=== PATIENT | male | born 1935 | race Caucasian/White ===

== ENCOUNTER → 2016-04-01 | Outpatient (REF) | payer OTHER ==
[~2016-04-01] MED LIST: AMLO10TA2 PO; ELIQ5TAB PO; K-TA1TAB PO; METO25TAB PO; PRAV40TA2 PO; PROA1AER INH; QUIN40TA5 PO; VITA200038 PO
[2016-04-01 14:44] LABS: PHOSPHORUS LEVEL 3.3 MG/DL (2.5-4.9)
== END ==
LOC: M LAB REF 13:24
DX: E21.3 Hyperparathyroidism, unspecified (principal)

== ENCOUNTER 2016-05-14 08:04 | Emergency (ER) | payer OTHER ==
[2016-05-14] MEDS ORDERED: OXYMETAZOLINE NASAL SPRAY (AFRIN) As Ordered ONE (08:31)
[2016-05-14 08:49] LABS: BASO # 0.1 K/mm3 (0.0-0.2); BASO % 0.5 % (0.0-1.0); EOS # 0.4 K/mm3 (0.0-0.50); EOS % 3.2 % (0.0-3.0); LARGE UNSTAINED CELL # 0.3 K/mm3 (0.0-0.4); LARGE UNSTAINED CELL % 2.7 % (0.0-4.0); LYMPH # 1.7 K/mm3 (1.5-4.5); LYMPH % 14.4 % (24.0-44.0); MEAN CORPUSCULAR HEMOGLOBIN 30.4 pg (27.0-33.0); MEAN CORPUSCULAR HGB CONC 33.3 g/dl (32.0-36.5); MEAN CORPUSCULAR VOLUME 91.2 fl (80.0-96.0); MONO # 0.6 K/mm3 (0.0-0.8); MONO % 4.8 % (0.0-5.0); NEUTROPHILS # 8.6 K/mm3 (1.8-7.7); NEUTROPHILS % 74.3 % (36.0-66.0); PLATELET COUNT, AUTOMATED 317 k/mm3 (150-450); WHITE BLOOD COUNT 11.5 K/mm3 (4.0-10.0)
[2016-05-14 08:55] LABS: INR 1.34
[2016-05-14 09:16] LABS: CALCIUM LEVEL 9.8 MG/DL (8.8-10.2); CREATININE FOR GFR 1.64 MG/DL (0.70-1.30); GLOMERULAR FILTRATION RATE 43.2 (>35); POTASSIUM SERUM 3.5 MEQ/L (3.5-5.1)
--- NOTE | 2016-05-14 11:18 | EDDOCDS ---
Physician Documentation [facility] Name: Callum Muse Age: 80 yrs Sex: Male : 1935 Arrival Date: 05/14/2016 Time: 08:04 Bed 9 Private MD: Donal Disposition: 05/14/16 11:07 Discharged to Home/Self Care. Impression: Epistaxis. - Condition is Stable. - Discharge Instructions: Nosebleed. - Medication Reconciliation, Local Pharmacy Hours form. - Follow up: Aniket Mansfield MD; When: 2 - 3 days; Reason: Recheck today's complaints. Follow up: Your own Physician; When: 2 - 3 days; Reason: Recheck today's complaints. Follow up: Larisa Acevedo; When: 2 - 3 days; Reason: Recheck today's complaints. - Problem is new. - Symptoms are resolved. - Notes: You were seen in the ED for nosebleed which resolved with pressure, cotton packing, and Afrin. We have discussed the case with your ENT physician Dr. Hooker who has recommended you may return home to follow up in the office - please call to arrange your appointment. You may hold today's Eliquis dose as this places you at risk for bleeding. Call your dough scaler and mixer Dr. Acevedo today to discuss the Eliquis and when you may resume it due to your nosebleeds. Bloodwork showed no acute findings but did show a slight decrease in kidney function. Please call your primary doctor to disuss this and arrange to be seen in the office for recheck. No nose blowing. Put nothing in the nose. Return to the ED for any return of bleeding down the back of the throat, bleeding that does not resolved with pressure, or any other concerns. Historical: - Allergies: Steroids; - Home Meds: 1. Eliquis oral Unknown oral 2 times per day - PMHx: Hypertension; Atrial Fib; Sleep Apnea w/ BiPap; CHF; - PSHx: TURP; - Social history: Smoking status: Patient states former smoker of tobacco. No barriers to communication noted, The patient speaks fluent Algerian, Speaks appropriately for age. - Family history: Not pertinent. - : The pt / caregiver states he / she is on anticoagulants: Eliquis Home medication list is obtained from family members. - Exposure Risk Screening:: None identified. Vital Signs: 05/14 08:14 BP 159 / 101; Pulse 106; Resp 16; Temp 97.0(TE); Pulse Ox 98% on R/A; Weight 92.53 kg / mlb1 203.99 lbs (R); Height 5 ft. 10 in. (177.80 cm) (R); Pain 0/10; 08:46 BP 164 / 99 (auto/); js13 08:46 Pulse 102 MON; Resp 16; Pulse Ox 98% ; js13 08:48 BP 151 / 82 (auto/); js13 08:48 Pulse 96 MON; Resp 16; Pulse Ox 93% on R/A; js13 09:01 BP 173 / 80 (auto/); js13 09:01 Pulse 92 MON; Resp 16; Pulse Ox 94% on R/A; js13 09:16 BP 171 / 78 (auto/); js13 09:16 Pulse 86 MON; Resp 16; Pulse Ox 96% on R/A; js13 09:31 BP 175 / 76 (auto/); js13 09:31 Pulse 108 MON; Resp 16; Pulse Ox 94% on R/A; js13 09:46 BP 159 / 74 (auto/); js13 09:46 Pulse 90 MON; Resp 14; Pulse Ox 95% on R/A; js13 10:01 BP 156 / 69 (auto/); js13 10:01 Pulse 88 MON; Resp 14; Pulse Ox 95% on R/A; js13 10:16 BP 171 / 81 (auto/); js13 10:16 Pulse 86 MON; Resp 16; Pulse Ox 96% on R/A; js13 10:31 BP 184 / 89 (auto/); js13 10:31 Pulse 90 MON; Resp 16; Pulse Ox 97% on R/A; js13 10:46 BP 157 / 66 (auto/); jo3 10:46 Pulse 88 MON; Resp 16; Pulse Ox 96% on R/A; jo3 11:01 BP 146 / 79 (auto/); jo3 11:01 Pulse 88 MON; Resp 16; Temp 97.1(O); Pulse Ox 96% on R/A; js13 08:14 Body Mass Index 29.27 (92.53 kg, 177.80 cm) mlb1 MDM: 08:35 IV Saline Lock ordered. br1 08:35 Pharmaceutical Sales/Pulse Ox/q 30 min VS ordered. br1 08:35 Recheck B/P ordered. br1 08:36 CBC with Diff Ordered. EDMS 08:36 BMP Ordered. EDMS 08:36 PT/INR Ordered. EDMS 08:36 PTT Ordered. EDMS 08:52 Financial registration complete. lg 09:21 CBC with Diff Reviewed. br1 09:21 PT/INR Reviewed. br1 09:21 PTT Reviewed. br1 09:43 [place] [place] was scanned into DocDep and attached to record. lg 10:41 BMP Reviewed. br1 Signatures: Dispatcher MedHost EDMS Dustin Rosario, Justin Reg lg Dmitri Saldana RN RN mlb1 Nain Avila MD MD br1 Charlee Paulino RN RN js13 The chart was reviewed and I authenticate all verbal orders and agree with the evaluation and treatment provided.Attachments: 09:43 [facility] [place] Agreement lg MTDD
--- NOTE | 2016-05-14 11:18 | EDDOCDS ---
Nurse's Notes [facility] Name: Callum Muse Age: 80 yrs Sex: Male : 1935 Arrival Date: 05/14/2016 Time: 08:04 Bed 9 Private MD: Donal Diagnosis: Epistaxis Presentation: 05/14 08:10 Presenting complaint: Patient states: Nose bleed right nares since 0530 this am. Adult mlb1 Sepsis Screening: The patient does not have new or worsening altered mentation. Patient's respiratory rate is less than 22. Systolic blood pressure is greater than 100. Patient has a qSOFA score of 0- Negative Sepsis Screen. Suicide/Homicide risk assessment- the patient denies having any suicidal and/or homicidal ideations and does not present with any other emotional, behavioral or mental health complaints. Status: Patient is not a radiology equipment servicer or dependent. Transition of care: patient was not received from another setting of care. 08:10 Acuity: TYRON Level 3 mlb1 08:10 Method Of Arrival: Walkin/Carried/Asstd mlb1 Triage Assessment: 08:15 General: Appears in no apparent distress, Behavior is anxious, cooperative. Pain: mlb1 Denies pain. EENT: Nares with bleeding noted on right. Historical: - Allergies: Steroids; - Home Meds: 1. Eliquis oral Unknown oral 2 times per day - PMHx: Hypertension; Atrial Fib; Sleep Apnea w/ BiPap; CHF; - PSHx: TURP; - Social history: Smoking status: Patient states former smoker of tobacco. No barriers to communication noted, The patient speaks fluent Irish, Speaks appropriately for age. - Family history: Not pertinent. - : The pt / caregiver states he / she is on anticoagulants: Eliquis Home medication list is obtained from family members. - Exposure Risk Screening:: None identified. Screenin:37 Screening information is obtained from the patient. Fall risk: At risk due to age. js13 Assistance ADL's: requires no assistance with activities of daily living. Abuse/DV Screen: The patient / caregiver reports he/she is: not in a situation that causes fear, pain or injury. Nutritional screening: No deficits noted. Advance Directives: There is no active DNR order. home support is adequate. Assessment: 09:35 General: Appears in no apparent distress, Behavior is appropriate for age, cooperative. js13 Pain: Denies pain. Neurological: Level of Consciousness is awake, alert. EENT: Nares with bleeding noted on right bleeding controlled and Afrin nasal spray applied to cotton balls and packed into right nare. . Cardiovascular: Chest pain is denied. Respiratory: Airway is patent Respiratory effort is even, unlabored, Respiratory pattern is regular, symmetrical, Breath sounds are clear Reports shortness of breath since past month. Derm: Skin is pink, warm & dry. 10:40 General: Appears in no apparent distress, comfortable, Behavior is appropriate for age, js13 cooperative. Pain: Denies pain. Neurological: Level of Consciousness is awake, alert. EENT: Nares BLEEDING HAS STOPPED. Respiratory: Airway is patent Respiratory effort is even, unlabored, Respiratory pattern is regular. Derm: Skin is pink, warm & dry. 11:04 Adult Sepsis Screening: The patient does not have new or worsening altered mentation. jo3 Patient's respiratory rate is less than 22. Systolic blood pressure is greater than 100. Patient has a qSOFA score of 0- Negative Sepsis Screen. General: Appears in no apparent distress, comfortable, Behavior is appropriate for age, cooperative. Pain: Denies pain. Neurological: Level of Consciousness is awake, alert. EENT: Nares on right Bleeding stopped. Respiratory: Airway is patent Respiratory effort is even, unlabored, Respiratory pattern is regular, symmetrical. Derm: Skin is pink, warm & dry. Vital Signs: 08:14 BP 159 / 101; Pulse 106; Resp 16; Temp 97.0(TE); Pulse Ox 98% on R/A; Weight 92.53 kg mlb1 (R); Height 5 ft. 10 in. (177.80 cm) (R); Pain 0/10; 08:46 BP 164 / 99 (auto/); js13 08:46 Pulse 102 MON; Resp 16; Pulse Ox 98% ; 13 08:48 BP 151 / 82 (auto/); 13 08:48 Pulse 96 MON; Resp 16; Pulse Ox 93% on R/A; 13 09:01 BP 173 / 80 (auto/); 13 09:01 Pulse 92 MON; Resp 16; Pulse Ox 94% on R/A; 09:16 BP 171 / 78 (auto/); 13 09:16 Pulse 86 MON; Resp 16; Pulse Ox 96% on R/A; js13 09:31 BP 175 / 76 (auto/); js13 09:31 Pulse 108 MON; Resp 16; Pulse Ox 94% on R/A; js13 09:46 BP 159 / 74 (auto/); js13 09:46 Pulse 90 MON; Resp 14; Pulse Ox 95% on R/A; js13 10:01 BP 156 / 69 (auto/); js13 10:01 Pulse 88 MON; Resp 14; Pulse Ox 95% on R/A; js13 10:16 BP 171 / 81 (auto/); js13 10:16 Pulse 86 MON; Resp 16; Pulse Ox 96% on R/A; js13 10:31 BP 184 / 89 (auto/); js13 10:31 Pulse 90 MON; Resp 16; Pulse Ox 97% on R/A; js13 10:46 BP 157 / 66 (auto/); jo3 10:46 Pulse 88 MON; Resp 16; Pulse Ox 96% on R/A; jo3 11:01 BP 146 / 79 (auto/); jo3 11:01 Pulse 88 MON; Resp 16; Temp 97.1(O); Pulse Ox 96% on R/A; js13 08:14 Body Mass Index 29.27 (92.53 kg, 177.80 cm) mlb1 Vitals: 08:14 Log In Time: May 14, 2016 at 08:03. mlb1 ED Course: 08:05 Patient visited by Navin Casey. mm15 08:05 Patient moved to Waiting mm15 08:06 [place] is Private Physician. mm15 08:10 Patient visited by Dmitri Saldana, CRESCENCIO. mlb1 08:10 Triage Initiated mlb1 08:15 Patient visited by Dmitri Saldana, CRESCENCIO. mlb1 08:16 Charlee Paulino,RN is Primary Nurse. mlb1 08:16 Patient moved to 9 mlb1 08:18 Nain Avila MD is Attending Physician. br1 08:34 Patient visited by Nain Avila MD. br1 09:37 Patient visited by Charlee Paulino,RN. js13 09:37 The patient / caregiver is instructed regarding the plan of care and ED course. js13 09:37 Inserted saline lock: 18 gauge in left antecubital area and blood collected. The js13 patient tolerated the procedure well. No procedures done that require assistance. Labs drawn. (by ED staff). Sent per order to lab. 09:39 Patient visited by Nain Avila MD. br1 09:43 [facility] Payment Agreement was scanned into NICO and attached to record. lg 10:42 Patient visited by Charlee Paulino,CRESCENCIO. js13 11:01 Patient visited by Nain Avila MD. br1 11:06 Patient visited by Charlee Soto RN. jo3 11:07 Aniket Mansfield MD is Referral Physician. br1 11:07 Your own Physician is Referral Physician. br1 11:07 Larisa Acevedo is Referral Physician. br1 11:08 Discontinued IV lock intact, bleeding controlled, pressure dressing applied, No jo3 redness/swelling at site. Order Results: Lab Order: CBC with Diff; SPEC'M 05/14/16 08:40 Test: WHITE BLOOD COUNT; Value: 11.5; Range: 4.0-10.0; Abnormal: Above high normal; Units: K/mm3; Status: F Test: RED BLOOD COUNT; Value: 4.22; Range: 4.30-6.10; Abnormal: Below low normal; Units: M/mm3; Status: F Test: HEMOGLOBIN; Value: 12.8; Range: 14.0-18.0; Abnormal: Below low normal; Units: g/dl; Status: F Test: HEMATOCRIT; Value: 38.5; Range: 42.0-52.0; Abnormal: Below low normal; Units: %; Status: F Test: MEAN CORPUSCULAR VOLUME; Value: 91.2; Range: 80.0-96.0; Units: fl; Status: F Test: MEAN CORPUSCULAR HEMOGLOBIN; Value: 30.4; Range: 27.0-33.0; Units: pg; Status: F Test: MEAN CORPUSCULAR HGB CONC; Value: 33.3; Range: 32.0-36.5; Units: g/dl; Status: F Test: RED CELL DISTRIBUTION WIDTH; Value: 14.0; Range: 11.5-14.5; Units: %; Status: F Test: PLATELET COUNT, AUTOMATED; Value: 317; Range: 150-450; Units: k/mm3; Status: F Test: NEUTROPHILS %; Value: 74.3; Range: 36.0-66.0; Abnormal: Above high normal; Units: %; Status: F Test: LYMPH %; Value: 14.4; Range: 24.0-44.0; Abnormal: Below low normal; Units: %; Status: F Test: MONO %; Value: 4.8; Range: 0.0-5.0; Units: %; Status: F Test: EOS %; Value: 3.2; Range: 0.0-3.0; Abnormal: Above high normal; Units: %; Status: F Test: BASO %; Value: 0.5; Range: 0.0-1.0; Units: %; Status: F Test: LARGE UNSTAINED CELL %; Value: 2.7; Range: 0.0-4.0; Units: %; Status: F Test: NEUTROPHILS #; Value: 8.6; Range: 1.8-7.7; Abnormal: Above high normal; Units: K/mm3; Status: F Test: LYMPH #; Value: 1.7; Range: 1.5-4.5; Units: K/mm3; Status: F Test: MONO #; Value: 0.6; Range: 0.0-0.8; Units: K/mm3; Status: F Test: EOS #; Value: 0.4; Range: 0.0-0.50; Units: K/mm3; Status: F Test: BASO #; Value: 0.1; Range: 0.0-0.2; Units: K/mm3; Status: F Test: LARGE UNSTAINED CELL #; Value: 0.3; Range: 0.0-0.4; Units: K/mm3; Status: F Lab Order: [facility]; SPEC'M 05/14/16 08:40 Test: GLUCOSE, FASTING; Value: 115; Range: 83-110; Abnormal: Above high normal; Units: MG/DL; Status: F Test: BLOOD UREA NITROGEN; Value: 37; Range: 7-18; Abnormal: Above high normal; Units: MG/DL; Status: F Test: CREATININE FOR GFR; Value: 1.64; Range: 0.70-1.30; Abnormal: Above high normal; Units: MG/DL; Status: F Test: GLOMERULAR FILTRATION RATE; Value: 43.2; Range: >35; Status: F Test: SODIUM LEVEL; Value: 144; Range: 136-145; Units: MEQ/L; Status: F Test: POTASSIUM SERUM; Value: 3.5; Range: 3.5-5.1; Units: MEQ/L; Status: F Test: CHLORIDE LEVEL; Value: 105; Range: 98-107; Units: MEQ/L; Status: F Test: CARBON DIOXIDE LEVEL; Value: 32; Range: 21-32; Units: MEQ/L; Status: F Test: ANION GAP; Value: 7; Range: 8-16; Abnormal: Below low normal; Units: MEQ/L; Status: F Test: CALCIUM LEVEL; Value: 9.8; Range: 8.8-10.2; Units: MG/DL; Status: F Test Note: ; Units are mL/min/1.73 m2 Chronic Kidney Disease Staging per NKF: Stage I & II GFR >=60 Normal to Mildly Decreased Stage III GFR 30-59 Moderately Decreased Stage IV GFR 15-29 Severely Decreased Stage V GFR <15 Very Little GFR Left ESRD GFR <15 on MACHINE BOBBIN WINDER Lab Order: PT/INR; SPEC'M 05/14/16 08:40 Test: PROTHROMBIN TIME; Value: 16.7; Range: 12.3-14.5; Abnormal: Above high normal; Units: SECONDS; Status: F Test: INR; Value: 1.34; Status: F Test Note: ; THERAPUTIC HUMAN INR VALUES INDICATIONS NORMAL RANGES PROPHYLAXIS/TREATMENT OF: VENOUS THROMBOSIS 2.0-3.0 PULMONARY EMBOLISM 2.0-3.0 PREVENTION OF SYSTEMIC EMBOLISM FROM: TISSUE HEART VALVES 2.0-3.0 ACUTE MYOCARDIAL INFARCTION 2.0-3.0 VALVULAR HEART DISEASE 2.0-3.0 ATRIAL FIBRILLATION 2.0-3.0 MECHANICAL VALVES(HIGH RISK) 2.5-3.5 RECURRENT MYOCARDIAL INFARCTION 2.5-3.5 Lab Order: PTT; SPEC'M 05/14/16 08:40 Test: PARTIAL THROMBOPLASTIN TIME; Value: 34.6; Range: 26.6-37.1; Units: SECONDS; Status: F Outcome: 11:07 Discharge ordered by Provider. br1 11:16 Discharge Assessment: Patient awake, alert and oriented x 3. No cognitive and/or js13 functional deficits noted. Patient verbalized understanding of disposition instructions. patient administered narcotics - no. The following High Risk Discharge criteria are identified: None. Discharged to home ambulatory, with family. Condition: stable. Discharge instructions given to patient, Instructed on discharge instructions, follow up and referral plans. medication usage, Demonstrated understanding of instructions, medications, Pt was receptive of discharge instructions/ teaching. No special radiology studies were completed. Property :Personal belongings accompany Pt. 11:17 Patient left the ED. js13 Signatures: Dustin Rosario, Reg Reg lg Dmitri Saldana RN RN mlb1 Charlee Soto,RN RN jo3 Nain Avila MD MD br1 Charlee Paulino,RN RN js13 Navin Casey mm15 Corrections: (The following items were deleted from the chart) 11:17 11:01 Pulse 88bpm; MonitorResp 16bpm; Pulse Ox 96% RA; joRivka js13 MTDD
--- NOTE | 2016-05-16 12:18 | EDDOCDS ---
Physician Documentation [facility] Name: Callum Muse Age: 80 yrs Sex: Male : 1935 Arrival Date: 05/14/2016 Time: 08:04 Bed 9 Private MD: Donal Disposition: 05/14/16 11:07 Discharged to Home/Self Care. Impression: Epistaxis. - Condition is Stable. - Discharge Instructions: Nosebleed. - Medication Reconciliation, Local Pharmacy Hours form. - Follow up: Aniket Mansfield MD; When: 2 - 3 days; Reason: Recheck today's complaints. Follow up: Your own Physician; When: 2 - 3 days; Reason: Recheck today's complaints. Follow up: Larisa Acevedo; When: 2 - 3 days; Reason: Recheck today's complaints. - Problem is new. - Symptoms are resolved. - Notes: You were seen in the ED for nosebleed which resolved with pressure, cotton packing, and Afrin. We have discussed the case with your ENT physician Dr. Hooker who has recommended you may return home to follow up in the office - please call to arrange your appointment. You may hold today's Eliquis dose as this places you at risk for bleeding. Call your mental health social worker Dr. Acevedo today to discuss the Eliquis and when you may resume it due to your nosebleeds. Bloodwork showed no acute findings but did show a slight decrease in kidney function. Please call your primary doctor to disuss this and arrange to be seen in the office for recheck. No nose blowing. Put nothing in the nose. Return to the ED for any return of bleeding down the back of the throat, bleeding that does not resolved with pressure, or any other concerns. Historical: - Allergies: Steroids; - Home Meds: 1. Eliquis oral Unknown oral 2 times per day - PMHx: Hypertension; Atrial Fib; Sleep Apnea w/ BiPap; CHF; - PSHx: TURP; - Social history: Smoking status: Patient states former smoker of tobacco. No barriers to communication noted, The patient speaks fluent Bermudian, Speaks appropriately for age. - Family history: Not pertinent. - : The pt / caregiver states he / she is on anticoagulants: Eliquis Home medication list is obtained from family members. - Exposure Risk Screening:: None identified. Vital Signs: 05/14 08:14 BP 159 / 101; Pulse 106; Resp 16; Temp 97.0(TE); Pulse Ox 98% on R/A; Weight 92.53 kg / mlb1 203.99 lbs (R); Height 5 ft. 10 in. (177.80 cm) (R); Pain 0/10; 08:46 BP 164 / 99 (auto/); js13 08:46 Pulse 102 MON; Resp 16; Pulse Ox 98% ; js13 08:48 BP 151 / 82 (auto/); js13 08:48 Pulse 96 MON; Resp 16; Pulse Ox 93% on R/A; js13 09:01 BP 173 / 80 (auto/); js13 09:01 Pulse 92 MON; Resp 16; Pulse Ox 94% on R/A; js13 09:16 BP 171 / 78 (auto/); js13 09:16 Pulse 86 MON; Resp 16; Pulse Ox 96% on R/A; js13 09:31 BP 175 / 76 (auto/); js13 09:31 Pulse 108 MON; Resp 16; Pulse Ox 94% on R/A; js13 09:46 BP 159 / 74 (auto/); js13 09:46 Pulse 90 MON; Resp 14; Pulse Ox 95% on R/A; js13 10:01 BP 156 / 69 (auto/); js13 10:01 Pulse 88 MON; Resp 14; Pulse Ox 95% on R/A; js13 10:16 BP 171 / 81 (auto/); js13 10:16 Pulse 86 MON; Resp 16; Pulse Ox 96% on R/A; js13 10:31 BP 184 / 89 (auto/); js13 10:31 Pulse 90 MON; Resp 16; Pulse Ox 97% on R/A; js13 10:46 BP 157 / 66 (auto/); jo3 10:46 Pulse 88 MON; Resp 16; Pulse Ox 96% on R/A; jo3 11:01 BP 146 / 79 (auto/); jo3 11:01 Pulse 88 MON; Resp 16; Temp 97.1(O); Pulse Ox 96% on R/A; js13 08:14 Body Mass Index 29.27 (92.53 kg, 177.80 cm) mlb1 MDM: 08:35 IV Saline Lock ordered. br1 08:35 Cocoa Bean Roaster Helper/Pulse Ox/q 30 min VS ordered. br1 08:35 Recheck B/P ordered. br1 08:36 CBC with Diff Ordered. EDMS 08:36 BMP Ordered. EDMS 08:36 PT/INR Ordered. EDMS 08:36 PTT Ordered. EDMS 08:52 Financial registration complete. lg 09:21 CBC with Diff Reviewed. br1 09:21 PT/INR Reviewed. br1 09:21 PTT Reviewed. br1 09:43 [facility] [place] was scanned into [employer] and attached to record. lg 10:41 BMP Reviewed. br1 12:40 T-Sheet-- Draft Copy was scanned into [employer] and attached to record. klr Signatures: Dispatcher [employer]Host EDDustin Elmore, Reg Reg lg Dmitri Saldana RN RN mlb1 Nain Avila MD MD br1 Charlee Paulino RN RN js13 Treasure Fabian klr The chart was reviewed and I authenticate all verbal orders and agree with the evaluation and treatment provided.Attachments: 09:43 [facility] [place] Agreement lg 12:40 T-Sheet-- Draft Copy klr Chart Complete MTDD
--- NOTE | 2016-05-16 12:18 | EDDOCDS ---
Nurse's Notes [facility] Name: Callum Muse Age: 80 yrs Sex: Male : 1935 Arrival Date: 05/14/2016 Time: 08:04 Bed 9 Private MD: Donal Diagnosis: Epistaxis Presentation: 05/14 08:10 Presenting complaint: Patient states: Nose bleed right nares since 0530 this am. Adult mlb1 Sepsis Screening: The patient does not have new or worsening altered mentation. Patient's respiratory rate is less than 22. Systolic blood pressure is greater than 100. Patient has a qSOFA score of 0- Negative Sepsis Screen. Suicide/Homicide risk assessment- the patient denies having any suicidal and/or homicidal ideations and does not present with any other emotional, behavioral or mental health complaints. 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 Transition of care: patient was not received from another setting of care. 08:10 Acuity: TYRON Level 3 mlb1 08:10 Method Of Arrival: Walkin/Carried/Asstd mlb1 Triage Assessment: 08:15 General: Appears in no apparent distress, Behavior is anxious, cooperative. Pain: mlb1 Denies pain. EENT: Nares with bleeding noted on right. Historical: - Allergies: Steroids; - Home Meds: 1. Eliquis oral Unknown oral 2 times per day - PMHx: Hypertension; Atrial Fib; Sleep Apnea w/ BiPap; CHF; - PSHx: TURP; - Social history: Smoking status: Patient states former smoker of tobacco. No barriers to communication noted, The patient speaks fluent Tajik, Speaks appropriately for age. - Family history: Not pertinent. - : The pt / caregiver states he / she is on anticoagulants: Eliquis Home medication list is obtained from family members. - Exposure Risk Screening:: None identified. Screenin:37 Screening information is obtained from the patient. Fall risk: At risk due to age. js13 Assistance ADL's: requires no assistance with activities of daily living. Abuse/DV Screen: The patient / caregiver reports he/she is: not in a situation that causes fear, pain or injury. Nutritional screening: No deficits noted. Advance Directives: There is no active DNR order. home support is adequate. Assessment: 09:35 General: Appears in no apparent distress, Behavior is appropriate for age, cooperative. js13 Pain: Denies pain. Neurological: Level of Consciousness is awake, alert. EENT: Nares with bleeding noted on right bleeding controlled and Afrin nasal spray applied to cotton balls and packed into right nare. . Cardiovascular: Chest pain is denied. Respiratory: Airway is patent Respiratory effort is even, unlabored, Respiratory pattern is regular, symmetrical, Breath sounds are clear Reports shortness of breath since past month. Derm: Skin is pink, warm & dry. 10:40 General: Appears in no apparent distress, comfortable, Behavior is appropriate for age, js13 cooperative. Pain: Denies pain. Neurological: Level of Consciousness is awake, alert. EENT: Nares BLEEDING HAS STOPPED. Respiratory: Airway is patent Respiratory effort is even, unlabored, Respiratory pattern is regular. Derm: Skin is pink, warm & dry. 11:04 Adult Sepsis Screening: The patient does not have new or worsening altered mentation. jo3 Patient's respiratory rate is less than 22. Systolic blood pressure is greater than 100. Patient has a qSOFA score of 0- Negative Sepsis Screen. General: Appears in no apparent distress, comfortable, Behavior is appropriate for age, cooperative. Pain: Denies pain. Neurological: Level of Consciousness is awake, alert. EENT: Nares on right Bleeding stopped. Respiratory: Airway is patent Respiratory effort is even, unlabored, Respiratory pattern is regular, symmetrical. Derm: Skin is pink, warm & dry. Vital Signs: 08:14 BP 159 / 101; Pulse 106; Resp 16; Temp 97.0(TE); Pulse Ox 98% on R/A; Weight 92.53 kg mlb1 (R); Height 5 ft. 10 in. (177.80 cm) (R); Pain 0/10; 08:46 BP 164 / 99 (auto/); js13 08:46 Pulse 102 MON; Resp 16; Pulse Ox 98% ; 13 08:48 BP 151 / 82 (auto/); 13 08:48 Pulse 96 MON; Resp 16; Pulse Ox 93% on R/A; 13 09:01 BP 173 / 80 (auto/); 13 09:01 Pulse 92 MON; Resp 16; Pulse Ox 94% on R/A; 09:16 BP 171 / 78 (auto/); 13 09:16 Pulse 86 MON; Resp 16; Pulse Ox 96% on R/A; js13 09:31 BP 175 / 76 (auto/); js13 09:31 Pulse 108 MON; Resp 16; Pulse Ox 94% on R/A; js13 09:46 BP 159 / 74 (auto/); js13 09:46 Pulse 90 MON; Resp 14; Pulse Ox 95% on R/A; js13 10:01 BP 156 / 69 (auto/); js13 10:01 Pulse 88 MON; Resp 14; Pulse Ox 95% on R/A; js13 10:16 BP 171 / 81 (auto/); js13 10:16 Pulse 86 MON; Resp 16; Pulse Ox 96% on R/A; js13 10:31 BP 184 / 89 (auto/); js13 10:31 Pulse 90 MON; Resp 16; Pulse Ox 97% on R/A; js13 10:46 BP 157 / 66 (auto/); jo3 10:46 Pulse 88 MON; Resp 16; Pulse Ox 96% on R/A; jo3 11:01 BP 146 / 79 (auto/); jo3 11:01 Pulse 88 MON; Resp 16; Temp 97.1(O); Pulse Ox 96% on R/A; js13 08:14 Body Mass Index 29.27 (92.53 kg, 177.80 cm) mlb1 Vitals: 08:14 Log In Time: May 14, 2016 at 08:03. mlb1 ED Course: 08:05 Patient visited by Navin Casey. mm15 08:05 Patient moved to Waiting mm15 08:06 [place] is Private Physician. mm15 08:10 Patient visited by Dmitri Saldana, CRESCENCIO. mlb1 08:10 Triage Initiated mlb1 08:15 Patient visited by Dmitri Saldana, CRESCENCIO. mlb1 08:16 Charlee Paulino,RN is Primary Nurse. mlb1 08:16 Patient moved to 9 mlb1 08:18 Nain Avila MD is Attending Physician. br1 08:34 Patient visited by Nain Avila MD. br1 09:37 Patient visited by Charlee Paulino,RN. js13 09:37 The patient / caregiver is instructed regarding the plan of care and ED course. js13 09:37 Inserted saline lock: 18 gauge in left antecubital area and blood collected. The js13 patient tolerated the procedure well. No procedures done that require assistance. Labs drawn. (by ED staff). Sent per order to lab. 09:39 Patient visited by Nain Avila MD. br1 09:43 [facility] Payment Agreement was scanned into MixRank and attached to record. lg 10:42 Patient visited by Charlee Paulino,CRESCENCIO. js13 11:01 Patient visited by Nain Avila MD. br1 11:06 Patient visited by Charlee Soto RN. jo3 11:07 Aniket Mansfield MD is Referral Physician. br1 11:07 Your own Physician is Referral Physician. br1 11:07 Larisa Acevedo is Referral Physician. br1 11:08 Discontinued IV lock intact, bleeding controlled, pressure dressing applied, No jo3 redness/swelling at site. 12:40 T-Sheet-- Draft Copy was scanned into Mix[employer] and attached to record. klr Order Results: Lab Order: CBC with Diff; SPEC'M 05/14/16 08:40 Test: WHITE BLOOD COUNT; Value: 11.5; Range: 4.0-10.0; Abnormal: Above high normal; Units: K/mm3; Status: F Test: RED BLOOD COUNT; Value: 4.22; Range: 4.30-6.10; Abnormal: Below low normal; Units: M/mm3; Status: F Test: HEMOGLOBIN; Value: 12.8; Range: 14.0-18.0; Abnormal: Below low normal; Units: g/dl; Status: F Test: HEMATOCRIT; Value: 38.5; Range: 42.0-52.0; Abnormal: Below low normal; Units: %; Status: F Test: MEAN CORPUSCULAR VOLUME; Value: 91.2; Range: 80.0-96.0; Units: fl; Status: F Test: MEAN CORPUSCULAR HEMOGLOBIN; Value: 30.4; Range: 27.0-33.0; Units: pg; Status: F Test: MEAN CORPUSCULAR HGB CONC; Value: 33.3; Range: 32.0-36.5; Units: g/dl; Status: F Test: RED CELL DISTRIBUTION WIDTH; Value: 14.0; Range: 11.5-14.5; Units: %; Status: F Test: PLATELET COUNT, AUTOMATED; Value: 317; Range: 150-450; Units: k/mm3; Status: F Test: NEUTROPHILS %; Value: 74.3; Range: 36.0-66.0; Abnormal: Above high normal; Units: %; Status: F Test: LYMPH %; Value: 14.4; Range: 24.0-44.0; Abnormal: Below low normal; Units: %; Status: F Test: MONO %; Value: 4.8; Range: 0.0-5.0; Units: %; Status: F Test: EOS %; Value: 3.2; Range: 0.0-3.0; Abnormal: Above high normal; Units: %; Status: F Test: BASO %; Value: 0.5; Range: 0.0-1.0; Units: %; Status: F Test: LARGE UNSTAINED CELL %; Value: 2.7; Range: 0.0-4.0; Units: %; Status: F Test: NEUTROPHILS #; Value: 8.6; Range: 1.8-7.7; Abnormal: Above high normal; Units: K/mm3; Status: F Test: LYMPH #; Value: 1.7; Range: 1.5-4.5; Units: K/mm3; Status: F Test: MONO #; Value: 0.6; Range: 0.0-0.8; Units: K/mm3; Status: F Test: EOS #; Value: 0.4; Range: 0.0-0.50; Units: K/mm3; Status: F Test: BASO #; Value: 0.1; Range: 0.0-0.2; Units: K/mm3; Status: F Test: LARGE UNSTAINED CELL #; Value: 0.3; Range: 0.0-0.4; Units: K/mm3; Status: F Lab Order: [facility]; SPEC'M 05/14/16 08:40 Test: GLUCOSE, FASTING; Value: 115; Range: 83-110; Abnormal: Above high normal; Units: MG/DL; Status: F Test: BLOOD UREA NITROGEN; Value: 37; Range: 7-18; Abnormal: Above high normal; Units: MG/DL; Status: F Test: CREATININE FOR GFR; Value: 1.64; Range: 0.70-1.30; Abnormal: Above high normal; Units: MG/DL; Status: F Test: GLOMERULAR FILTRATION RATE; Value: 43.2; Range: >35; Status: F Test: SODIUM LEVEL; Value: 144; Range: 136-145; Units: MEQ/L; Status: F Test: POTASSIUM SERUM; Value: 3.5; Range: 3.5-5.1; Units: MEQ/L; Status: F Test: CHLORIDE LEVEL; Value: 105; Range: 98-107; Units: MEQ/L; Status: F Test: CARBON DIOXIDE LEVEL; Value: 32; Range: 21-32; Units: MEQ/L; Status: F Test: ANION GAP; Value: 7; Range: 8-16; Abnormal: Below low normal; Units: MEQ/L; Status: F Test: CALCIUM LEVEL; Value: 9.8; Range: 8.8-10.2; Units: MG/DL; Status: F Test Note: ; Units are mL/min/1.73 m2 Chronic Kidney Disease Staging per NKF: Stage I & II GFR >=60 Normal to Mildly Decreased Stage III GFR 30-59 Moderately Decreased Stage IV GFR 15-29 Severely Decreased Stage V GFR <15 Very Little GFR Left ESRD GFR <15 on DITCH DIGGER Lab Order: PT/INR; SPEC'05/14/16 08:40 Test: PROTHROMBIN TIME; Value: 16.7; Range: 12.3-14.5; Abnormal: Above high normal; Units: SECONDS; Status: F Test: INR; Value: 1.34; Status: F Test Note: ; THERAPUTIC HUMAN INR VALUES INDICATIONS NORMAL RANGES PROPHYLAXIS/TREATMENT OF: VENOUS THROMBOSIS 2.0-3.0 PULMONARY EMBOLISM 2.0-3.0 PREVENTION OF SYSTEMIC EMBOLISM FROM: TISSUE HEART VALVES 2.0-3.0 ACUTE MYOCARDIAL INFARCTION 2.0-3.0 VALVULAR HEART DISEASE 2.0-3.0 ATRIAL FIBRILLATION 2.0-3.0 MECHANICAL VALVES(HIGH RISK) 2.5-3.5 RECURRENT MYOCARDIAL INFARCTION 2.5-3.5 Lab Order: PTT; SPEC'05/14/16 08:40 Test: PARTIAL THROMBOPLASTIN TIME; Value: 34.6; Range: 26.6-37.1; Units: SECONDS; Status: F Outcome: 11:07 Discharge ordered by Provider. br1 11:16 Discharge Assessment: Patient awake, alert and oriented x 3. No cognitive and/or js13 functional deficits noted. Patient verbalized understanding of disposition instructions. patient administered narcotics - no. The following High Risk Discharge criteria are identified: None. Discharged to home ambulatory, with family. Condition: stable. Discharge instructions given to patient, Instructed on discharge instructions, follow up and referral plans. medication usage, Demonstrated understanding of instructions, medications, Pt was receptive of discharge instructions/ teaching. No special radiology studies were completed. Property :Personal belongings accompany Pt. 11:17 Patient left the ED. js13 Signatures: Dustin Rosario, Justin Reg lg Dmitri Saldana RN RN mlb1 Charlee Soto,RN RN jo3 Nain Avila MD MD br1 Charlee Paulino,RN RN js13 Navin Casey mm15 Treasure Fabian Corrections: (The following items were deleted from the chart) 11:17 11:01 Pulse 88bpm; MonitorResp 16bpm; Pulse Ox 96% RA; jo3 js13 Chart Complete MTDD
--- NOTE | 2016-05-16 12:18 | EDDOCDS ---
Physician Documentation [facility] Name: Callum Muse Age: 80 yrs Sex: Male : 1935 Arrival Date: 05/14/2016 Time: 08:04 Bed 9 Private MD: Donal Disposition: 05/14/16 11:07 Discharged to Home/Self Care. Impression: Epistaxis. - Condition is Stable. - Discharge Instructions: Nosebleed. - Medication Reconciliation, Local Pharmacy Hours form. - Follow up: Aniket Mansfield MD; When: 2 - 3 days; Reason: Recheck today's complaints. Follow up: Your own Physician; When: 2 - 3 days; Reason: Recheck today's complaints. Follow up: Larisa Acevedo; When: 2 - 3 days; Reason: Recheck today's complaints. - Problem is new. - Symptoms are resolved. - Notes: You were seen in the ED for nosebleed which resolved with pressure, cotton packing, and Afrin. We have discussed the case with your ENT physician Dr. Hooker who has recommended you may return home to follow up in the office - please call to arrange your appointment. You may hold today's Eliquis dose as this places you at risk for bleeding. Call your traveling sales representative Dr. Acevedo today to discuss the Eliquis and when you may resume it due to your nosebleeds. Bloodwork showed no acute findings but did show a slight decrease in kidney function. Please call your primary doctor to disuss this and arrange to be seen in the office for recheck. No nose blowing. Put nothing in the nose. Return to the ED for any return of bleeding down the back of the throat, bleeding that does not resolved with pressure, or any other concerns. Historical: - Allergies: Steroids; - Home Meds: 1. Eliquis oral Unknown oral 2 times per day - PMHx: Hypertension; Atrial Fib; Sleep Apnea w/ BiPap; CHF; - PSHx: TURP; - Social history: Smoking status: Patient states former smoker of tobacco. No barriers to communication noted, The patient speaks fluent Solomon Islander, Speaks appropriately for age. - Family history: Not pertinent. - : The pt / caregiver states he / she is on anticoagulants: Eliquis Home medication list is obtained from family members. - Exposure Risk Screening:: None identified. Vital Signs: 05/14 08:14 BP 159 / 101; Pulse 106; Resp 16; Temp 97.0(TE); Pulse Ox 98% on R/A; Weight 92.53 kg / mlb1 203.99 lbs (R); Height 5 ft. 10 in. (177.80 cm) (R); Pain 0/10; 08:46 BP 164 / 99 (auto/); js13 08:46 Pulse 102 MON; Resp 16; Pulse Ox 98% ; js13 08:48 BP 151 / 82 (auto/); js13 08:48 Pulse 96 MON; Resp 16; Pulse Ox 93% on R/A; js13 09:01 BP 173 / 80 (auto/); js13 09:01 Pulse 92 MON; Resp 16; Pulse Ox 94% on R/A; js13 09:16 BP 171 / 78 (auto/); js13 09:16 Pulse 86 MON; Resp 16; Pulse Ox 96% on R/A; js13 09:31 BP 175 / 76 (auto/); js13 09:31 Pulse 108 MON; Resp 16; Pulse Ox 94% on R/A; js13 09:46 BP 159 / 74 (auto/); js13 09:46 Pulse 90 MON; Resp 14; Pulse Ox 95% on R/A; js13 10:01 BP 156 / 69 (auto/); js13 10:01 Pulse 88 MON; Resp 14; Pulse Ox 95% on R/A; js13 10:16 BP 171 / 81 (auto/); js13 10:16 Pulse 86 MON; Resp 16; Pulse Ox 96% on R/A; js13 10:31 BP 184 / 89 (auto/); js13 10:31 Pulse 90 MON; Resp 16; Pulse Ox 97% on R/A; js13 10:46 BP 157 / 66 (auto/); jo3 10:46 Pulse 88 MON; Resp 16; Pulse Ox 96% on R/A; jo3 11:01 BP 146 / 79 (auto/); jo3 11:01 Pulse 88 MON; Resp 16; Temp 97.1(O); Pulse Ox 96% on R/A; js13 08:14 Body Mass Index 29.27 (92.53 kg, 177.80 cm) mlb1 MDM: 08:35 IV Saline Lock ordered. br1 08:35 Data Center Operator/Pulse Ox/q 30 min VS ordered. br1 08:35 Recheck B/P ordered. br1 08:36 CBC with Diff Ordered. EDMS 08:36 BMP Ordered. EDMS 08:36 PT/INR Ordered. EDMS 08:36 PTT Ordered. EDMS 08:52 Financial registration complete. lg 09:21 CBC with Diff Reviewed. br1 09:21 PT/INR Reviewed. br1 09:21 PTT Reviewed. br1 09:43 [facility] Payment Agreement was scanned into Joos[employer] and attached to record. lg 10:41 BMP Reviewed. br1 12:40 T-Sheet-- Draft Copy was scanned into [employer]os[employer] and attached to record. klr Signatures: Dispatcher [employer] EDDustin Elmore, Reg Reg lg Dmitri Saldana RN RN mlb1 Nain Avila MD MD br1 Charlee Paulino RN RN js13 Treasure Fabian klr The chart was reviewed and I authenticate all verbal orders and agree with the evaluation and treatment provided.Attachments: 09:43 [facility] Payment Agreement lg 12:40 T-Sheet-- Draft Copy klr Chart Complete MTDD
== END 2016-05-14 11:17 | disposition home or self-care (01) ==
LOC: M ED 08:04
DX: R04.0 Epistaxis (principal); I10 Essential (primary) hypertension; I48.91 Unspecified atrial fibrillation; G47.30 Sleep apnea, unspecified; I50.9 Heart failure, unspecified; Z87.891 Personal history of nicotine dependence; Z79.01 Long term (current) use of anticoagulants; Z88.8 Allergy status to other drugs, medicaments and biological substances

== ENCOUNTER → 2016-05-28 | Outpatient (REF) | payer OTHER ==
[~2016-05-28] MED LIST changes: +ALBU83IN INH; +ASPI81TA85 PO; +ELIQ2.5T PO; +IPRA2IN INH; +MULT1TAB18 PO; +Metoprolol PO; +TORS100T PO; +TRAZ50TA4 PO
== END ==
LOC: M LAB REF 10:26
PROVIDERS: ATTEND Nurse Practitioner Adult Health
DX: I50.33 Acute on chronic diastolic (congestive) heart failure (principal); R06.02 Shortness of breath; R07.89 Other chest pain

== ENCOUNTER 2016-05-29 15:13 | Emergency (ER) | payer OTHER ==
[~2016-05-29] VITALS: Ht 177.8 cm; Wt 94.3 kg
[~2016-05-29 15:13] MED LIST changes: -ALBU83IN INH; -ASPI81TA85 PO; -ELIQ2.5T PO; -IPRA2IN INH; -MULT1TAB18 PO; -Metoprolol PO; -TORS100T PO; -TRAZ50TA4 PO
[2016-05-29] MEDS ORDERED: ALBU83IN INH (15:45)
[2016-05-29] MEDS ORDERED: IPRA2IN INH (15:55)
[2016-05-29] MEDS ORDERED: ASPI81TA85 PO (15:55)
[2016-05-29] MEDS ORDERED: Metoprolol PO (15:55)
[2016-05-29] MEDS ORDERED: TRAZ50TA4 PO (15:55)
[2016-05-29] MEDS ORDERED: ELIQ2.5T PO (15:55)
[2016-05-29] MEDS ORDERED: MULT1TAB18 PO (15:55)
[2016-05-29] MEDS ORDERED: TORS100T PO (15:55)
[2016-05-29 17:06] LABS: BASO # 0.1 K/mm3 (0.0-0.2); BASO % 0.7 % (0.0-1.0); EOS # 0.4 K/mm3 (0.0-0.50); LARGE UNSTAINED CELL # 0.3 K/mm3 (0.0-0.4); LARGE UNSTAINED CELL % 2.9 % (0.0-4.0); LYMPH # 1.7 K/mm3 (1.5-4.5); LYMPH % 18.8 % (24.0-44.0); MEAN CORPUSCULAR HEMOGLOBIN 29.1 pg (27.0-33.0); MEAN CORPUSCULAR HGB CONC 31.7 g/dl (32.0-36.5); MEAN CORPUSCULAR VOLUME 91.7 fl (80.0-96.0); MONO # 0.4 K/mm3 (0.0-0.8); MONO % 4.9 % (0.0-5.0); NEUTROPHILS # 6.2 K/mm3 (1.8-7.7); NEUTROPHILS % 68.7 % (36.0-66.0); PLATELET COUNT, AUTOMATED 293 k/mm3 (150-450); RED CELL DISTRIBUTION WIDTH 15.1 % (11.5-14.5)
[2016-05-29 17:19] LABS: CALCIUM LEVEL 9.3 MG/DL (8.8-10.2); CREATININE FOR GFR 1.38 MG/DL (0.70-1.30); GLOMERULAR FILTRATION RATE 52.8 (>35)
[2016-05-29 17:21] LABS: POTASSIUM SERUM 4.2 MEQ/L (3.5-5.1)
--- NOTE | 2016-05-29 17:25 | REP ---
CHEST, TWO VIEWS: Two views of the chest are performed and compared to prior studies, the most recent of which is 05/28/2016. There is mild cardiomegaly. There is no acute infiltrate. There is mild elevation of the right hemidiaphragm. There is some tortuosity of the thoracic aorta. The mediastinal silhouette is unchanged. There are mild degenerative changes of the spine. IMPRESSION: Mild cardiomegaly. No acute pulmonary disease. Signed by Chris Juarez MD 05/30/2016 08:30 P
[2016-05-29 17:51] LABS: INR 1.22
[2016-05-29] MEDS ORDERED: METOPROLOL SUCC (TopROL XL) 100MG *XL* TAB PO ONE (20:15)
[2016-05-29] MEDS ORDERED: TORSEMIDE 100 MG TAB PO ONE (20:30)
[2016-05-29 20:45] VITALS: BP 219/126
[2016-05-29 21:41] VITALS: BP 183/86
--- NOTE | 2016-05-29 21:57 | ECGEPIP ---
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
[2016-05-30] MEDS ORDERED: TORSEMIDE 100 MG TAB PO SCH (09:00)
== END 2016-05-29 21:47 | disposition short-term general hospital (02) ==
LOC: M ED 16:33
DX: I21.4 Non-ST elevation (NSTEMI) myocardial infarction (principal); I48.91 Unspecified atrial fibrillation; I50.9 Heart failure, unspecified; I10 Essential (primary) hypertension; N40.0 Benign prostatic hyperplasia without lower urinary tract symptoms; Z82.49 Family history of ischemic heart disease and other diseases of the circulatory system; Z79.01 Long term (current) use of anticoagulants; Z87.891 Personal history of nicotine dependence

== ENCOUNTER → 2016-11-26 | Outpatient (REF) | payer OTHER ==
[~2016-11-26] MED LIST changes: +ALBU83IN INH; +ASPI81TA85 PO; +ELIQ2.5T PO; +IPRA2IN INH; +MULT1TAB18 PO; +Metoprolol PO; -PROA1AER INH; +PROAAER10 INH; +QUIN1TAB15 PO; -QUIN40TA5 PO; +TORS100T PO; +TRAZ50TA11 PO
[2016-11-27 13:28] LABS: PHOSPHORUS LEVEL 3.6 MG/DL (2.5-4.9)
== END ==
LOC: M LAB REF 17:15
PROVIDERS: ATTEND Nurse Practitioner Adult Health
DX: I48.2 Chronic atrial fibrillation (principal)

== ENCOUNTER → 2017-03-13 | Outpatient (REF) | payer OTHER | LOC: M LAB REF 12:46 | PROVIDERS: ATTEND Internal Medicine | DX: R56.9 Unspecified convulsions (principal) ==

== ENCOUNTER → 2017-05-07 | Outpatient (REF) | payer OTHER ==
[2017-05-07 14:34] LABS: DIGOXIN LEVEL 1.5 NG/ML (0.5-2.0)
== END ==
LOC: M LAB REF 13:42
DX: I48.2 Chronic atrial fibrillation (principal)
CPT/HCPCS: 80162

== ENCOUNTER 2017-07-16 10:07 | Emergency (ER) | payer OTHER ==
[2017-07-16] MEDS ORDERED: SILVER NITRATE APPLICATOR As Ordered ×2 (11:31→11:32)
== END 2017-07-16 13:58 | disposition home or self-care (01) ==
LOC: M ED 10:07
DX: R04.0 Epistaxis (principal); I48.91 Unspecified atrial fibrillation; I50.9 Heart failure, unspecified; I11.0 Hypertensive heart disease with heart failure; Z79.01 Long term (current) use of anticoagulants; Z86.61 Personal history of infections of the central nervous system; Z87.891 Personal history of nicotine dependence; Z90.79 Acquired absence of other genital organ(s)
CPT/HCPCS: 99283

== ENCOUNTER → 2017-09-15 | Outpatient (REF) | payer OTHER | LOC: M LAB REF 13:42 | DX: C44.319 Basal cell carcinoma of skin of other parts of face (principal) | CPT/HCPCS: 88305 ==

== ENCOUNTER 2017-10-23 20:02 | Emergency (ER) | payer OTHER ==
[2017-10-23] MEDS: DILUENT IV (21:15)
[2017-10-23] MEDS: PROTHROMBIN COMPLEX CONCEN IV (21:15)
[2017-10-23 21:38] LABS: BASO # 0.1 10^3/uL (0.0-0.2); BASO % 0.4 % (0.0-1.0); EOS # 0.4 10^3/uL (0.0-0.50); HEMATOCRIT 41.4 % (42.0-52.0); HEMOGLOBIN 13.5 g/dl (13.5-17.5); IMMATURE GRANULOCYTE % 0.3 % (0-3.0); LYMPH # 1.6 10^3/uL (1.5-4.5); LYMPH % 13.1 % (24.0-44.0); MEAN CORPUSCULAR HEMOGLOBIN 29.7 pg (27.0-33.0); MEAN CORPUSCULAR HGB CONC 32.6 g/dl (32.0-36.5); MEAN CORPUSCULAR VOLUME 91.2 fl (80.0-96.0); MONO % 8.5 % (0.0-5.0); NEUTROPHILS # 8.9 10^3/uL (1.8-7.7); NEUTROPHILS % 74.7 % (36.0-66.0); PLATELET COUNT, AUTOMATED 278 10^3/uL (150-450); RED BLOOD COUNT 4.54 10^6/uL (4.30-6.10); RED CELL DISTRIBUTION WIDTH 14.2 % (11.5-14.5)
[2017-10-23 21:47] LABS: ANION GAP 6 MEQ/L (8-16); BLOOD UREA NITROGEN 34 MG/DL (7-18); CALCIUM LEVEL 9.7 MG/DL (8.8-10.2); CARBON DIOXIDE LEVEL 31 MEQ/L (21-32); CHLORIDE LEVEL 106 MEQ/L (98-107); CREATININE FOR GFR 1.99 MG/DL (0.70-1.30); GLOMERULAR FILTRATION RATE 34.4 (>35); GLUCOSE, FASTING 96 MG/DL (70-100); POTASSIUM SERUM 3.9 MEQ/L (3.5-5.1); SODIUM LEVEL 143 MEQ/L (136-145)
[2017-10-23 21:48] LABS: INR 1.19; PROTHROMBIN TIME 15.3 SECONDS (12.1-14.4)
[2017-10-23 21:49] LABS: PARTIAL THROMBOPLASTIN TIME 33.7 SECONDS (25.4-37.6)
[2017-10-23] MEDS: niCARdipine IV 40 MG in APPROPRIATE DILUENT 1 EA IV ×2 (22:15→23:29)
== END 2017-10-23 23:38 | disposition short-term general hospital (02) ==
LOC: M ED 20:02
DX: I62.01 Nontraumatic acute subdural hemorrhage (principal); M99.06 Segmental and somatic dysfunction of lower extremity; M99.07 Segmental and somatic dysfunction of upper extremity; I48.91 Unspecified atrial fibrillation; I10 Essential (primary) hypertension; K21.9 Gastro-esophageal reflux disease without esophagitis; Z86.73 Personal history of transient ischemic attack (TIA), and cerebral infarction without residual deficits; Z88.8 Allergy status to other drugs, medicaments and biological substances; Z79.899 Other long term (current) drug therapy; Z79.01 Long term (current) use of anticoagulants
CPT/HCPCS: C9132

== ENCOUNTER → 2017-12-22 | Outpatient (REF) | payer OTHER ==
[2017-12-22 19:39] LABS: FOLATE 18.7 NG/ML
== END ==
LOC: M LAB REF 17:58
DX: G60.9 Hereditary and idiopathic neuropathy, unspecified (principal)
CPT/HCPCS: 82746

== ENCOUNTER 2020-06-19 14:51 | Inpatient (IN) | payer MEDICARE, OTHER ==
[~2020-06-19] VITALS: Ht 177.8 cm; Wt 93.8 kg
[~2020-06-19 14:51] MED LIST changes: -AMLO10TA2 PO; +AMLO1TAB25 PO; -ASPI81TA85 PO; +ASPI81TA86 PO; +EPLE25TA; +LEVO1SOL6; +LEVO50TA5; +METO1TAB63 PO; -METO25TAB PO; +METO50TA7; +OXCA150T21 PO; -QUIN1TAB15 PO; +QUIN1TAB4 PO; +TRAZ-252 PO; -TRAZ50TA11 PO; +ZANT150T40
[2020-06-19] MEDS ORDERED: AZIT-12 PO (15:30)
[2020-06-19 15:32] LABS: BASO # 0.1 10^3/uL (0.0-0.2); BASO % 0.5 % (0.0-1.0); EOS % 0.1 % (0.0-3.0); HEMATOCRIT 44.2 % (42.0-52.0); HEMOGLOBIN 13.9 g/dl (13.5-17.5); LYMPH # 1.2 10^3/uL (1.5-5.0); LYMPH % 8.8 % (24.0-44.0); MEAN CORPUSCULAR HEMOGLOBIN 31.1 pg (27.0-33.0); MEAN CORPUSCULAR HGB CONC 31.4 g/dl (32.0-36.5); MEAN CORPUSCULAR VOLUME 98.9 fl (80.0-96.0); MONO # 1.1 10^3/uL (0.0-0.8); MONO % 8.1 % (2.0-8.0); NEUTROPHILS # 11.3 10^3/uL (1.5-8.5); NEUTROPHILS % 81.9 % (36.0-66.0); PLATELET COUNT, AUTOMATED 283 10^3/uL (150-450); RED BLOOD COUNT 4.47 10^6/uL (4.30-6.10); WHITE BLOOD COUNT 13.9 10^3/uL (4.0-10.0)
[2020-06-19 16:07] LABS: ALBUMIN 3.9 GM/DL (3.2-5.2); BILIRUBIN,DIRECT 0.4 MG/DL (0.0-0.2); BILIRUBIN,TOTAL 0.9 MG/DL (0.2-1.0); CK-MB VALUE MASS 4.6 NG/ML (<3.6); CREATININE FOR GFR 2.66 MG/DL (0.70-1.30); GLOMERULAR FILTRATION RATE 24.5 (>35); MB/CK RELATIVE INDEX 5.54 (< OR =4); POTASSIUM SERUM 5.3 MEQ/L (3.5-5.1); THYROID STIMULATING HORMONE 3.92 uIU/ML (0.358-3.740); TOTAL PROTEIN 7.3 GM/DL (6.4-8.2); TROPONIN I 0.06 NG/ML (< 0.10)
--- NOTE | 2020-06-19 16:27 | REP ---
INDICATION: shortness of breath/hypoxia. COMPARISON: 09/10/2017. TECHNIQUE: SINGLE PORTABLE AP VIEW OF THE CHEST WAS PERFORMED. FINDINGS: There is aiyn-[id number]-vyqtqlid cardiomegaly. There is calcification and tortuosity of the thoracic aorta. The mediastinal silhouette is otherwise unremarkable. There is mild elevation of the right hemidiaphragm which is chronic in nature. No acute infiltrate is seen. IMPRESSION: NO ACUTE PULMONARY DISEASE.[id number] cardiomegaly. <Electronically signed by Chris Juarez > 06/19/20 [id number]
[2020-06-19 17:23] LABS: RSV AMPLIFICATION NEGATIVE (NEGATIVE)
[2020-06-19] MEDS ORDERED: FUROSEMIDE 100MG/10ML VIAL (J1940) IV ONE (18:35)
--- NOTE | 2020-06-19 19:14 | REPVR ---
PROCEDURE INFORMATION: Exam: CT Chest Without Contrast; Diagnostic Exam date and time: 06/19/2020 6:10 PM Age: 84 years old Clinical indication: Shortness of breath; Additional info: Sob/hypoxia TECHNIQUE: Imaging protocol: Diagnostic computed tomography of the chest without contrast. 3D rendering (Not supervised by radiologist): MIP and/or 3D reconstructed images were created by the technologist. Radiation optimization: All CT scans at this facility use at least one of these dose optimization techniques: automated exposure control; mA and/or kV adjustment per patient size (includes targeted exams where dose is matched to clinical indication); or iterative reconstruction. COMPARISON: [place] PORTABLE CHEST X-RAY 06/19/2020 4:16 PM FINDINGS: Lungs: Patchy areas of dependent interstitial pulmonary edema is seen in both lung bases with a tiny right pleural effusion present. A small pulmonary bulla is seen in the posterior lingular lobe. Heart: The heart size is borderline enlarged. Normal pulmonary vasculature. Moderate coronary artery calcification is present. Aorta: No CT evidence of thoracic aortic aneurysm or acute intramural thoracic aortic hematoma. Lymph nodes: Unremarkable. No enlarged lymph nodes. Liver: A small 1.6 cm diameter hypodense mass is present in the left lobe of the liver on image 91 of series 202. This finding has sharp margins and homogeneous low internal attenuation of 7 Hounsfield units. A short segment of large bowel is interposed between the anterior right lobe of the liver and the anterior right hemidiaphragm. 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 Bones/joints: Mild chronic degenerative anterior vertebral body endplate osteophytic disease is seen in the mid to lower thoracic spine. Soft tissues: Unremarkable. IMPRESSION: 1. The heart size is borderline enlarged. Normal pulmonary vasculature. Moderate coronary artery calcification is present. 2. No CT evidence of thoracic aortic aneurysm or acute intramural thoracic aortic hematoma. 3. Patchy areas of dependent interstitial pulmonary edema is seen in both lung bases with a tiny right pleural effusion present. A small pulmonary bulla is seen in the posterior lingular lobe. 4. Mild chronic degenerative anterior vertebral body endplate osteophytic disease is seen in the mid to lower thoracic spine. 5. A small 1.6 cm diameter hypodense mass is present in the left lobe of the liver on image 91 of series 202. This finding has sharp margins and homogeneous low internal attenuation of 7 Hounsfield units. These are benign features and no further follow-up is recommended. Reference: Management of Incidental Liver Lesions on CT: A White Paper of the ACR Incidental Findings Committee. Ebenezer Lamb MD, et al. Journal of the [place] [employer], Jan 2017, Volume 14, Issue 11, 2479-5435. 6. A short segment of large bowel is interposed between the anterior right lobe of the liver and the anterior right hemidiaphragm. 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 Electronically signed by: Jeffery Nagel On 06/19/2020 19:14:25 PM
[2020-06-19] MEDS ORDERED: LEVO75TA4 PO (19:21)
[2020-06-19] MEDS ORDERED: EPLE50TA PO (19:21)
[2020-06-19] MEDS ORDERED: METO1TAB87 PO (19:21)
[2020-06-19] MEDS ORDERED: TORS20TA2 PO (19:21)
[2020-06-19] MEDS ORDERED: PRAV20TA2 PO (19:21)
--- NOTE | 2020-06-19 19:31 | REPVR ---
PROCEDURE INFORMATION: Exam: CT Head Without Contrast Exam date and time: 06/19/2020 6:48 PM Age: 84 years old Clinical indication: Altered mental status/memory loss; Additional info: Altered mental, history of subdural TECHNIQUE: Imaging protocol: Computed tomography of the head without contrast. Radiation optimization: All CT scans at this facility use at least one of these dose optimization techniques: automated exposure control; mA and/or kV adjustment per patient size (includes targeted exams where dose is matched to clinical indication); or iterative reconstruction. COMPARISON: CT Head without contrast 10/23/2017 8:23 PM FINDINGS: Brain: The brain demonstrates diffuse volume loss. There is marked white matter hypodensity most consistent with chronic small vessel ischemic change. No visible evolving territorial infarct. No hemorrhage. 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 Interval evacuation of a previously demonstrated large isodense right subdural hematoma. At this time, no extra-axial fluid collections. Cerebral ventricles: The ventricles are enlarged in keeping with volume loss. Bones/joints: No acute calvarial fracture seen. There is an old right parietal calvarial ruben hole. Paranasal sinuses: Visualized sinuses are unremarkable. No fluid levels. Mastoid air cells: Visualized mastoid air cells are well aerated. Soft tissues: Right postauricular skin dk. IMPRESSION: 1. No acute intracranial abnormality seen. 2. Prominent degree of cerebral volume loss and deep white matter gliosis. Electronically signed by: Samara Wagoner On 06/19/2020 19:31:07 PM
[2020-06-19] MEDS ORDERED: METOPROLOL 5 MG/5 ML VIAL IV STA (19:33)
[2020-06-19] MEDS ORDERED: MOM 30ML SUSPENSION UDC PO PRN (19:35)
[2020-06-19] MEDS ORDERED: ACETAMINOPHEN TAB 650MG DOSE (2X325MG) PO PRN (19:35)
[2020-06-19] MEDS ORDERED: MAALOX 30 ML SUSP *UDC PO PRN (19:35)
--- NOTE | 2020-06-19 19:40 | HPEPDOC ---
[facility] Medical History & Physical Date of Admission Jun 19, 2020 Date of Service: Jun 19, 2020 Primary Care Physician: Jr Mansfield Collins Attending Physician: AUDREY DELEON MD History and Physical TIME OF SERVICE: 850PM CHIEF COMPLAINT: sent by PCP HISTORY OF PRESENT ILLNESS: The history was obtained primarily from the patients ; the patient was a bit confused about the sequence of events that led him to come to the hospital and admitted to feeling confused. This 53 yr old M was sent to the ER by his PCP for evaluation of weakness and confusion. He has also been feeling short of breath, his chronic cough is worse, and he has BLE edema. He occasionally has a feeling of fullness in his chest which was not present at the time of my exam and according to his was also wheezing today. Based on his c/o, imaging findings and blood work he was given Lasix for possible acute CHF. 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 HOME MEDICATIONS: Please see below. PHYSICAL EXAMINATION: Vital Signs Date Time Temp Pulse Resp B/P (MAP) Pulse Ox O2 Delivery O2 Flow Rate FiO2 06/19/20 14:51 97.4 51 18 99 Room Air 06/19/20 15:30 2.0 GENERAL APPEARANCE: well nourished & developed / NAD HEENT: EOMI / NC in place CARDIOVASCULAR: bradycardic / NMRG / + BLE edema LUNGS: not using accessory muscles/ coughing occasionally / wheezing ABDOMEN: obese/ soft & NT w palpation MUSCULOSKELETAL: LE x 4 extremities INTEGUMENT: not cyanotic / not flushed NEUROLOGICAL: speech not dysarthric PSYCHIATRIC: alert / able to answer simple questions but provides a lot of tangential answers LABORATORY DATA: 06/19/20 15:09 Immature Granulocyte % (Auto) 0.6, Neutrophils (%) (Auto) 81.9H, Lymphocytes (%) (Auto) 8.8L, Monocytes (%) (Auto) 8.1H, Eosinophils (%) (Auto) 0.1, Basophils (%) (Auto) 0.5, Neutrophils # (Auto) 11.3H, Lymphocytes # (Auto) 1.2L, Monocytes # (Auto) 1.1H, Eosinophils # (Auto) 0.0, Basophils # (Auto) 0.1, Nucleated Red Blood Cells % (auto) 0.4H, Anion Gap 9, Glomerular Filtration Rate 24.5L, Calcium Level 10.0, Total Bilirubin 0.9, Direct Bilirubin 0.4H, Aspartate Amino Transf (AST/SGOT) 32, Alanine Aminotransferase (ALT/SGPT) 29, Alkaline Phosphatase 107, Total Creatine Kinase 83, Creatine Kinase MB 4.6H, Creatine Kinase MB Relative Index 5.54H, Troponin I 0.06, EA-Ewu-Q-Type Natriuretic Peptide 21647M, Total Protein 7.3, Albumin 3.9, Albumin/Globulin Ratio 1.1, Thyroid Stimulating Hormone (TSH) 3.920H 06/19/20 15:27: POC Glucose (Misc Panel) 109H, POC Sodium (Misc Panel) 139, POC Potassium (Misc Panel) 5.4H, POC Chloride (Misc Panel) 105, POC Total CO2 (Misc Panel) 25.0, POC Blood Urea Nitrogen (Misc Panel 62H, POC Ionized Calcium (Misc Panel) 5.0, POC Creatinine (Misc Panel) 2.6H, POC Hematocrit (Misc Panel) 45.0 06/19/20 16:30: Urine Color YELLOW, Urine Appearance CLEAR, Urine pH 5.0, Urine Specific [place] 1.009, Urine Protein NEGATIVE, Urine Glucose (UA) NEGATIVE, Urine Ketones NEGATIVE, Urine Blood 1+H, Urine Nitrite NEGATIVE, Urine Bilirubin NEGATIVE, Urine Urobilinogen 0.2, Urine Leukocyte Esterase NEGATIVE, Urine WBC (Auto) 0, Urine RBC (Auto) 1, Urine Hyaline Casts (Auto) 0, Urine Bacteria (Auto) NEGATIVE, Urine Squamous Epithelial Cells 0, Urine Mucus (Auto) SMALL, Urine Sperm (Auto) , IMAGING: Chest xray IMPRESSION: NO ACUTE PULMONARY DISEASE.[id number] cardiomegaly. CT chest IMPRESSION: 1. The heart size is borderline enlarged. Normal pulmonary vasculature. Moderate coronary artery calcification is present. 2. No CT evidence of thoracic aortic aneurysm or acute intramural thoracic aortic hematoma. 3. Patchy areas of dependent interstitial pulmonary edema is seen in both lung bases with a tiny right pleural effusion present. A small pulmonary bulla is seen in the posterior lingular lobe. 4. Mild chronic degenerative anterior vertebral body endplate osteophytic disease is seen in the mid to lower thoracic spine. 5. A small 1.6 cm diameter hypodense mass is present in the left lobe of the liver on image 91 of series 202. This finding has sharp margins and homogeneous low internal attenuation of 7 Hounsfield units. These are benign features and no further follow-up is recommended. Reference: Management of Incidental Liver Lesions on CT: A White Paper of the ACR Incidental Findings Committee. Ebenezer Lamb MD, et al. Journal of the [employer] [employer], Jan 2017, Volume 14, Issue 11, 9980-1967. 6. A short segment of large bowel is interposed between the anterior right lobe of the liver and the anterior right hemidiaphragm. 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 CT head IMPRESSION: 1. No acute intracranial abnormality seen. 2. Prominent degree of cerebral volume loss and deep white matter gliosis. MICROBIOLOGY: Coronavirus (COVID-19)(PCR) NEGATIVE, Influenza Type A (RT-PCR) NEGATIVE, Influenza Type B (RT-PCR) NEGATIVE, Respiratory Syncytial Virus (PCR) NEGATIVE ASSESSMENT: is an 84 yr old w a hx of HTN, A fib, BPH, encephalitis, BCC, SCC, chronic right insular and temporal lobe CVAs, hx of subdural hematoma, obesity and TY who was sent for evaluation of confusion and weakness and also c/o dyspnea, edema, cough and wheezing; he will be admitted for evaluation of encephalopathy, HTN urgency, possible acute unspecified type of CHF & TRISTA. PLAN: 1. Encephalopathy Cause TBD Differential includes post-ictal state in setting of previous CVAs, hyperammonemia, hypertensive encephalopathy, and or new subacute CVA, Plan: admit to PCU / frequent neurochecks / f/u ammonia & prolactin / day time team may consider MRI/MRA of the brain in the morning if the work-up is neg and his confusion has not resolved and or LP to r/o encephalitis if initial work up is unrevealing 2 HTN urgency Plan: telemetry / IV metoprolol / c/w metoprolol tartrate, K sparing diuretic, IV Lasix in place of torsemide and add amlodipine 2.5mg daily 3. Fluid overload 2/2 unspecified CHF vs flash pulmonary edema in the setting of HTN urgency Plan: f/u Is and Os, daily weights, restrict salt to 2g/ c/w Lasix / f/u Echo/ trend troponins 4. TRISTA Possibly 2/2 congestion / fluid overload vs or due to hypertensive emergency Plan: f/u U[place]tes for FEUrea, renal US & BMP 5. Hyperkalemia Likely due to TRISTA No peaked T waves on EKG Plan: calcium gluconate & repeat BMP tonight 6. Leuckocytosis Cause TBD Plan: f/u blood cx / day time team to consider LP if he develops SIRS and encephalitis appears to be a possible cause 7. Chest fullness CT showed large bowel is interposed between the anterior right lobe of the liver and the anterior right hemidiaphragm. 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 in the right MCA territory Plan: requested records from [facility] / c/w statin 9. Longstanding persistent A fib EKG showed afib w a mai of 58 Plan: c/w metoprolol tartrate & Eliquis / requested records from [facility] 10. Class 1 obesity Complicates care Plan: f/u A1C DVT px w SCDs Dispo: home after at least 2 midnights stay Daughter Purvi Muse [phone] is the person to contact. LATE ENTRY #Non-cirrhotic hyperammonemia Likely 2/2 oxcarbezepine use Suspect he is on this for a seizure disorder possibly after the subdural hematoma Plan: start lactulose / f/u records from [facility] Home Medications Scheduled Apixaban (Eliquis) 2.5 Mg Tab, 2.5 MG PO BID Azithromycin (Azithromycin) 250 Mg Tablet, 250 MG PO DAILY HAS 1 DAY LEFT OF 4 DAY COURSE Eplerenone (Eplerenone) 50 Mg Tablet, 50 MG PO DAILY Levothyroxine Sodium (Levothyroxine Sodium) 75 Mcg Tablet, 75 MCG PO DAILY Metoprolol Tartrate (Metoprolol Tartrate) 25 Mg Tablet, 25 MG PO TID Oxcarbazepine (Oxcarbazepine) 150 Mg Tab, 300 MG PO BID Potassium Chloride (K-Tab ER) 20 Meq Tab, 20 MEQ PO BID Pravastatin Sodium (Pravastatin Sodium) 20 Mg Tablet, 20 MG PO DAILY Torsemide (Torsemide) 20 Mg Tablet, 20 MG PO BID Trazodone HCl (Trazodone HCl) 50 Mg Tab, 25 MG PO QHS Allergies Coded Allergies: spironolactone (Unverified Allergy, Unknown, 06/19/20) A-FIB/CHADSVASC A-FIB History Current/History of A-Fib/PAF?: No Current PO Anticoag Therapy: No AUDREY DELEON MD Jun 19, 2020 19:40
[2020-06-19] MEDS ORDERED: CALCIUM GLUCONATE 1,000 MG in D5W MINI-BAG PLUS 100 ML IV ONE (19:45)
[2020-06-19 20:05] LABS: PROLACTIN 17.9 NG/ML (2.1-17.7)
--- NOTE | 2020-06-19 20:25 | ECGEPIP ---
[facility] - ED Test Date: 2020-06-19 Pat Name: KRISTY SANCHEZ Department: Room: - Gender: Male [employer]: PAIGE : 1935 Requested By: SHELLEY Pete Order Number: [id number] Reading MD: Rigoberto Lane Measurements Intervals [place] Rate: 58 P: RI: QRS: -30 QRSD: 130 T: -25 QT: 468 QTc: 459 Interpretive Statements Atrial fibrillation with slow ventricular response Left axis deviation Right bundle branch block, new compared to 05/29/16 Minimal voltage criteria for LVH, may be normal variant ( R in aVL ) Electronically Signed on 06-19-2020 20:25:[address]
[2020-06-19 21:30] VITALS: BP 207/86
[2020-06-19 21:50] LABS: CALCIUM LEVEL 9.3 MG/DL (8.8-10.2); CREATININE FOR GFR 2.79 MG/DL (0.70-1.30); GLOMERULAR FILTRATION RATE 23.2 (>35); POTASSIUM SERUM 4.8 MEQ/L (3.5-5.1); TROPONIN I 0.05 NG/ML (< 0.10)
[2020-06-19] MEDS: POTASSIUM CHLORIDE 10 MEQ SR TABLET PO SCH (23:04)
[2020-06-19] MEDS: APIXABAN 2.5 MG TAB (ELIQUIS) PO SCH (23:05)
[2020-06-19] MEDS: METOPROLOL TART 25 MG TABLET PO SCH (23:05)
[2020-06-19 23:30] VITALS: O2SAT 93
[2020-06-19] MEDS: OXcarbazepine 150 MG TAB PO SCH (23:38)
[2020-06-19] MEDS: traZODone 25MG PER 1/2 TABLET PO SCH (23:38)
[2020-06-19] MEDS: LACTULOSE 20 GM/30 ML SYRUP UD PO SCH (23:38)
[2020-06-20] VITALS (11 sets, daily range): BP systolic 136–192; BP diastolic 70–100; O2SAT 91–98
[2020-06-20] MEDS: FUROSEMIDE 40MG/4ML VIAL (J1940) IV SCH ×5 (00:27→20:59)
[2020-06-20 03:18] LABS: MEAN CORPUSCULAR HEMOGLOBIN 31.3 pg (27.0-33.0); MEAN CORPUSCULAR HGB CONC 31.7 g/dl (32.0-36.5); MEAN CORPUSCULAR VOLUME 98.6 fl (80.0-96.0); PLATELET COUNT, AUTOMATED 267 10^3/uL (150-450); RED BLOOD COUNT 4.16 10^6/uL (4.30-6.10); WHITE BLOOD COUNT 14.9 10^3/uL (4.0-10.0)
[2020-06-20 03:34] LABS: CALCIUM LEVEL 9.8 MG/DL (8.8-10.2); CREATININE FOR GFR 2.7 MG/DL (0.70-1.30); GLOMERULAR FILTRATION RATE 24.1 (>35); POTASSIUM SERUM 4.6 MEQ/L (3.5-5.1)
[2020-06-20] MEDS ORDERED: LORazepam 2 MG/ML VIAL IV PRN (04:00)
[2020-06-20 04:04] LABS: HEMOGLOBIN A1c 5.6 %
[2020-06-20] MEDS: LEVOTHYROXINE 75MCG TABLET (0.075MG) PO SCH (05:31)
--- NOTE | 2020-06-20 10:18 | REP ---
INDICATION: Hypertension. R/O Renal Artery Stenosis / john. COMPARISON: None. TECHNIQUE: Urinary tract sonography with renal artery Doppler assessment. FINDINGS: Scanning of the level of the urinary bladder demonstrates enlargement of the prostate, 5.6 x 4.8 x 5.0 cm, 70 mL volume. Emptying ureteral jets are observed bilaterally in the urinary bladder.. Renal cortical echogenicity pattern is normal bilaterally and contours are smooth. There are bilateral renal cortical cysts. There are 2 cysts in the upper pole the right kidney measuring 2.2 and 0.9 cm in greatest diameter. There is a 2.7 cm cyst in the lower pole the right kidney. The left kidney contains a 3.2 cm cyst in its upper pole and a 0.6 cm cyst in its lower pole. No mass or hydronephrosis is seen on either side.. The right kidney measures 10.5 x 4.4 x 4.7 cm. Left renal dimensions are 11.1 x 5.7 x 4.7 cm. Renal Doppler ultrasound: Exam quality is inhibited by patient body habitus and bowel gas as well as respiratory motion. Neither proximal most renal artery could be visualized. Peak systolic flow velocity in the abdominal aorta at the level of the main renal arteries is 103 centimeters/second. Peak systolic flow velocity in the right mid renal artery is 69 centimeters/second and that in the left renal artery is 95 centimeters/second. These values are normal. Renal to aortic flow velocity ratios are therefore normal less than 1 bilaterally. Resistive indices and acceleration times are measured in the intralobar arteries of the upper, mid, and lower pole of each kidney. These values are normal bilaterally. IMPRESSION: Bilateral renal cortical cysts. Prominent prostate gland. No Doppler evidence to suggest renal artery stenosis.. <Electronically signed by Jass Joseph > 06/20/20 [id number]
[2020-06-20] MEDS: SPIRONOLACTONE 50 MG TAB PO SCH (10:25)
[2020-06-20] MEDS: APIXABAN 2.5 MG TAB (ELIQUIS) PO SCH ×2 (10:25→21:03)
[2020-06-20] MEDS: PRAVASTATIN 20 MG TAB PO SCH (10:25)
[2020-06-20] MEDS: LACTULOSE 20 GM/30 ML SYRUP UD PO SCH ×2 (10:25→20:59)
[2020-06-20] MEDS: METOPROLOL TART 25 MG TABLET PO SCH ×3 (10:26→21:01)
[2020-06-20] MEDS: AZITHROMYCIN 250MG TABLET PO SCH (10:26)
[2020-06-20] MEDS: OXcarbazepine 150 MG TAB PO SCH ×2 (10:27→21:04)
[2020-06-20] MEDS: POTASSIUM CHLORIDE 10 MEQ SR TABLET PO SCH ×2 (10:27→21:01)
[2020-06-20 10:47] LABS: TROPONIN I 0.05 NG/ML (< 0.10)
--- NOTE | 2020-06-20 11:41 | IPNPDOC ---
Text Note Date of Service The patient was seen on 06/20/20. NOTE Subjective: Patient is an 84 year old male with a PMHx of A. 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 Patient is reported that he's been feeling short of breath with a chronic cough and lower extremity swelling for a while. Patient was admitted to the hospitalist service for further evaluation and treatment. Patient was seen and examined at the bedside. Currently patient is fully or iented to person / place / time. Denies any CP or palpitations. Reports shortness of breath, worse with exertion. Denies any N/V, abdominal pain, C/D or urinary discomfort. Objective: Vitals (See below) General: Sitting up at the edge of the bed, eating breakfast, appears comfortable, AAOx3 HEENT: NC, AT CVS: +S1S2 Lungs: Fair air entry b/l, no appreciable wheezing / rhonchi, faint crackles Abdomen: Soft, non-distended, non-tender Extremities: 1+ pitting edema bilaterally, - Calf tenderness Imaging: Chest xray 06/19: NO ACUTE PULMONARY DISEASE Sxqg-no-xmftskyo cardiomegaly. CT chest 06/19: 1. The heart size is borderline enlarged. Normal pulmonary vasculature. Moderate coronary artery calcification is present. 2. No CT evidence of thoracic aortic aneurysm or acute intramural thoracic aortic hematoma. 3. Patchy areas of dependent interstitial pulmonary edema is seen in both lung bases with a tiny right pleural effusion present. A small pulmonary bulla is seen in the posterior lingular lobe. 4. Mild chronic degenerative anterior vertebral body endplate osteophytic disease is seen in the mid to lower thoracic spine. 5. A small 1.6 cm diameter hypodense mass is present in the left lobe of the liver on image 91 of series 202. This finding has sharp margins and homogeneous low internal attenuation of 7 Hounsfield units. These are benign features and no further follow-up is recommended. 6. A short segment of large bowel is interposed between the anterior right lobe of the liver and the anterior right hemidiaphragm. 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 CT head 06/19: 1. No acute intracranial abnormality seen. 2. Prominent degree of cerebral volume loss and deep white matter gliosis. Renal US 06/20: Bilateral renal cortical cysts. Prominent prostate gland. No Doppler evidence to suggest renal artery stenosis. 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) - No focal neurologic deficits noted - Patient unable to get MRI given his dk on his ear - Will repeat CT within 24 hours - Will continue to monitor HTN urgency - BP better controlled now - c/w Furosemide / Spironolactone / Metoprolol - Will increase dose of Amlodipine Shortness of breath - possibly 2/2 Decompensated Diastolic CHF - Physical with faint crackles / LE edema - BNP elevated - Imaging consistent with fluid overload - ECHO pending (with bubble study) - Strict ins/outs, Daily weights; will add fluid restrictions - c/w Furosemide / Spironolactone Hx of NSTEMI - Catheterization 05/2016 showing insignificant coronary artery disease - Catheterization 02/06/2020 showing insignificant coronary artery disease - NM Myocardial perfusion SPECT study: There is a small fixed defect in the lateral wall, which may represent prior infarct, with a small area of adjacent reversibility in the mid lateral wall which may represent associated brandyn- infarct ischemia - Patient has been advised by Cardiology, Dr. Magana to have a bubble study completed - ECHO completed today; will add bubble study - As per Cardiology, Dr. Magana had mentioned that patient may ultimately require a right heart catheterization TRISTA on CKD3 - possibly 2/2 cardiorenal syndrome - BUN / Cr baseline of 24-38 / 1.6-2.0 - from [facility] on 03/2020 - Renal US noted above - Will avoid nephrotoxic medications - c/w Diuresis s/p Hyperkalemia Leucocytosis - Patient remains afebrile - UA negative - COVID19 PCR negative; will check full respiratory panel - Will check blood cultures / Procalcitonin - Will continue to monitor - Will discuss with ID given his prior history of herpes encephalitis - Was recently started on Azithromycin (Will complete 5 day course today) 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 in the right MCA territory - c/w Pravastatin Chronic Atrial fibrillation - Rate remains controlled - c/w rate control with metoprolol tartrate; will reduce dose - c/w full anticoagulation with Eliquis Hx of Seizures (01/2017) - Patient has not had any recent seizures based on his and his 's accord - Most recent seizure was >1 year ago - Questionable significance of slightly elevated prolactin level - EEG completed today - c/w Oxcarbazepine Hypothyroidism - c/w Levothyroxine Class 1 obesity - Complicating medical care DVT prophylaxis - c/w full anticoagulation with Eliquis Disposition: - Awaiting clinical improvement VS,Marilyn I+O VS, Marilyn I+O Laboratory Tests 06/19/20 15:09 06/19/20 21:05 06/20/20 03:00 Vital Signs Date Time Temp Pulse Resp B/P (MAP) Pulse Ox O2 Delivery O2 Flow Rate FiO2 06/20/20 10:26 80 180/80 06/20/20 08:00 97.1 20 95 Room Air 06/19/20 20:58 2.0 I&O- Last 24 Hours up to 6 AM 06/20/20 06:00 Intake Total 750 ml Output Total 1050 ml Balance -300 ml JERROD KLEIN MD Jun 20, 2020 11:41
[2020-06-20] MEDS: amLODIPine 5 MG TAB PO SCH ×2 (13:38→21:02)
[2020-06-20 18:19] LABS: C REACTIVE PROTEIN QUANTITATIV 2.24 MG/DL (0.00-0.30); CALCIUM LEVEL 9.7 MG/DL (8.8-10.2); CREATININE FOR GFR 2.66 MG/DL (0.70-1.30); GLOMERULAR FILTRATION RATE 24.5 (>35); MAGNESIUM LEVEL 2.5 MG/DL (1.8-2.4); POTASSIUM SERUM 3.9 MEQ/L (3.5-5.1)
[2020-06-20] MEDS: traZODone 25MG PER 1/2 TABLET PO SCH (21:03)
[2020-06-21 00:05] VITALS: BP 174/80
[2020-06-21] MEDS: FUROSEMIDE 40MG/4ML VIAL (J1940) IV SCH ×6 (01:04→20:21)
[2020-06-21 04:00] VITALS: BP 146/72
[2020-06-21] MEDS: LEVOTHYROXINE 75MCG TABLET (0.075MG) PO SCH (05:17)
[2020-06-21 06:16] LABS: C REACTIVE PROTEIN QUANTITATIV 2.23 MG/DL (0.00-0.30)
[2020-06-21 07:18] LABS: BASO # 0.1 10^3/uL (0.0-0.2); BASO % 0.6 % (0.0-1.0); EOS # 0.3 10^3/uL (0.0-0.5); EOS % 2.3 % (0.0-3.0); HEMATOCRIT 42.7 % (42.0-52.0); HEMOGLOBIN 13.4 g/dl (13.5-17.5); LYMPH # 1.4 10^3/uL (1.5-5.0); LYMPH % 11.2 % (24.0-44.0); MEAN CORPUSCULAR HEMOGLOBIN 30.8 pg (27.0-33.0); MEAN CORPUSCULAR HGB CONC 31.4 g/dl (32.0-36.5); MEAN CORPUSCULAR VOLUME 98.2 fl (80.0-96.0); NEUTROPHILS # 9.6 10^3/uL (1.5-8.5); NEUTROPHILS % 76.9 % (36.0-66.0); PLATELET COUNT, AUTOMATED 253 10^3/uL (150-450); RED BLOOD COUNT 4.35 10^6/uL (4.30-6.10); WHITE BLOOD COUNT 12.5 10^3/uL (4.0-10.0)
[2020-06-21 07:54] LABS: ALBUMIN 3.7 GM/DL (3.2-5.2); BILIRUBIN,TOTAL 0.7 MG/DL (0.2-1.0); CALCIUM LEVEL 9.7 MG/DL (8.8-10.2); CREATININE FOR GFR 2.19 MG/DL (0.70-1.30); GLOMERULAR FILTRATION RATE 30.7 (>35); MAGNESIUM LEVEL 2.5 MG/DL (1.8-2.4); POTASSIUM SERUM 3.3 MEQ/L (3.5-5.1); TOTAL PROTEIN 6.8 GM/DL (6.4-8.2)
[2020-06-21 08:00] VITALS: BP 138/83
[2020-06-21] MEDS ORDERED: POTASSIUM CHLORIDE 10 MEQ SR TABLET PO ONE (08:15)
[2020-06-21] MEDS: LACTULOSE 20 GM/30 ML SYRUP UD PO SCH (09:00)
--- NOTE | 2020-06-21 09:58 | REPVR ---
PROCEDURE INFORMATION: Exam: MR Head Without Contrast Exam date and time: 06/21/2020 9:31 AM Age: 84 years old Clinical indication: Altered mental status/memory loss; Confusion or disorientation TECHNIQUE: Imaging protocol: MR of the head without contrast. COMPARISON: CT Head without contrast 06/19/2020 6:48 PM FINDINGS: Image quality is degraded by motion. Brain: There is no extra-axial collection or intra-axial mass. Moderate diffuse volume loss is within the range of normal for patient age. There is T2/FLAIR hyperintensity within the periventricular and subcortical white matter and substance of the justino, nonspecific but typically small-vessel ischemia in this age group. There is right temporal encephalomalacia. There is no diffusion restriction. Cerebral ventricles: Prominence of the ventricular system is commensurate with volume loss. Vasculature: There is a 12 x 9 mm lobulated hypointensity along the right parasellar region, potentially aneurysm. Bones/joints: Unremarkable. Paranasal sinuses: There is mild left maxillary sinus mucosal thickening. Mastoid air cells: Normal as visualized. No mastoid effusion. Orbital cavity: Unremarkable. Soft tissues: Unremarkable. IMPRESSION: No acute intracranial abnormality. Chronic changes. 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 CTA may be of benefit as indicated. Electronically signed by: Angy Nelson On 06/21/2020 09:58:35 AM
[2020-06-21] MEDS: POTASSIUM CHLORIDE 10 MEQ SR TABLET PO SCH ×2 (10:21→20:23)
[2020-06-21] MEDS: APIXABAN 2.5 MG TAB (ELIQUIS) PO SCH ×2 (10:21→20:22)
[2020-06-21] MEDS: PRAVASTATIN 20 MG TAB PO SCH (10:22)
[2020-06-21] MEDS: SPIRONOLACTONE 50 MG TAB PO SCH (10:22)
[2020-06-21] MEDS: METOPROLOL TART 25 MG TABLET PO SCH ×2 (10:22→20:20)
[2020-06-21] MEDS: AZITHROMYCIN 250MG TABLET PO SCH (10:23)
[2020-06-21] MEDS: OXcarbazepine 150 MG TAB PO SCH ×2 (10:23→20:23)
[2020-06-21] MEDS: amLODIPine 5 MG TAB PO SCH ×2 (10:23→20:22)
--- NOTE | 2020-06-21 10:25 | IPNPDOC ---
Text Note Date of Service The patient was seen on 06/21/20. NOTE Subjective: Patient is an 84 year old male with a PMHx of A. 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 Patient is reported that he's been feeling short of breath with a chronic cough and lower extremity swelling for a while. Patient was admitted to the hospitalist service for further evaluation and treatment. Patient was seen and examined at the bedside. Patient was seen sitting up in chair, appears to be comfortable, oriented to person, place, time and president. Reports his breathing is doing better. Denies any nausea, vomiting, chest pain, palpitations. Denies any abdominal pain, diarrhea, or discomfort with urination. Objective: Vitals (See below) General: Patient is sitting up in chair eating breakfast, appears to be comfortable without any acute distress, is oriented to person, place and time HEENT: Bilateral ears with scabs noted; dk posterior to right ear were removed this morning CVS: +S1S2 Lungs: Faint crackles are appreciated at bases. Air entry is fair bilaterally Abdomen: Abdomen remains soft without any appreciated distention or tenderness Extremities: Lower extremities still reveal 1+ pitting edema Imaging: Chest xray 06/19: NO ACUTE PULMONARY DISEASE Lcqd-uq-mahwnvlb cardiomegaly. CT chest 06/19: 1. The heart size is borderline enlarged. Normal pulmonary vasculature. Moderate coronary artery calcification is present. 2. No CT evidence of thoracic aortic aneurysm or acute intramural thoracic aortic hematoma. 3. Patchy areas of dependent interstitial pulmonary edema is seen in both lung bases with a tiny right pleural effusion present. A small pulmonary bulla is seen in the posterior lingular lobe. 4. Mild chronic degenerative anterior vertebral body endplate osteophytic disease is seen in the mid to lower thoracic spine. 5. A small 1.6 cm diameter hypodense mass is present in the left lobe of the liver on image 91 of series 202. This finding has sharp margins and homogeneous low internal attenuation of 7 Hounsfield units. These are benign features and no further follow-up is recommended. 6. A short segment of large bowel is interposed between the anterior right lobe of the liver and the anterior right hemidiaphragm. 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 CT head 06/19: 1. No acute intracranial abnormality seen. 2. Prominent degree of cerebral volume loss and deep white matter gliosis. Renal US 06/20: Bilateral renal cortical cysts. Prominent prostate gland. No Doppler evidence to suggest renal artery stenosis. MRI Brain 06/21: No acute intracranial abnormality. Chronic changes. 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 CTA may be of benefit as indicated. 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) - Physical does not reveal any focal neurologic deficits - Imaging noted above including MRI findings HTN urgency - BP better controlled now - c/w Furosemide / Spironolactone / Metoprolol / Amlodipine Shortness of breath - likely 2/2 Decompensated Diastolic CHF - Physical still reveals evidence of fluid overload - BNP elevated - Imaging consistent with fluid overload - ECHO with bubble study complete; report pending - Strict ins/outs, Daily weights; c/w fluid restrictions - c/w Furosemide / Spironolactone 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 - Discussed findings with patient and daughter - Advised that given the size patient would benefit from correction - I will contact PCP to help establish neurosurgery consultation as an outpatient Hx of NSTEMI - Catheterization 05/2016 showing insignificant coronary artery disease - Catheterization 02/06/2020 showing insignificant coronary artery disease - NM Myocardial perfusion SPECT study: There is a small fixed defect in the lateral wall, which may represent prior infarct, with a small area of adjacent reversibility in the mid lateral wall which may represent associated brandyn- infarct ischemia - Patient has been advised by Cardiology, Dr. Magana to have a bubble study completed - ECHO with bubble study complete; report pending - As per Cardiology; Dr. Magana had mentioned that patient may ultimately require a right heart catheterization TRISTA on CKD3 - possibly 2/2 cardiorenal syndrome - Creatinine is improving with diuresis - BUN / Cr baseline of 24-38 / 1.6-2.0 - from [facility] on 03/2020 - Renal US noted above - Will avoid nephrotoxic medications - c/w Diuresis Hypernatremia - Will monitor on hold diuresis within 24 hours if required Hypokalemia - Will supplement Leucocytosis - Improving - Patient remains afebrile - UA negative - COVID19 PCR negative; Respiratory panel pending - Blood cultures 06/19: No growth at 24 hours - Procalcitonin negative - s/p Azithromycin (5 day course - for reported URTI) 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 in the right MCA territory - c/w Pravastatin Chronic Atrial fibrillation - Rate remains controlled - c/w rate control with metoprolol tartrate; will reduce dose - c/w full anticoagulation with Eliquis Hx of Seizures (01/2017) - Patient has not had any recent seizures based on his and his 's accord - Most recent seizure was >1 year ago - Questionable significance of slightly elevated prolactin level - Oxcarbazepine levels pending - EEG completed today; report pending - c/w Oxcarbazepine Hypothyroidism - c/w Levothyroxine Class 1 obesity - Complicating medical care DVT prophylaxis - c/w full anticoagulation with Eliquis Disposition: - Awaiting clinical improvement - Will order PT - Called and discussed case with the daughter; Purvi Muse [phone] VS,Marilyn, I+O VSMarilyn, I+O Laboratory Tests 06/21/20 05:35 06/21/20 05:40 Vital Signs Date Time Temp Pulse Resp B/P (MAP) Pulse Ox O2 Delivery O2 Flow Rate FiO2 06/21/20 08:00 96.5 98 19 138/83 (101) 95 Room Air 06/20/20 08:00 0.0 I&O- Last 24 Hours up to 6 AM 06/21/20 06:00 Intake Total 2690 ml Output Total 4140 ml Balance -1450 ml JERROD KLEIN MD Jun 21, 2020 10:25
[2020-06-21 16:00] VITALS: BP 143/70
[2020-06-21 20:00] VITALS: BP 185/73
[2020-06-21 20:20] VITALS: BP 137/63
[2020-06-21] MEDS: traZODone 25MG PER 1/2 TABLET PO SCH (20:21)
[2020-06-22] VITALS: BP 176/81
[2020-06-22] MEDS: FUROSEMIDE 40MG/4ML VIAL (J1940) IV SCH ×2 (00:38→04:57)
[2020-06-22 04:00] VITALS: BP 142/76
[2020-06-22] MEDS: LEVOTHYROXINE 75MCG TABLET (0.075MG) PO SCH (06:04)
[2020-06-22 06:20] LABS: BASO # 0.1 10^3/uL (0.0-0.2); BASO % 0.6 % (0.0-1.0); EOS # 0.4 10^3/uL (0.0-0.5); EOS % 3.2 % (0.0-3.0); HEMATOCRIT 43.5 % (42.0-52.0); HEMOGLOBIN 13.9 g/dl (13.5-17.5); LYMPH # 1.1 10^3/uL (1.5-5.0); LYMPH % 8.4 % (24.0-44.0); MEAN CORPUSCULAR HEMOGLOBIN 31.2 pg (27.0-33.0); MEAN CORPUSCULAR VOLUME 97.5 fl (80.0-96.0); MONO % 8.1 % (2.0-8.0); NEUTROPHILS % 79.1 % (36.0-66.0); PLATELET COUNT, AUTOMATED 260 10^3/uL (150-450); RED BLOOD COUNT 4.46 10^6/uL (4.30-6.10); WHITE BLOOD COUNT 12.7 10^3/uL (4.0-10.0)
[2020-06-22 07:01] LABS: ALBUMIN 3.6 GM/DL (3.2-5.2); BILIRUBIN,TOTAL 0.7 MG/DL (0.2-1.0); C REACTIVE PROTEIN QUANTITATIV 2.64 MG/DL (0.00-0.30); CALCIUM LEVEL 9.8 MG/DL (8.8-10.2); CREATININE FOR GFR 2.07 MG/DL (0.70-1.30); GLOMERULAR FILTRATION RATE 32.7 (>35); MAGNESIUM LEVEL 2.4 MG/DL (1.8-2.4); POTASSIUM SERUM 3.5 MEQ/L (3.5-5.1); TOTAL PROTEIN 6.7 GM/DL (6.4-8.2)
[2020-06-22 08:00] VITALS: BP 167/82
--- NOTE | 2020-06-22 09:14 | EEG ---
ELECTROENCEPHALOGRAM DATE: 06/21/2020 DIAGNOSIS: Altered mental status. EEG# [id number]. REFERRING PHYSICIAN: Verona Boo MD. HISTORY: Patient is an 84-year-old man who was admitted at [facility] due to altered mental status, history of stroke in the past, subdural hematoma in the past, confusion, and weakness. COMMENTS: He is currently taking Eliquis, levothyroxine, metoprolol, Trileptal, trazodone, Spironolactone, etc. TECHNICAL DESCRIPTION: This digital EEG was recorded by 21-scalp, ear, and two EKG electrodes and was reviewed in bipolar and referential montages following reformatting in 10-20 international electrode placement system. INTERPRETATION: Patient was noted to be in awake and drowsy states during this EEG. Resting and awake background rhythm consisted of 6-7 Hz theta activity measuring 15-40 microvolts in amplitude, which was symmetric and reactive to eye opening. No sleep was achieved. Hyperventilation could not be performed. Photic stimulation remained unremarkable. EKG revealed normal sinus rhythm. No focal, lateralizing, or epileptiform abnormalities were seen. No relevant clinical activity was noted. CONCLUSION: This EEG in awake and drowsy states is abnormal due to presence of mild generalized slowing and disorganization of background consistent with nonspecific diffuse cerebellar dysfunction suggesting an encephalopathy. No clear epileptiform abnormalities were seen. Clinical correlation is recommended.
[2020-06-22] MEDS: PRAVASTATIN 20 MG TAB PO SCH (09:26)
[2020-06-22] MEDS: OXcarbazepine 150 MG TAB PO SCH (09:26)
[2020-06-22] MEDS: amLODIPine 5 MG TAB PO SCH (09:26)
[2020-06-22] MEDS: SPIRONOLACTONE 50 MG TAB PO SCH (09:26)
[2020-06-22] MEDS: AZITHROMYCIN 250MG TABLET PO SCH (09:26)
[2020-06-22] MEDS: POTASSIUM CHLORIDE 10 MEQ SR TABLET PO SCH (09:26)
[2020-06-22] MEDS: METOPROLOL TART 25 MG TABLET PO SCH (09:27)
[2020-06-22] MEDS: APIXABAN 2.5 MG TAB (ELIQUIS) PO SCH (09:27)
[2020-06-22] MEDS ORDERED: METO1TAB87 PO (09:43)
[2020-06-22] MEDS ORDERED: AMLO1TAB24 PO (09:43)
[2020-06-22] MEDS ORDERED: TORS100T PO (09:43)
[2020-06-22] MEDS ORDERED: POTASSIUM CHLORIDE 10 MEQ SR TABLET PO ONE (10:50)
--- NOTE | 2020-06-22 11:15 | ECHO ---
DATE OF PROCEDURE: 06/20/2020 Age: 84 Gender: Male REFERRING PHYSICIAN: Loreto Snyder M.D. PATIENT LOCATION: Room 3328. REASON FOR STUDY: Edema. 2D MEASUREMENTS: IVS 1.8 cm LV 4.8 cm LVPW 1.8 cm LA 5.0 cm Aorta 3.4 cm IVC 2.3 cm DOPPLER MEASUREMENT Peak velocity across the aortic valve 1.8 m/s Peak velocity across the LVOT 0.9 m/s Mitral E 1.1 Maximum tricuspid valve velocity 3.9 m/s 2D COMMENTS: 1. Moderately increased left ventricular wall thickness with normal left ventricular size, but a mildly depressed global left ventricular systolic function. There was mild global hypokinesis. The estimated left ventricular systolic ejection fraction is 45% to 50%. 2. Amasyr-qs-gipwiloitt enlarged left atrium. The right atrium appeared to be mildly enlarged. Normal right ventricle. 3. The atrial septum appeared to be normal without evidence of defect or shunt. 4. Normal aortic root. 5. No pericardial effusion seen. 6. Mildly calcified aortic valve with minimally restricted leaflet motion. Moderately calcified mitral annulus with normal anterior mitral valve leaflet motion. Normal tricuspid valve and pulmonic valve. The proximal pulmonary artery branches were not well visualized. 7. The inferior vena cava is dilated, central venous pressure is most likely normal. 8. Doppler detects moderate aortic regurgitation, mild mitral regurgitation, moderate tricuspid regurgitation, and trace pulmonic regurgitation. The calculated pulmonary artery systolic pressure varies between 60 to 70 mmHg. Assessment of the left ventricular diastolic function was limited. IMPRESSION: 1. Mildly depressed global left ventricular systolic function with preserved left ventricular wall thickness. Assessment of the left ventricular diastolic function was limited. 2. Aortic valve sclerosis with trivial aortic stenosis and moderate aortic regurgitation. 3. Moderately calcified mitral annulus with mild mitral regurgitation and nhovrw-lm-jveqiinjhm enlarged left atrium. 4. Dilated right atrium with moderate tricuspid regurgitation and severe pulmonary hypertension. 5. Trace pericardial effusion. 6. Not mentioned above, bubble study with agitated normal saline was done and there was no passage of bubble from the right heart chambers to the left heart chambers. MTDD
[2020-06-22 12:00] VITALS: BP 158/77
--- NOTE | 2020-06-22 15:46 | REPVR ---
PROCEDURE INFORMATION: Exam: MR Angiogram Head Without Contrast, Arteries Exam date and time: 06/22/2020 3:12 PM Age: 84 years old Clinical indication: Condition or disease; Aneurysm, cerebral; Additional info: R paraseller aneurysm TECHNIQUE: Imaging protocol: MR angiogram head without contrast. Exam focused on the arteries. COMPARISON: 1. MRI-Brain without Contrast 06/21/2020 8:[address] Head without contrast 06/19/2020 6:48:[address] Head without contrast 10/23/2017 8:23:39 PM FINDINGS: ANTERIOR CIRCULATION: Right internal carotid artery: Intracranial segment is patent with no significant stenosis. No aneurysm. Right middle cerebral artery: No occlusion or significant stenosis. No aneurysm. Right anterior cerebral artery: No occlusion or significant stenosis. No aneurysm. Left internal carotid artery: Intracranial segment is patent with no significant stenosis. No aneurysm. Left middle cerebral artery: No occlusion or significant stenosis. No aneurysm. Left anterior cerebral artery: No occlusion or significant stenosis. No aneurysm. POSTERIOR CIRCULATION: Right vertebral artery: The right vertebral artery is dominant. Patent. No aneurysm. Left vertebral artery: The left vertebral artery is developmentally hypoplastic. The left vertebral artery is poorly evaluated in the proximal cisternal segment due to motion artifact. Distal V4 segment appears patent. No visible aneurysm. Basilar artery: No occlusion or significant stenosis. No aneurysm. Right posterior cerebral artery: No occlusion or significant stenosis. No aneurysm. Left posterior cerebral artery: No occlusion or significant stenosis. No aneurysm. Brain: Soft tissue signal intensity in the right parasellar region measuring approximately 1.0 x 0.8 cm, image 102 of series 201, likely a meningioma. IMPRESSION: 1. Images are motion degraded. This does in particular limited evaluation of the proximal intracranial left vertebral artery. 2. No evidence of right parasellar ICA aneurysm. 3. The right parasellar lesion probably represents a partially calcified meningioma. Electronically signed by: Samara Wagoner On 06/22/2020 15:46:57 PM
[2020-06-22 16:00] VITALS: BP 128/69
[2020-06-22] MEDS ORDERED: TORSEMIDE 100 MG TAB PO SCH (17:00)
--- NOTE | 2020-06-22 17:15 | DS.PDOC ---
Discharge Summary General Date of Admission Jun 19, 2020 at 19:43 Date of Discharge 06/22/2020 Discharge Summary PROCEDURES PERFORMED DURING STAY: [None]. 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 Patient is reported that he's been feeling short of breath with a chronic cough and lower extremity swelling for a while. Patient was admitted to the hospitalist service for further evaluation and treatment. Patient was seen and examined at the bedside with sitting up in chair, appears to be comfortable, denies any chest pain, shortness of breath, palpitations. Has not experience any abdominal discomfort or diarrhea. Patient has been progressing with physical therapy and has been urinating appropriately. 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) - Physical does not reveal any focal neurologic deficits - Imaging noted below; MRI / MRA findings HTN urgency - BP better controlled now - c/w Furosemide / Spironolactone / Metoprolol / Amlodipine Shortness of breath - likely 2/2 Decompensated Diastolic CHF - Physical with improvement noted - BNP elevated - Imaging consistent with fluid overload - ECHO with reduced EF at 45%; negative bubble study - Strict ins/outs, Daily weights; c/w fluid restrictions - c/w Spironolactone; adjusted to Torsemide at higher dose - will have outpatient follow up with PCP / Nephrology / Cardiology within 7 days Meningioma; not aneurysm - Discussed findings with patient and daughter and updated them about new MRA findings - Updated PCP about new findings - Will defer neurosurgical consultation at this time Hx of NSTEMI - Catheterization 05/2016 showing insignificant coronary artery disease - Catheterization 02/06/2020 showing insignificant coronary artery disease - NM Myocardial perfusion SPECT study: There is a small fixed defect in the lateral wall, which may represent prior infarct, with a small area of adjacent reversibility in the mid lateral wall which may represent associated brandyn- infarct ischemia - Patient has been advised by Cardiology, Dr. Magana to have a bubble study completed - ECHO with reduced EF at 45%; negative bubble study - As per Cardiology; Dr. Magana had mentioned that patient may ultimately require a right heart catheterization TRISTA on CKD3 - possibly 2/2 cardiorenal syndrome - Creatinine has returned to baseline - BUN / Cr baseline of 24-38 / 1.6-2.0 - from [facility] on 03/2020 - Renal US noted above - Will avoid nephrotoxic medications - c/w Diuresis Hypernatremia (mild) s/p Hypokalemia - c/w supplementation Leucocytosis - Stable - Remains hemodynamically stable and afebrile - UA negative - COVID19 PCR negative; Respiratory panel negative - Blood cultures 06/19: No growth at 48 hours - Procalcitonin negative - s/p Azithromycin (5 day course - for reported URTI) 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 in the right MCA territory - c/w Pravastatin Chronic Atrial fibrillation - Rate remains controlled - c/w rate control with metoprolol tartrate - will continue with reduced dose - c/w full anticoagulation with Eliquis Hx of Seizures (Dx: 01/2017) - Patient has not had any recent seizures based on his and his 's accord - Most recent seizure was >1 year ago - Questionable significance of slightly elevated prolactin level - Oxcarbazepine levels pending - EEG 06/21: This EEG in awake and drowsy states is abnormal due to presence of mild generalized slowing and disorganization of background consistent with nonspecific diffuse cerebellar dysfunction suggesting an encephalopathy. No clear epileptiform abnormalities were seen. Clinical correlation is recommended. - c/w Oxcarbazepine Hypothyroidism - c/w Levothyroxine Class 1 obesity - Complicating medical care DVT prophylaxis - c/w full anticoagulation with Eliquis DISCHARGE MEDICATIONS: Please see below. ALLERGIES: Please see below. PHYSICAL EXAMINATION ON DISCHARGE: Vitals (See below) General: Sitting up in chair, appears to be comfortable, awake, alert, oriented 3 HEENT: Bilateral ears with scabs noted; s/p staple removal of R posterior ear CVS: +S1S2 Lungs: Auscultation this morning does not reveal any crackles, wheezing or rhonchi Abdomen: No distention or tenderness Extremities: There is still trace to 1+ pitting edema bilaterally LABORATORY DATA: Please see below. IMAGING: Chest xray 06/19: NO ACUTE PULMONARY DISEASE Igyo-lj-jphdyegi cardiomegaly. CT chest 06/19: 1. The heart size is borderline enlarged. Normal pulmonary vasculature. Moderate coronary artery calcification is present. 2. No CT evidence of thoracic aortic aneurysm or acute intramural thoracic aortic hematoma. 3. Patchy areas of dependent interstitial pulmonary edema is seen in both lung bases with a tiny right pleural effusion present. A small pulmonary bulla is seen in the posterior lingular lobe. 4. Mild chronic degenerative anterior vertebral body endplate osteophytic di sease is seen in the mid to lower thoracic spine. 5. A small 1.6 cm diameter hypodense mass is present in the left lobe of the liver on image 91 of series 202. This finding has sharp margins and homogeneous low internal attenuation of 7 Hounsfield units. These are benign features and no further follow-up is recommended. 6. A short segment of large bowel is interposed between the anterior right lobe of the liver and the anterior right hemidiaphragm. 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 CT head 06/19: 1. No acute intracranial abnormality seen. 2. Prominent degree of cerebral volume loss and deep white matter gliosis. Renal US 06/20: Bilateral renal cortical cysts. Prominent prostate gland. No Doppler evidence to suggest renal artery stenosis. MRI Brain 06/21: No acute intracranial abnormality. Chronic changes. 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 CTA may be of benefit as indicated. MRA Brain 06/22: 1. Images are motion degraded. This does in particular limited evaluation of the proximal intracranial left vertebral artery. 2. No evidence of right parasellar ICA aneurysm. 3. The right parasellar lesion probably represents a partially calcified meningioma. ECHO 06/22: 1. Mildly depressed global left ventricular systolic function with preserved left ventricular wall thickness. Assessment of the left ventricular diastolic function was limited. 2. Aortic valve sclerosis with trivial aortic stenosis and moderate aortic regurgitation. 3. Moderately calcified mitral annulus with mild mitral regurgitation and gscepf-jf-ovawidtltm enlarged left atrium. 4. Dilated right atrium with moderate tricuspid regurgitation and severe pulmonary hypertension. 5. Trace pericardial effusion. 6. Not mentioned above, bubble study with agitated normal saline was done and there was no passage of bubble from the right heart chambers to the left heart chambers. ACTIVITY: [As tolerated]. DISCHARGE PLAN: Follow up with PCP, Cardiology and Nephrology within 7 days. Remain complaint with treatment plan and medications Return to the ER if you experience any problems DISPOSITION: Home with services DISCHARGE CONDITION: [Stable]. TIME SPENT ON DISCHARGE: 35 minutes Vital Signs/I&Os Vital Signs Date Time Temp Pulse Resp B/P (MAP) Pulse Ox O2 Delivery O2 Flow Rate FiO2 06/22/20 08:00 97.4 109 19 167/82 (110) 98 Room Air 06/20/20 08:00 0.0 I&O- Last 24 Hours up to 6 AM 06/22/20 06:00 Intake Total 2070 ml Output Total 3195 ml Balance -1125 ml Laboratory Data Labs 24H Laboratory Tests 2 06/22/20 06:04: Immature Granulocyte % (Auto) 0.6, Neutrophils (%) (Auto) 79.1H, Lymphocytes (%) (Auto) 8.4L, Monocytes (%) (Auto) 8.1H, Eosinophils (%) (Auto) 3.2H, Basophils (%) (Auto) 0.6, Neutrophils # (Auto) 10.0H, Lymphocytes # (Auto) 1.1L, Monocytes # (Auto) 1.0H, Eosinophils # (Auto) 0.4, Basophils # (Auto) 0.1, Nucleated Red Blood Cells % (auto) 0.2H, Anion Gap 5L, Glomerular Filtration Rate 32.7L, Calcium Level 9.8, Magnesium Level 2.4, Total Bilirubin 0.7, Aspartate Amino Transf (AST/SGOT) 32, Alanine Aminotransferase (ALT/SGPT) 39, Alkaline Phosphatase 100, C-Reactive Protein, Quantitative 2.64H, Total Protein 6.7, Albumin 3.6, Albumin/Globulin Ratio 1.2 CBC/BMP Laboratory Tests 06/22/20 06:04 Microbiology Microbiology 06/21/20 Respiratory Virus Panel (PCR) (ADRY) - Final, Complete 06/19/20 Blood Culture - Preliminary, Resulted No Growth after 48 hours. All Specime... 06/19/20 Blood Culture - Preliminary, Resulted No Growth after 48 hours. All Specime... Discharge Medications Scheduled Amlodipine Besylate (Amlodipine Besylate) 5 Mg Tablet, 5 MG PO BID Apixaban (Eliquis) 2.5 Mg Tab, 2.5 MG PO BID, (Reported) Eplerenone (Eplerenone) 50 Mg Tablet, 50 MG PO DAILY, (Reported) Levothyroxine Sodium (Levothyroxine Sodium) 75 Mcg Tablet, 75 MCG PO DAILY, (Reported) Metoprolol Tartrate (Metoprolol Tartrate) 25 Mg Tablet, 25 MG PO BID Oxcarbazepine (Oxcarbazepine) 150 Mg Tab, 300 MG PO BID, (Reported) Potassium Chloride (K-Tab ER) 20 Meq Tab, 20 MEQ PO BID, (Reported) Pravastatin Sodium (Pravastatin Sodium) 20 Mg Tablet, 20 MG PO DAILY, (Reported) Torsemide (Torsemide) 100 Mg Tablet, 100 MG PO BID@09,17 Trazodone HCl (Trazodone HCl) 50 Mg Tab, 25 MG PO QHS, (Reported) Allergies Coded Allergies: spironolactone (Unverified Allergy, Unknown, 06/19/20) JERROD KLEIN MD Jun 22, 2020 11:01
== END 2020-06-22 18:00 | disposition home health service (06) | DRG 291 ==
LOC: M ED 14:51 → M ED INP 19:43 → ENRESERV 19:57 → M PCU 21:15
PROVIDERS: ADMIT Internal Medicine; ATTEND Internal Medicine
DX: I13.0 Hypertensive heart and chronic kidney disease with heart failure and stage 1 through stage 4 chronic kidney disease, or unspecified chronic kidney disease (principal); I50.33 Acute on chronic diastolic (congestive) heart failure; E72.20 Disorder of urea cycle metabolism, unspecified; N17.9 Acute kidney failure, unspecified; I48.11 Longstanding persistent atrial fibrillation; I67.4 Hypertensive encephalopathy; E87.0 Hyperosmolality and hypernatremia; I25.110 Atherosclerotic heart disease of native coronary artery with unstable angina pectoris; G47.33 Obstructive sleep apnea (adult) (pediatric); E66.9 Obesity, unspecified; I25.2 Old myocardial infarction; N18.30 Chronic kidney disease, stage 3 unspecified; I16.0 Hypertensive urgency; D32.0 Benign neoplasm of cerebral meninges; D72.829 Elevated white blood cell count, unspecified; Z86.73 Personal history of transient ischemic attack (TIA), and cerebral infarction without residual deficits; Z79.01 Long term (current) use of anticoagulants; Z79.899 Other long term (current) drug therapy; Z88.8 Allergy status to other drugs, medicaments and biological substances; Z87.891 Personal history of nicotine dependence; E87.6 Hypokalemia; Z85.828 Personal history of other malignant neoplasm of skin; Z68.30 Body mass index [BMI] 30.0-30.9, adult

== ENCOUNTER → 2020-07-17 | Outpatient (REF) | payer MEDICARE ==
[~2020-07-17] MED LIST changes: +AMLO1TAB24 PO; +AZIT-12 PO; +EPLE50TA PO; +LEVO75TA4 PO; +METO1TAB87 PO; +PRAV20TA2 PO; +TORS20TA2 PO
== END ==
LOC: M LAB REF 13:56
PROVIDERS: ATTEND Dermatology
DX: T14.90XD Injury, unspecified, subsequent encounter (principal)

== ENCOUNTER → 2020-09-20 | Outpatient (REF) | payer MEDICARE | LOC: M LAB REF 12:26 | PROVIDERS: ATTEND Internal Medicine | DX: E83.52 Hypercalcemia (principal) ==

== ENCOUNTER 2020-10-26 23:44 | Emergency (ER) | payer MEDICARE ==
[~2020-10-26] VITALS: Ht 177.8 cm; Wt 90.9 kg
[2020-10-27 00:41] LABS: BASO % 0.3 % (0.0-1.0); EOS % 0.2 % (0.0-3.0); HEMATOCRIT 41.3 % (42.0-52.0); HEMOGLOBIN 13.1 g/dl (13.5-17.5); LYMPH # 0.7 10^3/uL (1.5-5.0); LYMPH % 5.3 % (24.0-44.0); MEAN CORPUSCULAR HEMOGLOBIN 31.8 pg (27.0-33.0); MEAN CORPUSCULAR HGB CONC 31.7 g/dl (32.0-36.5); MEAN CORPUSCULAR VOLUME 100.2 fl (80.0-96.0); MONO # 0.7 10^3/uL (0.0-0.8); MONO % 5.8 % (2.0-8.0); NEUTROPHILS % 87.3 % (36.0-66.0); PLATELET COUNT, AUTOMATED 254 10^3/uL (150-450); RED BLOOD COUNT 4.12 10^6/uL (4.30-6.10); WHITE BLOOD COUNT 12.6 10^3/uL (4.0-10.0)
[2020-10-27 00:51] LABS: INR 1.32; PROTHROMBIN TIME 16.8 SECONDS (12.7-14.5)
[2020-10-27 00:52] LABS: PARTIAL THROMBOPLASTIN TIME 35.5 SECONDS (25.9-37.0)
[2020-10-27 01:04] LABS: CALCIUM LEVEL 9.4 MG/DL (8.8-10.2); CREATININE FOR GFR 2.62 MG/DL (0.70-1.30); GLOMERULAR FILTRATION RATE 24.9 (>35); POTASSIUM SERUM 4.5 MEQ/L (3.5-5.1)
--- NOTE | 2020-10-27 02:36 | REPVR ---
PROCEDURE INFORMATION: Exam: XR Chest Exam date and time: 10/27/20 (12:51am) Age: 85 years old Clinical indication: Chest pain TECHNIQUE: Imaging protocol: Portable CXR Views: 1 view COMPARISON: CT CHEST of 06/19/20 Portable CXR of 06/19/20 FINDINGS: Comparison is made with chest studies done on 06/19/20. Stable cardiomegaly. Left ventricular prominence. No significant vascular congestion. Mildly prominent lower lobe markings. No focal infiltrates. No pleural effusions. No pneumothorax. IMPRESSION: No acute findings. No significant interval change compared to portable CXR done on 06/19/20. Electronically signed by: Maia Lujan On 10/27/2020 02:35:49 AM
[2020-10-27 05:50] VITALS: BP 150/85
--- NOTE | 2020-10-27 09:35 | ECGEPIP ---
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
== END 2020-10-27 06:15 | disposition home or self-care (01) ==
LOC: M ED 23:44
DX: R07.89 Other chest pain (principal); I45.10 Unspecified right bundle-branch block; I48.91 Unspecified atrial fibrillation; I25.10 Atherosclerotic heart disease of native coronary artery without angina pectoris; I50.9 Heart failure, unspecified; I51.7 Cardiomegaly; N18.9 Chronic kidney disease, unspecified; Z79.01 Long term (current) use of anticoagulants; Z79.899 Other long term (current) drug therapy; Z88.8 Allergy status to other drugs, medicaments and biological substances

== ENCOUNTER 2020-11-09 22:49 | Inpatient (IN) | payer MEDICARE ==
[~2020-11-09] VITALS: Ht 177.8 cm; Wt 90.2 kg
[2020-11-10 00:27] LABS: INR 1.23; PROTHROMBIN TIME 15.9 SECONDS (12.7-14.5)
[2020-11-10 00:28] LABS: BASO # 0.1 10^3/uL (0.0-0.2); BASO % 0.5 % (0.0-1.0); EOS # 0.1 10^3/uL (0.0-0.5); EOS % 0.7 % (0.0-3.0); HEMATOCRIT 42.3 % (42.0-52.0); HEMOGLOBIN 13.7 g/dl (13.5-17.5); LYMPH # 0.9 10^3/uL (1.5-5.0); LYMPH % 6.4 % (24.0-44.0); MEAN CORPUSCULAR HEMOGLOBIN 32.2 pg (27.0-33.0); MEAN CORPUSCULAR HGB CONC 32.4 g/dl (32.0-36.5); MEAN CORPUSCULAR VOLUME 99.3 fl (80.0-96.0); MONO # 1.2 10^3/uL (0.0-0.8); MONO % 8.7 % (2.0-8.0); NEUTROPHILS # 11.3 10^3/uL (1.5-8.5); NEUTROPHILS % 82.9 % (36.0-66.0); PLATELET COUNT, AUTOMATED 283 10^3/uL (150-450); RED BLOOD COUNT 4.26 10^6/uL (4.30-6.10); WHITE BLOOD COUNT 13.6 10^3/uL (4.0-10.0)
[2020-11-10] MEDS ORDERED: NITROGLYCERIN 0.4 MG SUBL TABLET SL PRN (00:45)
[2020-11-10] MEDS ORDERED: ASPIRIN 81 MG CHEW TABLET PO ONE (00:45)
[2020-11-10 00:53] LABS: RSV AMPLIFICATION NEGATIVE (NEGATIVE)
[2020-11-10 01:23] LABS: ALBUMIN 3.4 GM/DL (3.2-5.2); ALT/SGPT 24 U/L (12-78); BILIRUBIN,DIRECT < 0.1 MG/DL (0.0-0.2); BILIRUBIN,TOTAL 0.4 MG/DL (0.2-1.0); BLOOD UREA NITROGEN 40 MG/DL (7-18); CALCIUM LEVEL 8.9 MG/DL (8.8-10.2); CARBON DIOXIDE LEVEL 27 MEQ/L (21-32); CHLORIDE LEVEL 109 MEQ/L (98-107); CK-MB VALUE MASS 1.9 NG/ML (<3.6); CPK CREATINE PHOSPHOKINASE 76 U/L (39-308); CREATININE FOR GFR 2.36 MG/DL (0.70-1.30); GLOMERULAR FILTRATION RATE 28.1 (>35); GLUCOSE, FASTING 100 MG/DL (70-100); NT-PRO BNP 9695 PG/ML (<450); POTASSIUM SERUM 5.5 MEQ/L (3.5-5.1); SODIUM LEVEL 140 MEQ/L (136-145); TOTAL PROTEIN 6.9 GM/DL (6.4-8.2); TROPONIN I 0.05 NG/ML (< 0.10)
--- NOTE | 2020-11-10 01:38 | REPVR ---
PROCEDURE INFORMATION: Exam: XR Chest Exam date and time: 11/09/2020 12:11 AM Age: 85 years old Clinical indication: Cough and dyspnea TECHNIQUE: Imaging protocol: XR of the chest. Views: 1 view. COMPARISON: 1. CR PORTABLE CHEST X-RAY 10/27/2020 12:[address] Chest without contrast 06/19/2020 6:00:03 PM FINDINGS: Lungs: There is a left basilar airspace opacity, which may represent pneumonia. Pleural spaces: Unremarkable. No pleural effusion. No pneumothorax. Heart/Mediastinum: The heart is enlarged. The mediastinal contours are unremarkable. Bones/joints: There are endplate spurs in the thoracic spine. Gastrointestinal tract: There is interposition of the hepatic flexure of the colon anterior to the liver and just below the right hemidiaphragm (Chilaiditi sign). IMPRESSION: 1. Left basilar airspace opacity, which may represent pneumonia. 2. Cardiomegaly. Electronically signed by: Goyo Brady On 11/10/2020 01:38:34 AM
[2020-11-10] MEDS ORDERED: AZITHROMYCIN 250MG TABLET PO ONE (03:30)
[2020-11-10] MEDS ORDERED: cefTRIAXone SOD 1 GM in D5W MINI-BAG PLUS 50 ML IV ONE (03:30)
[2020-11-10] MEDS ORDERED: LISI20TA33 PO (04:11)
[2020-11-10] MEDS ORDERED: AMLO1TAB24 PO (04:11)
[2020-11-10] MEDS ORDERED: IPRATROPIUM 0.5MG/ALBUTEROL 2.5MG INH SOL UD 3ML (DUONEB) INH PRN (04:25)
[2020-11-10] MEDS ORDERED: ACETAMINOPHEN TAB 650MG DOSE (2X325MG) PO PRN (04:25)
--- NOTE | 2020-11-10 04:43 | HPEPDOC ---
General Date of Admission 11/10/2020 Date of Service: Nov 10, 2020 Chief Complaint The patient is a 85-year-old male admitted with a reason for visit of Pressure In Chest. Source: Patient History of Present Illness Callum Muse is an 85 year old male with a PMHx of A. 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 Pt clear "it is not pain". Pt reports he was recently in ED for a night a week ago for chest pain w/u. Pt reports he saw cardiology recently and they have ablation planned for his afib. He otherwise reports eh has been at his baseline until he decided to come back in today for the R side chest sensation. pt reports this sensation has been g oing on for 3 weeks. Patient somewhat poor historian with his baseline cognitive impairments. Pt denies mata, sinus congestion, sore throat, productive cough, sob, palpitations,n/v/d, abdominal pain, weakness, sensory changes or syncope. Of note, patient chest x-ray left basilar opacification. WBCs 13.6. Creatinine 2.36, K5.5, BNP 9695, EKG A. fib. PCR respiratory panel negative. Patient than kfully tolerating room air. Patient will be admitted for further evaluation management presenting concerns. Home Medications Scheduled Amlodipine Besylate (Amlodipine Besylate) 5 Mg Tablet, 5 MG PO BID, (Reported) Apixaban (Eliquis) 2.5 Mg Tab, 2.5 MG PO BID, (Reported) Eplerenone (Eplerenone) 50 Mg Tablet, 50 MG PO DAILY, (Reported) Levothyroxine Sodium (Levothyroxine Sodium) 75 Mcg Tablet, 75 MCG PO DAILY, (Reported) Lisinopril (Lisinopril) 20 Mg Tablet, 20 MG PO DAILY, (Reported) Metoprolol Tartrate (Metoprolol Tartrate) 25 Mg Tablet, 25 MG PO BID Oxcarbazepine (Oxcarbazepine) 150 Mg Tab, 300 MG PO BID, (Reported) Potassium Chloride (K-Tab ER) 20 Meq Tab, 20 MEQ PO BID, (Reported) Pravastatin Sodium (Pravastatin Sodium) 20 Mg Tablet, 20 MG PO DAILY, (Reported) Torsemide (Torsemide) 100 Mg Tablet, 100 MG PO BID@, Trazodone HCl (Trazodone HCl) 50 Mg Tab, 25 MG PO QHS, (Reported) Allergies Coded Allergies: spironolactone (Unverified Allergy, Unknown, 06/19/20) Past Medical History Medical History A. 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), Hx of Seizures (01/2017), CKD3, Obesity, BPH Surgical History Subdural hematoma s/p evacuation, colonoscopy with polypectomy, TURP, tonsillectomy Family History Significant Family History: No pertinent family hx Social History Alcohol: Denies Recent Travel/Sick Contacts: Denies: Recent travel, Recent sick contacts Psychosocial History: No pertinent psych hx A-FIB/CHADSVASC A-FIB History Current/History of A-Fib/PAF?: Yes Current PO Anticoag Therapy: Yes Review of Systems Constitutional: Reports: Fatigue; Denies: Chills, Fever, Night Sweats Eyes: Denies: Pain, Vision change ENT: Denies: Head Aches, Ear Pain, Dysphagia Skin: Denies: Rash, Lesions, Breakdown Pulmonary: Denies: Dyspnea, Cough Cardiovascular: Reports: Chest Pain; Denies: Palpitations, Paroxysmal Noc. Dyspnea, Lt Headedness Gastrointestinal: Denies: Nausea, Vomiting, Abdominal Pain, Diarrhea Genitourinary: Denies: Dysuria, Frequency, Incontinence, Retention Hematologic: Denies: Bruising, Bleeding Excessively Musculoskeletal: Denies: Neck Pain, Back Pain, Joint Pain, Muscle Pain, Spasms Neurological: Denies: Weakness, Numbness, Change in speech, Confusion Psych: Reports: Mood Normal; Denies: Depression, Memory Issues Physical Examination General Exam: Positive: Alert, No Acute Distress Eye Exam: Positive: PERRLA, Conjunctiva & lids normal, EOMI; Negative: Sclera icteric ENT Exam: Positive: Atraumatic, Mucous membr. moist/pink, Pharynx Normal Neck Exam: Positive: Supple; Negative: JVD, thyromegaly Chest Exam: Positive: Rales Heart Exam: Positive: Rate Normal, Irregular Rhythm, Normal S1, Normal S2; Negative: Murmurs, Rubs Telemetry: Positive: Atrial fibrillation Abdomen Exam: Positive: Normal bowel sounds, Soft, Other (+BH); Negative: Tenderness, Hepatospenomegaly Extremity Exam: Positive: Edema, Normal pulses; Negative: Clubbing, Cyanosis Skin Exam: Positive: Nl turgor and temperature; Negative: Breakdown, Lesion Neuro Exam: Positive: Normal Gait, Normal Speech, Cranial Nerves 3-12 NL, Reflexes 2+ Psych Exam: Positive: Mental status NL, Mood NL, Oriented x 3, Other (short term memory impairment- trouble word finding; pt at baseline ); Negative: Memory Intact Vital Signs Vital Signs Date Time Temp Pulse Resp B/P (MAP) Pulse Ox O2 Delivery O2 Flow Rate FiO2 11/10/20 02:19 79 18 98 Room Air 11/10/20 02:15 173/77 (109) 11/09/20 22:50 98.2 Laboratory Data Labs 24H Laboratory Tests 2 11/09/20 23:05: Coronavirus (COVID-19)(PCR) NEGATIVE, Influenza Type A (RT-PCR) NEGATIVE, Influenza Type B (RT-PCR) NEGATIVE, Respiratory Syncytial Virus (PCR) NEGATIVE 11/09/20 23:34: Immature Granulocyte % (Auto) 0.8, Neutrophils (%) (Auto) 82.9H, Lymphocytes (%) (Auto) 6.4L, Monocytes (%) (Auto) 8.7H, Eosinophils (%) (Auto) 0.7, Basophils (%) (Auto) 0.5, Neutrophils # (Auto) 11.3H, Lymphocytes # (Auto) 0.9L, Monocytes # (Auto) 1.2H, Eosinophils # (Auto) 0.1, Basophils # (Auto) 0.1, Nucleated Red Blood Cells % (auto) 0.0, Prothrombin Time 15.9H, Prothromb Time International Ratio 1.23 11/10/20 00:40: Anion Gap 4L, Glomerular Filtration Rate 28.1L, Calcium Level 8.9, Total Bilirubin 0.4, Direct Bilirubin < 0.1, Aspartate Amino Transf (AST/SGOT) 43H, Alanine Aminotransferase (ALT/SGPT) 24, Alkaline Phosphatase 101, Total Creatine Kinase 76, Creatine Kinase MB 1.9, Creatine Kinase MB Relative Index 2.50, Troponin I 0.05, BQ-Iks-M-Type Natriuretic Peptide 9695H, Total Protein 6.9, Albumin 3.4, Albumin/Globulin Ratio 1.0 CBC/BMP Laboratory Tests 11/09/20 23:34 11/10/20 00:40 Assessment/Plan 1. Pneumonia: Chest x-ray shows left-sided basilar opacity, possible pneumonia, coupled with patient's leukocytosis will treat for pneumonia. Monitor patient for respiratory decompensation. Check procalcitonin, lactic, blood cultures. Symptom management/supportive care scheduled breathing treatments and mucolytic's. Pulmonary toilet. Will treat empirically with Rocephin and azithromycin. Consider escalation/de- escalation pending patient response. Consider CT chest (without contrast given creatinine). A.m. labs. 2. Right-sided chest pressure patient with Hx of NSTEMI: Patient denies trauma. Range of motion intact right shoulder/right upper extremity. No pinpoint tenderness upon examination. Chest sensation likely secondary to pneumonia above or radiating compensatory MSK related sensation. It is worth noting patient does have a history of TY but noncompliant with CPAP. -Given patient significant history of CAD with recent heart cath in January 2020plan to monitor. -Troponin trend and telemetry. -Repeat EKG in 6 hours with any recurrent chest pain/significant ischemic changes would opt for cardiology eval and consideration for further cardiac work-up. 3. Hypertension: Patient reports compliance with medications. He is notably hypertensive upon admission 177/70. Plan for manual blood pressure check and consider one-time dose additional diuretic versus generalized BP control. Continue home medications. 4. CHF: Without overt exacerbation. Patient does have 1+ bilateral lower extremity edema but he does not endorse this as an increase from baseline. Continue home medications with monitoring for creatinine and fluid balance. 5. CKD3: Creatinine appears at baseline. Avoid nephrotoxins as able. 6. Hypokalemia: Hold supplementation and monitor labs. 7. Chronic Atrial fibrillation: Patient thankfully rate controlled. Continue with metoprolol and OAC. 8. Hx of Seizures (Dx: 01/2017): Oxcarbazepine levels pending -continue oxcarbazepine. 9. Hypothyroidism: Continue levothyroxine 10. Obesity:complicates care DVT: SCDs, Eliquis CODE STATUS: Full code Disposition: Home anticipated 2 midnight stay Plan / VTE VTE Prophylaxis Ordered?: Yes EVELIO KONG NP Nov 10, 2020 04:30
[2020-11-10] MEDS ORDERED: METOPROLOL TART 25 MG TABLET PO ONE (05:35)
[2020-11-10] MEDS ORDERED: amLODIPine 5 MG TAB PO ONE (05:35)
[2020-11-10] MEDS: AZITHROMYCIN INJ 500 MG, VIAL MATE ADAPTER 1 EACH in NS 250 ML IV SCH (05:55)
[2020-11-10] MEDS ORDERED: TORS100T PO (06:12)
[2020-11-10] MEDS ORDERED: METO1TAB87 PO (06:12)
[2020-11-10] MEDS ORDERED: HOME MED LIST COMPLETE! XX SCH (06:15)
[2020-11-10 06:39] LABS: C REACTIVE PROTEIN QUANTITATIV 1.65 MG/DL (0.00-0.30); TROPONIN I 0.05 NG/ML (< 0.10)
[2020-11-10 09:00] VITALS: BP 148/88
[2020-11-10] MEDS ORDERED: POTASSIUM CHLORIDE 10 MEQ SR TABLET PO SCH (09:00)
[2020-11-10] MEDS ORDERED: SPIRONOLACTONE 50 MG TAB PO SCH (09:00)
[2020-11-10 09:37] VITALS: BP 148/88
[2020-11-10] MEDS: LACTOBACILLUS ACIDOPHILUS CAP (BACID) PO SCH (09:45)
[2020-11-10] MEDS: APIXABAN 2.5 MG TAB (ELIQUIS) PO SCH ×2 (09:46→21:35)
[2020-11-10] MEDS: PRAVASTATIN 20 MG TAB PO SCH (09:46)
[2020-11-10] MEDS: LEVOTHYROXINE 75MCG TABLET (0.075MG) PO SCH (09:47)
[2020-11-10] MEDS: **hydrALAZINE** 10 MG TAB PO SCH ×3 (09:48→21:38)
[2020-11-10 10:02] LABS: CALCIUM LEVEL 9.4 MG/DL (8.8-10.2); CREATININE FOR GFR 2.21 MG/DL (0.70-1.30); GLOMERULAR FILTRATION RATE 30.3 (>35); POTASSIUM SERUM 3.7 MEQ/L (3.5-5.1); TROPONIN I 0.02 NG/ML (< 0.10)
[2020-11-10] MEDS: TORSEMIDE 100 MG TAB PO SCH (10:23)
[2020-11-10] MEDS: OXcarbazepine 150 MG TAB PO SCH ×2 (10:24→21:37)
--- NOTE | 2020-11-10 13:02 | ECGEPIP ---
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
[2020-11-10 14:18] VITALS: BP 154/72
[2020-11-10] MEDS ORDERED: FUROSEMIDE 100MG/10ML VIAL (J1940) IV ONE (15:35)
--- NOTE | 2020-11-10 15:53 | IPNPDOC ---
Subjective Date Seen The patient was seen on 11/10/20. Subjective Chief Complaint/HPI Patient says the right sided chest pressure is gone. He still has some wheezing and some coughing and congestion but better. No further blood with coughing. No fever or chills. I am not really certain if he actually has pneumonia. It looks like for fluid overload. Will get CT chest. Objective Physical Examination General Exam: Positive: Alert, No Acute Distress Eye Exam: Positive: PERRLA, Conjunctiva & lids normal, EOMI; Negative: Sclera icteric ENT Exam: Positive: Atraumatic, Mucous membr. moist/pink, Pharynx Normal Neck Exam: Positive: Supple; Negative: JVD, thyromegaly Chest Exam: Positive: Rhonchi, Wheezing, Other (bilateral basal crackles) Heart Exam: Positive: Rate Normal, Irregular Rhythm, Normal S1, Normal S2; Negative: Murmurs, Rubs Telemetry: Positive: Atrial fibrillation Abdomen Exam: Positive: Normal bowel sounds, Soft, Other (+BH); Negative: Tenderness, Hepatospenomegaly Extremity Exam: Positive: Edema; Negative: Clubbing, Cyanosis Skin Exam: Positive: Nl turgor and temperature; Negative: Breakdown, Lesion Neuro Exam: Positive: Normal Gait, Normal Speech, Cranial Nerves 3-12 NL, Reflexes 2+ Psych Exam: Positive: Mental status NL, Mood NL, Oriented x 3, Other (short term memory impairment- trouble word finding; pt at baseline ); Negative: Memory Intact Assessment /Plan Assessment Callum Muse is an 85 year old male with a PMHx of A. 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 Pt clear "it is not pain". Pt reports he was recently in ED for a night a week ago for chest pain w/u. Pt reports he saw cardiology recently and they have ablation planned for his afib. He also complained of coughing and wheezing for the past 2 days and yesterday had blood with his coughing. EKG with Afib, chest x-ray left basilar opacification. He was admitted for possible pneumonia. However he may also have mild fluid overload and Diastolic CHF exacerbation Possible Pneumonia vs atelectasis. Chest x-ray shows left-sided basilar opacity, possible pneumonia, coupled with patient's leukocytosis will treat for pneumonia. ceftriaxone and azithromycin Will get CT chest. Diastolic CHF exacerbation He reports that he has been congested and coughing and wheezing for the past 2 days and yesterday had blood with his coughing. will give lasix IV once. Continue torsemide Right-sided chest pressure Had cardiac cath x 2 last in Jan 2020 no obstructive CAD. Patient denies trauma. Range of motion intact right shoulder/right upper extremity. Troponins not elevated, EKG no ischemic changes. Likely musculoskeletal chest pain from coughing or related to esophagus patient reports that he has been scheduled for a study of esophagus by his pmd Hypertension continue home meds lisinopril, torsemide, metoprolol. Started on Hydralazine as bp was uncontrolled on admission. CKD3: Creatinine appears at baseline. Avoid nephrotoxins as able. Hyperkalemia: Hold supplementation and monitor labs. Chronic Atrial fibrillation: Patient is rate controlled. Continue with metoprolol and Eliquis Hx of Seizures (Dx: 01/2017): Oxcarbazepine levels pending -continue oxcarbazepine. 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 Plan/VTE VTE Prophylaxis Ordered?: Yes VS, I&O, 24H, Fishbone Vital Signs/I&O Vital Signs Date Time Temp Pulse Resp B/P (MAP) Pulse Ox O2 Delivery O2 Flow Rate FiO2 11/10/20 07:33 97.0 97 20 174/82 (112) 97 Room Air Laboratory Data 24H LABS Laboratory Tests 2 11/09/20 23:05: Coronavirus (COVID-19)(PCR) NEGATIVE, Influenza Type A (RT-PCR) NEGATIVE, Influenza Type B (RT-PCR) NEGATIVE, Respiratory Syncytial Virus (PCR) NEGATIVE 11/09/20 23:34: Immature Granulocyte % (Auto) 0.8, Neutrophils (%) (Auto) 82.9H, Lymphocytes (%) (Auto) 6.4L, Monocytes (%) (Auto) 8.7H, Eosinophils (%) (Auto) 0.7, Basophils (%) (Auto) 0.5, Neutrophils # (Auto) 11.3H, Lymphocytes # (Auto) 0.9L, Monocytes # (Auto) 1.2H, Eosinophils # (Auto) 0.1, Basophils # (Auto) 0.1, Nucleated Red Blood Cells % (auto) 0.0, Prothrombin Time 15.9H, Prothromb Time International Ratio 1.23 11/10/20 00:40: Anion Gap 4L, Glomerular Filtration Rate 28.1L, Calcium Level 8.9, Total Bilirubin 0.4, Direct Bilirubin < 0.1, Aspartate Amino Transf (AST/SGOT) 43H, Alanine Aminotransferase (ALT/SGPT) 24, Alkaline Phosphatase 101, Total Creatine Kinase 76, Creatine Kinase MB 1.9, Creatine Kinase MB Relative Index 2.50, Troponin I 0.05, OI-Kit-X-Type Natriuretic Peptide 9695H, Total Protein 6.9, Albumin 3.4, Albumin/Globulin Ratio 1.0 11/10/20 05:53: 11/10/20 05:58: Lactic Acid Level 0.9, Troponin I 0.05, C-Reactive Protein, Quantitative 1.65H CBC/BMP Laboratory Tests 11/09/20 23:34 11/10/20 00:40 Microbiology Microbiology 11/10/20 Blood Culture, Received Pending JAMARCUS CROOK MD Nov 10, 2020 08:17
--- NOTE | 2020-11-10 17:21 | REP ---
INDICATION: Pneumonia ? LLL. COMPARISON: Chest x-ray 11/09/2020 TECHNIQUE: Scanned without contrast FINDINGS: There are extensive infiltrates in the lower lungs having appearance consistent with COVID. 3 mm right upper lobe subpleural nodule. Tiny calcified granuloma right upper lobe scattered blebs in both lungs. Heart enlarged. Multiple enlarged mediastinal lymph nodes. Coronary arteries calcified. Adrenal glands not enlarged. IMPRESSION: Extensive bibasilar infiltrates suspicious for COVID pneumonia. Mediastinal adenopathy. Cardiomegaly.. 3 mm right upper lobe nodule. <Electronically signed by Andrea Wadsworth > 11/10/20 [id number]
[2020-11-10] MEDS: traZODone 25MG PER 1/2 TABLET PO SCH (21:35)
[2020-11-10] MEDS: METOPROLOL TART 25 MG TABLET PO SCH (21:38)
[2020-11-10 22:00] VITALS: BP 160/88
[2020-11-11] MEDS: cefTRIAXone SOD 1 GM in D5W MINI-BAG PLUS 50 ML IV SCH (04:13)
[2020-11-11] MEDS: AZITHROMYCIN INJ 500 MG, VIAL MATE ADAPTER 1 EACH in NS 250 ML IV SCH (05:44)
[2020-11-11] MEDS: LEVOTHYROXINE 75MCG TABLET (0.075MG) PO SCH (05:44)
[2020-11-11] MEDS: **hydrALAZINE** 10 MG TAB PO SCH ×3 (05:47→22:22)
[2020-11-11 05:56] LABS: BASO # 0.1 10^3/uL (0.0-0.2); BASO % 0.6 % (0.0-1.0); EOS # 0.4 10^3/uL (0.0-0.5); EOS % 3.9 % (0.0-3.0); HEMATOCRIT 37.6 % (42.0-52.0); LYMPH # 1.2 10^3/uL (1.5-5.0); LYMPH % 12.2 % (24.0-44.0); MEAN CORPUSCULAR HEMOGLOBIN 31.7 pg (27.0-33.0); MEAN CORPUSCULAR HGB CONC 31.9 g/dl (32.0-36.5); MEAN CORPUSCULAR VOLUME 99.2 fl (80.0-96.0); MONO # 0.8 10^3/uL (0.0-0.8); MONO % 7.8 % (2.0-8.0); NEUTROPHILS # 7.5 10^3/uL (1.5-8.5); NEUTROPHILS % 75.2 % (36.0-66.0); PLATELET COUNT, AUTOMATED 252 10^3/uL (150-450); RED BLOOD COUNT 3.79 10^6/uL (4.30-6.10); WHITE BLOOD COUNT 9.9 10^3/uL (4.0-10.0)
[2020-11-11 06:00] VITALS: BP 162/90
[2020-11-11 06:22] LABS: CALCIUM LEVEL 9.2 MG/DL (8.8-10.2); CREATININE FOR GFR 1.96 MG/DL (0.70-1.30); GLOMERULAR FILTRATION RATE 34.8 (>35); POTASSIUM SERUM 3.4 MEQ/L (3.5-5.1)
[2020-11-11] MEDS ORDERED: POTASSIUM CHLORIDE 10 MEQ SR TABLET PO ONE (08:00)
[2020-11-11] MEDS: LACTOBACILLUS ACIDOPHILUS CAP (BACID) PO SCH (08:51)
[2020-11-11] MEDS: APIXABAN 2.5 MG TAB (ELIQUIS) PO SCH ×2 (08:51→20:12)
[2020-11-11] MEDS: METOPROLOL TART 25 MG TABLET PO SCH ×2 (08:51→20:13)
[2020-11-11] MEDS: PRAVASTATIN 20 MG TAB PO SCH (08:52)
[2020-11-11] MEDS: FUROSEMIDE 100MG/10ML VIAL (J1940) IV SCH ×2 (08:53→17:12)
[2020-11-11] MEDS: OXcarbazepine 150 MG TAB PO SCH ×2 (08:53→20:12)
--- NOTE | 2020-11-11 13:47 | IPNPDOC ---
Subjective Date Seen The patient was seen on 11/11/20. Subjective Chief Complaint/HPI Feels better today, cough reduced no more blood with phlegm, however states that he feels winded walking back and forth to the bathroom. No chest pain Objective Physical Examination General Exam: Positive: Alert, Cooperative, No Acute Distress Eye Exam: Positive: PERRLA, Conjunctiva & lids normal, EOMI; Negative: Sclera icteric ENT Exam: Positive: Atraumatic, Mucous membr. moist/pink, Pharynx Normal Neck Exam: Positive: Supple; Negative: JVD, thyromegaly Chest Exam: Positive: Other (bilateral basal crackles) Heart Exam: Positive: Rate Normal, Irregular Rhythm, Normal S1, Normal S2; Negative: Murmurs, Rubs Telemetry: Positive: Atrial fibrillation Abdomen Exam: Positive: Normal bowel sounds, Soft, Other (+BH); Negative: Tenderness, Hepatospenomegaly Extremity Exam: Positive: Edema; Negative: Clubbing, Cyanosis Skin Exam: Positive: Nl turgor and temperature; Negative: Breakdown, Lesion Neuro Exam: Positive: Normal Gait, Normal Speech, Cranial Nerves 3-12 NL, Reflexes 2+ Psych Exam: Positive: Mental status NL, Mood NL, Oriented x 3, Other (short term memory impairment- trouble word finding; pt at baseline ); Negative: Memory Intact Assessment /Plan Assessment Callum Muse is an 85 year old male with a PMHx of A. 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 Pt clear "it is not pain". Pt reports he was recently in ED for a night a week ago for chest pain w/u. Pt reports he saw cardiology recently and they have ablation planned for his afib. He also complained of coughing and wheezing for the past 2 days and yesterday had blood with his coughing. EKG with Afib, chest x-ray left basilar opacification. He was admitted for possible pneumonia. However he may also have mild fluid overload and Diastolic CHF exacerbation Possible Pneumonia vs atelectasis. Chest x-ray shows left-sided basilar opacity, possible pneumonia, coupled with patient's leukocytosis will treat for pneumonia. CT chest : Extensive bibasilar infiltrates suspicious for COVID pneumonia. Mediastinal adenopathy. Cardiomegaly.3 mm right upper lobe nodule. COVID negative on 11/10/20 and 11/11/20 Procalcitonin not elevated, No fever , WBC normalized in 1 day. So this is likely Fluid overload and atelectasis. However to be cautious will finish 5 days of antibiotics Now on ceftriaxone and azithromycin Diastolic CHF exacerbation He reports that he has been congested and coughing and wheezing for the past 2 days and yesterday had blood with his coughing. will give IV lasix. Hold torsemide Right-sided chest pressure Had cardiac cath x 2 last in Jan 2020 no obstructive CAD. Patient denies trauma. Range of motion intact right shoulder/right upper extremity. Troponins not elevated, EKG no ischemic changes. Likely musculoskeletal chest pain from coughing or related to esophagus patient reports that he has been scheduled for a study of esophagus by his pmd Hypertension continue home meds lisinopril, torsemide, metoprolol. Started on Hydralazine as bp was uncontrolled on admission. CKD3: Creatinine appears at baseline. Avoid nephrotoxins as able. Hyperkalemia: resolved. supplementation resumed. Chronic Atrial fibrillation: Patient is rate controlled. Continue with metoprolol and Eliquis Hx of Seizures (Dx: 01/2017): Oxcarbazepine levels pending -continue oxcarbazepine. 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 Plan/VTE VTE Prophylaxis Ordered?: Yes VS, I&O, 24H, Fishbone Vital Signs/I&O Vital Signs Date Time Temp Pulse Resp B/P (MAP) Pulse Ox O2 Delivery O2 Flow Rate FiO2 11/11/20 06:00 97.0 80 18 162/90 (114) 95 Room Air I&O- Last 24 Hours up to 6 AM 11/11/20 06:00 Intake Total 1395 ml Output Total 1450 ml Balance -55 ml Laboratory Data 24H LABS Laboratory Tests 2 11/10/20 08:51: Anion Gap 6L, Glomerular Filtration Rate 30.3L, Calcium Level 9.4, Troponin I 0.02# 11/11/20 05:32: Anion Gap 6L, Glomerular Filtration Rate 34.8L, Calcium Level 9.2, Immature Granulocyte % (Auto) 0.3, Neutrophils (%) (Auto) 75.2H, Lymphocytes (%) (Auto) 12.2L, Monocytes (%) (Auto) 7.8, Eosinophils (%) (Auto) 3.9H, Basophils (%) (Auto) 0.6, Neutrophils # (Auto) 7.5, Lymphocytes # (Auto) 1.2L, Monocytes # (Auto) 0.8, Eosinophils # (Auto) 0.4, Basophils # (Auto) 0.1, Nucleated Red Blood Cells % (auto) 0.0 CBC/BMP Laboratory Tests 11/10/20 08:51 11/11/20 05:32 Microbiology Microbiology 11/10/20 Blood Culture - Preliminary, Resulted No growth after 24 hours . All specim... JAMARCUS CROOK MD Nov 11, 2020 08:00
[2020-11-11 14:30] VITALS: BP 162/88
[2020-11-11] MEDS: traZODone 25MG PER 1/2 TABLET PO SCH (20:13)
[2020-11-11] MEDS ORDERED: POTASSIUM CHLORIDE 10 MEQ SR TABLET PO SCH (21:00)
[2020-11-11 22:00] VITALS: BP 158/86
[2020-11-12] MEDS: cefTRIAXone SOD 1 GM in D5W MINI-BAG PLUS 50 ML IV SCH (03:23)
[2020-11-12] MEDS: **hydrALAZINE** 10 MG TAB PO SCH ×2 (05:43→14:39)
[2020-11-12] MEDS: AZITHROMYCIN INJ 500 MG, VIAL MATE ADAPTER 1 EACH in NS 250 ML IV SCH (05:43)
[2020-11-12] MEDS: LEVOTHYROXINE 75MCG TABLET (0.075MG) PO SCH (05:43)
[2020-11-12 06:00] VITALS: BP 178/72
[2020-11-12 06:28] LABS: BASO # 0.1 10^3/uL (0.0-0.2); BASO % 0.7 % (0.0-1.0); EOS # 0.5 10^3/uL (0.0-0.5); EOS % 4.5 % (0.0-3.0); HEMATOCRIT 39.3 % (42.0-52.0); HEMOGLOBIN 12.4 g/dl (13.5-17.5); LYMPH # 1.4 10^3/uL (1.5-5.0); LYMPH % 13.6 % (24.0-44.0); MEAN CORPUSCULAR HEMOGLOBIN 31.4 pg (27.0-33.0); MEAN CORPUSCULAR HGB CONC 31.6 g/dl (32.0-36.5); MEAN CORPUSCULAR VOLUME 99.5 fl (80.0-96.0); MONO # 0.9 10^3/uL (0.0-0.8); MONO % 8.4 % (2.0-8.0); NEUTROPHILS # 7.4 10^3/uL (1.5-8.5); NEUTROPHILS % 72.3 % (36.0-66.0); PLATELET COUNT, AUTOMATED 263 10^3/uL (150-450); RED BLOOD COUNT 3.95 10^6/uL (4.30-6.10); WHITE BLOOD COUNT 10.3 10^3/uL (4.0-10.0)
[2020-11-12 07:03] LABS: CALCIUM LEVEL 9.2 MG/DL (8.8-10.2); CREATININE FOR GFR 1.86 MG/DL (0.70-1.30); GLOMERULAR FILTRATION RATE 36.9 (>35); POTASSIUM SERUM 3.7 MEQ/L (3.5-5.1)
[2020-11-12] MEDS: FUROSEMIDE 100MG/10ML VIAL (J1940) IV SCH (08:50)
[2020-11-12] MEDS: OXcarbazepine 150 MG TAB PO SCH (08:51)
[2020-11-12] MEDS: LACTOBACILLUS ACIDOPHILUS CAP (BACID) PO SCH (08:51)
[2020-11-12] MEDS: PRAVASTATIN 20 MG TAB PO SCH (08:51)
[2020-11-12] MEDS: APIXABAN 2.5 MG TAB (ELIQUIS) PO SCH (08:51)
[2020-11-12] MEDS: METOPROLOL TART 25 MG TABLET PO SCH (08:52)
[2020-11-12] MEDS ORDERED: PANTOPRAZOLE 40MG TAB (PROTONIX) PO ONE (09:00)
[2020-11-12] MEDS: TORSEMIDE 100 MG TAB PO SCH (12:21)
[2020-11-12 14:00] VITALS: BP 140/80
[2020-11-12] MEDS ORDERED: AUGM500T34 PO (14:02)
[2020-11-12 14:39] VITALS: BP 167/91
--- NOTE | 2020-11-12 16:44 | DS.PDOC ---
Discharge Summary General Date of Admission Nov 11, 2020 at 17:58 Date of Discharge 11/12/20 Discharge Summary PROCEDURES PERFORMED DURING STAY: [None]. DISCHARGE DIAGNOSES: Bilateral Basal pneumonia ? Aspiration Atelectasis Diastolic CHF exacerbation Unspecified chest pain ? musculoskeletal SECONDARY DIAGNOSIS: A. 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 HOSPITAL COURSE: Callum Muse is an 85 year old male with a PMHx of A. 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 Pt clear "it is not pain". Pt reports he was recently in ED for a night a week ago for chest pain w/u. Pt reports he saw cardiology recently and they have ablation planned for his afib. He also complained of coughing and wheezing for the past 2 days and yesterday had blood with his coughing. EKG with Afib, chest x-ray left basilar opacification. He was admitted for bilateral basal pneumonia. He likely had mild fluid overload and Diastolic CHF exacerbation also. Bilateral basal Pneumonia ? aspiration vs Atelectasis. Chest x-ray shows left-sided basilar opacity, possible pneumonia, coupled with patient's leukocytosis will treat for pneumonia. CT chest : Extensive bibasilar infiltrates suspicious for COVID pneumonia. Mediastinal adenopathy. Cardiomegaly.3 mm right upper lobe nodule. COVID negative on 11/10/20 and 11/11/20 Procalcitonin not elevated, No fever, WBC normalized in 1 day. So this is likely Fluid overload and atelectasis. Treated with ceftriaxone and azithromycin. in hospital will give Augmentin on discharge. Will Need Barium swallow. Patient tells me his PMD has scheduled him for a swallow study. Diastolic CHF exacerbation He reports that he has been congested and coughing and wheezing for the past 2 days and yesterday had blood with his coughing. Continue torsemide Right-sided chest pressure Had cardiac cath x 2 last in Jan 2020 no obstructive CAD. Patient denies trauma. Range of motion intact right shoulder/right upper extremity. Troponins not elevated, EKG no ischemic changes. Likely musculoskeletal chest pain from coughing or related to esophagus patient reports that he has been scheduled for a study of esophagus by his pmd Hypertension continue home meds lisinopril, torsemide, metoprolol. Started on Hydralazine as bp was uncontrolled on admission. CKD3: Creatinine appears at baseline. Avoid nephrotoxins as able. Hyperkalemia: resolved. supplementation resumed. Chronic Atrial fibrillation: Patient is rate controlled. Continue with metoprolol and Eliquis Hx of Seizures (Dx: 01/2017): Oxcarbazepine levels pending -continue oxcarbazepine. 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 DISCHARGE MEDICATIONS: Please see below. ALLERGIES: Please see below. PHYSICAL EXAMINATION ON DISCHARGE: VITAL SIGNS: Please see below. General Exam: Positive: Alert, Cooperative, No Acute Distress Eye Exam: Positive: PERRLA, Conjunctiva & lids normal, EOMI; Negative: Sclera icteric ENT Exam: Positive: Atraumatic, Mucous membr. moist/pink, Pharynx Normal Neck Exam: Positive: Supple; Negative: JVD, thyromegaly Chest Exam: Positive: Other (bilateral basal crackles) Heart Exam: Positive: Rate Normal, Irregular Rhythm, Normal S1, Normal S2; Negative: Murmurs, Rubs Telemetry: Positive: Atrial fibrillation Abdomen Exam: Positive: Normal bowel sounds, Soft, Other (+BH); Negative: Tenderness, Hepatospenomegaly Extremity Exam: Positive: Edema; Negative: Clubbing, Cyanosis Skin Exam: Positive: Nl turgor and temperature; Negative: Breakdown, Lesion Neuro Exam: Positive: Normal Gait, Normal Speech, Cranial Nerves 3-12 NL, Reflexes 2+ Psych Exam: Positive: Mental status NL, Mood NL, Oriented x 3, Other (short term memory impairment- trouble word finding; pt at baseline ); Negative: Memory Intact LABORATORY DATA: Please see below. IMAGING: CT chest : There are extensive infiltrates in the lower lungs having appearance consistent with COVID. 3 mm right upper lobe subpleural nodule. Tiny calcified granuloma right upper lobe scattered blebs in both lungs. Heart enlarged. Multiple enlarged mediastinal lymph nodes. Coronary arteries calcified. Adrenal glands not enlarged. IMPRESSION: Extensive bibasilar infiltrates suspicious for COVID pneumonia. Mediastinal adenopathy. Cardiomegaly.. 3 mm right upper lobe nodule. ACTIVITY: [As tolerated]. DIET: 2 gm sodium, fluid restriction 1.8 liters. DISPOSITION: 01 Home, Self-Care. DISCHARGE INSTRUCTIONS: Follow up PMD in 1 week Needs Swallo evaluation DISCHARGE CONDITION: [Stable]. TIME SPENT ON DISCHARGE: 35 minutes. Vital Signs/I&Os Vital Signs Date Time Temp Pulse Resp B/P (MAP) Pulse Ox O2 Delivery O2 Flow Rate FiO2 11/12/20 14:39 167/91 11/12/20 14:00 97.0 69 18 96 Room Air I&O- Last 24 Hours up to 6 AM 11/12/20 07:00 Intake Total 2265 ml Output Total 3300 ml Balance -1035 ml Laboratory Data Labs 24H Laboratory Tests 2 11/12/20 05:44: Immature Granulocyte % (Auto) 0.5, Neutrophils (%) (Auto) 72.3H, Lymphocytes (%) (Auto) 13.6L, Monocytes (%) (Auto) 8.4H, Eosinophils (%) (Auto) 4.5H, Basophils (%) (Auto) 0.7, Neutrophils # (Auto) 7.4, Lymphocytes # (Auto) 1.4L, Monocytes # (Auto) 0.9H, Eosinophils # (Auto) 0.5, Basophils # (Auto) 0.1, Nucleated Red Blood Cells % (auto) 0.0, Anion Gap 6L, Glomerular Filtration Rate 36.9, Calcium Level 9.2 CBC/BMP Laboratory Tests 11/12/20 05:44 Microbiology Microbiology 11/10/20 Blood Culture - Preliminary, Resulted No Growth after 48 hours. All Specime... Discharge Medications Scheduled Amoxicillin/Potassium Clav (Augmentin 500-125 Tablet) 1 Each Tablet, 500 MG PO TID start from 11/13/20 Apixaban (Eliquis) 2.5 Mg Tab, 2.5 MG PO BID, (Reported) Eplerenone (Eplerenone) 50 Mg Tablet, 50 MG PO DAILY, (Reported) Levothyroxine Sodium (Levothyroxine Sodium) 75 Mcg Tablet, 75 MCG PO DAILY, (Reported) Lisinopril (Lisinopril) 20 Mg Tablet, 20 MG PO DAILY, (Reported) Metoprolol Tartrate (Metoprolol Tartrate) 25 Mg Tablet, 25 MG PO BID, (Reported) Oxcarbazepine (Oxcarbazepine) 150 Mg Tab, 300 MG PO BID, (Reported) Potassium Chloride (K-Tab ER) 20 Meq Tab, 20 MEQ PO BID, (Reported) Pravastatin Sodium (Pravastatin Sodium) 20 Mg Tablet, 20 MG PO DAILY, (Reported) Torsemide (Torsemide) 100 Mg Tablet, 100 MG PO DAILY, (Reported) Trazodone HCl (Trazodone HCl) 50 Mg Tab, 25 MG PO QHS, (Reported) Allergies Coded Allergies: spironolactone (Unverified Adverse Reaction, Mild, "BREAST LUMP", 11/10/20) JAMARCUS CROOK MD Nov 12, 2020 16:44
[2020-11-13] MEDS ORDERED: AZITHROMYCIN 250MG TABLET PO SCH (09:00)
[2020-11-13] MEDS ORDERED: PANTOPRAZOLE 40MG TAB (PROTONIX) PO SCH (09:00)
== END 2020-11-12 15:59 | disposition home or self-care (01) | DRG 291 ==
LOC: M ED 22:49 → M ED INP 22:50 → ENRESERV 11-10 04:45 → M MSPAV 11-10 08:57 → OBSVTOIN 11-11 17:58
PROVIDERS: ADMIT Internal Medicine; ATTEND Internal Medicine Nephrology
DX: I13.0 Hypertensive heart and chronic kidney disease with heart failure and stage 1 through stage 4 chronic kidney disease, or unspecified chronic kidney disease (principal); I50.33 Acute on chronic diastolic (congestive) heart failure; J18.9 Pneumonia, unspecified organism; I48.20 Chronic atrial fibrillation, unspecified; J98.11 Atelectasis; Q43.3 Congenital malformations of intestinal fixation; N18.30 Chronic kidney disease, stage 3 unspecified; Z79.01 Long term (current) use of anticoagulants; I25.10 Atherosclerotic heart disease of native coronary artery without angina pectoris; G47.33 Obstructive sleep apnea (adult) (pediatric); G40.909 Epilepsy, unspecified, not intractable, without status epilepticus; E66.9 Obesity, unspecified; N40.0 Benign prostatic hyperplasia without lower urinary tract symptoms; E03.9 Hypothyroidism, unspecified; Z95.2 Presence of prosthetic heart valve; E87.5 Hyperkalemia; Z79.899 Other long term (current) drug therapy; Z88.8 Allergy status to other drugs, medicaments and biological substances; Z86.73 Personal history of transient ischemic attack (TIA), and cerebral infarction without residual deficits; I25.2 Old myocardial infarction

== ENCOUNTER → 2021-01-24 | Outpatient (REF) | payer MEDICARE ==
[~2021-01-24] MED LIST changes: +AUGM500T34 PO; +LISI20TA33 PO
[2021-01-24 18:42] LABS: BASOPHILS 1 % (0-1); LYMPHOCYTES 2 % (16-44); MONOCYTES 5 % (0-5); NEUTROPHILS 91 % (28-66)
[2021-01-24 19:09] LABS: PLATELET ESTIMATE INCREASED (NORMAL)
== END ==
LOC: M LAB REF 16:41
PROVIDERS: ATTEND Internal Medicine
DX: D72.829 Elevated white blood cell count, unspecified (principal)

== ENCOUNTER 2021-01-31 14:40 | Inpatient (IN) | payer MEDICARE ==
[~2021-01-31] VITALS: Ht 177.8 cm; Wt 88.5 kg
[2021-01-31 16:17] LABS: VENOUS BASE EXCESS -3.9 (-2.0-2.0); VENOUS HCO3 22.8 MEQ/L (23.0-27.0); VENOUS O2 SATURATION 79.3 % (60.0-80.0); VENOUS PARTIAL PRESSURE CO2 48.8 mmHg (38.0-50.0); VENOUS PARTIAL PRESSURE O2 51.6 mmHg (30.0-50.0); VENOUS PH 7.287 UNITS (7.330-7.430); VENOUS STANDARD HCO3 20.9 MEQ/L; VENOUS TOTAL CO2 24.3 MEQ/L (24.0-28.0)
[2021-01-31 16:22] LABS: BASO # 0.1 10^3/uL (0.0-0.2); BASO % 0.8 % (0.0-1.0); EOS # 0.5 10^3/uL (0.0-0.5); EOS % 3.4 % (0.0-3.0); HEMATOCRIT 33.3 % (42.0-52.0); HEMOGLOBIN 9.5 g/dl (13.5-17.5); LYMPH # 0.9 10^3/uL (1.5-5.0); LYMPH % 5.8 % (24.0-44.0); MEAN CORPUSCULAR HEMOGLOBIN 26.2 pg (27.0-33.0); MEAN CORPUSCULAR HGB CONC 28.5 g/dl (32.0-36.5); MONO # 1.1 10^3/uL (0.0-0.8); MONO % 7.3 % (2.0-8.0); NEUTROPHILS # 12.2 10^3/uL (1.5-8.5); NEUTROPHILS % 81.8 % (36.0-66.0); PLATELET COUNT, AUTOMATED 499 10^3/uL (150-450); RED BLOOD COUNT 3.62 10^6/uL (4.30-6.10); WHITE BLOOD COUNT 14.9 10^3/uL (4.0-10.0)
--- NOTE | 2021-01-31 16:29 | REP ---
INDICATION: DYSPNEA/COUGH. COMPARISON: Multiple the latest 11/09/2020 also portable TECHNIQUE: Portable FINDINGS: The technique utilized in obtaining the radiograph has magnified the cardiac silhouette and accentuated the interstitial markings. Since the last examination left basilar airspace opacities seen previously have increased. Additionally, new bilateral interstitial and airspace opacities have developed heaviest in the right lower lobe. Once again, there is cardiomegaly accentuated by technique. Since the last examination a dual chamber bipolar pacemaker device has been placed the leads are contiguous and appropriate. The very distal aspect of the ventricular lead is not included on the radiograph. There is no significant change in the osseous structures. IMPRESSION: Findings, as described above, are consistent with pneumonia. Certainly, asymmetric pulmonary edema of a cardiogenic nature could cause findings. <Electronically signed by Fco Horton > 01/31/21 [id number]
[2021-01-31] MEDS ORDERED: AZITHROMYCIN INJ 500 MG, VIAL MATE ADAPTER 1 EACH in NS 250 ML IV ONE (16:35)
[2021-01-31] MEDS ORDERED: cefTRIAXone SOD 2 GM in D5W MINI-BAG PLUS 50 ML IV ONE (16:35)
[2021-01-31 16:53] LABS: RSV AMPLIFICATION NEGATIVE (NEGATIVE)
[2021-01-31 17:01] LABS: ALBUMIN 2.9 GM/DL (3.2-5.2); ALT/SGPT 17 U/L (12-78); BILIRUBIN,DIRECT 0.2 MG/DL (0.0-0.2); BILIRUBIN,TOTAL 0.5 MG/DL (0.2-1.0); CK-MB VALUE MASS 3.6 NG/ML (<3.6); CPK CREATINE PHOSPHOKINASE 41 U/L (39-308); MB/CK RELATIVE INDEX 8.78 (< OR =4); NT-PRO BNP 13817 PG/ML (<450); TOTAL PROTEIN 6.7 GM/DL (6.4-8.2); TROPONIN I < 0.02 NG/ML (< 0.10)
--- NOTE | 2021-01-31 17:44 | REPVR ---
PROCEDURE INFORMATION: Exam: CT Chest Without Contrast; Diagnostic Exam date and time: 01/31/2021 4:54 PM Age: 85 years old Clinical indication: Abnormal findings; Other: Pneumonia on cxr; Additional info: SOB ? pneumonia on cxr TECHNIQUE: Imaging protocol: Diagnostic computed tomography of the chest without contrast. Radiation optimization: All CT scans at this facility use at least one of these dose optimization techniques: automated exposure control; mA and/or kV adjustment per patient size (includes targeted exams where dose is matched to clinical indication); or iterative reconstruction. COMPARISON: CT Chest without contrast 11/10/2020 4:56 PM FINDINGS: Tubes, catheters and devices: A dual lead left subclavian permanent pacemaker is present. The right atrial and right ventricular leads appear to be in good position. Thyroid: The partially imaged bilateral thyroid lobes are unremarkable. Lungs: Multifocal consolidative densities in the bilateral upper lobes, middle lobe, lingula, lesser involvement of the bilateral lower lobes, most confluent in the left upper lobe anterior segment and superior segment of lingula, right upper lobe posterior segment. Right upper lobe calcified pulmonary parenchymal granuloma. Pleural spaces: No pneumothorax. Moderate right pleural effusion. Small left pleural effusion. Heart: Moderate aortic valvular calcification is present. Moderate cardiomegaly. Mitral annular calcification is present. LAD, diagonal and RCA calcified coronary atherosclerosis. Aorta: Moderate aortic arch, branch, and descending thoracic aortic atherosclerotic calcification without ectasia. Lymph nodes: No enlarged lymph nodes. Right hilar granulomatous anaya calcifications are present. Liver: Hepatic left lobe 16.7 mm benign cyst. Gallbladder and bile ducts: The gallbladder is partially contracted. Spleen: A small anterior splenule is present. Kidneys and ureters: Left renal 8.4 mm partially imaged probable hemorrhagic cyst (Bosniak 2). Intestine: Right subdiaphragmatic colonic interposition is present, a normal variant. Bones/joints: Severe L2-L3 degenerative disc disease with moderate spondylosis. Soft tissues: Mild bilateral gynecomastia. IMPRESSION: 1. Multifocal consolidative densities bilaterally. Pneumonitis is difficult to exclude. Clinical correlation is recommended. 2. Moderate right pleural effusion, new. 3. Small left pleural effusion, new. 4. Coronary atherosclerosis. 5. Hepatic benign cyst. No follow-up imaging is recommended. 6. Left renal partially imaged probable hemorrhagic cyst (Bosniak 2). No follow-up imaging is recommended. COMMENTS: Consistent with the [place] [employer]'s Incidental Findings Committee white paper (J Am Esteban Radiol 2018): Any incidental renal lesion less than 1 cm or classified as too small to characterize, or any incidental cystic renal lesion characterized as simple-appearing, is likely benign. No follow-up imaging is recommended for these lesions per consensus recommendations based on imaging criteria. Electronically signed by: Justin Garza On 01/31/2021 17:43:41 PM
[2021-01-31] MEDS ORDERED: FUROSEMIDE 100MG/10ML VIAL (J1940) IV ONE (18:30)
[2021-01-31] MEDS ORDERED: PATIROMER SORBITEX CALCIUM 8.4 GM POWDER PACKET (VELTASSA) PO ONE (18:45)
[2021-01-31] MEDS ORDERED: CALCIUM GLUCONATE 1,000 MG in D5W MINI-BAG PLUS 100 ML IV ONE (18:45)
[2021-01-31] MEDS ORDERED: AMIO200T3 PO (18:54)
[2021-01-31] MEDS ORDERED: PANT40TA29 PO (18:54)
[2021-01-31] MEDS ORDERED: AMLO1TAB24 PO (18:54)
[2021-01-31] MEDS ORDERED: AMOX500T2 PO (18:54)
[2021-01-31] MEDS ORDERED: EPLE25TA PO (18:54)
[2021-01-31] MEDS ORDERED: LISI10TA22 PO (18:54)
[2021-01-31] MEDS ORDERED: METO50TA7 PO (18:54)
[2021-01-31] MEDS ORDERED: HOME MED LIST COMPLETE! XX SCH (18:55)
[2021-01-31] MEDS ORDERED: guaiFENesin ER 600 MG TAB PO PRN (19:05)
[2021-01-31] MEDS ORDERED: IPRATROPIUM 0.5MG/ALBUTEROL 2.5MG INH SOL UD 3ML (DUONEB) NEB PRN (19:05)
--- NOTE | 2021-01-31 19:43 | HPEPDOC ---
General Date of Admission Jan 31, 2021 at 18:40 Date of Service: Jan 31, 2021 Chief Complaint The patient is a 85-year-old male admitted with a reason for visit of Chf (Congestive Heart Failure), Pneumonia. Source: Patient History of Present Illness Callum Muse is an 85 year old male with a PMHx of A. 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 Majority of HPI obtained by patient's daughter and medical proxy, Purvi, and patient's -although limitation to exam as patient's has trouble speaking at times. Patient recently discharged from [facility] after treatment of pneumonia and pacemaker placement. Patient had 2 separate admissions from 01/09-01/15 for complete heart block and permanent pacer placement and then returned 01/16 due to shortness of breath and cough and was treated for pneumonia with Zosyn and discharged 01/22. Upon discharge, pt reportedly "never fully recovered" from his pneumonia. He was started on Augmentin p.o. outpatient by PCP during his follow-up but progressively worsened. Patient has had notable SOB and inc WOB in past 36 hours per . Patient with "wet cough" but nonproductive. Afebrile but reported chills. Patient has been using 3 L nasal cannula nocturnally but due to his shortness of breath he has had to increase to 4 L continuously. Endorses bilateral lower extremity swelling, + orthopnea. Of note, patient did have recent fall to left hip and subsequent bruising. Additionally, patient has pressure injury to bottom and progressive deconditioning over the past few months. Plans for home health nurse and physical therapy to be started. Pt denies mata, sinus congestion, sore throat, palpitations, chest pain, n/v/d, abdominal pain, sensory changes or syncope. He is alert and oriented to self place and situation. He has known history of short-term memory loss given his underlying cognitive impairment since his encephalitis and encephalomalacia. He requires redirection during the admission process and as he becomes more fatigued and begins to display sundowning type behavior. This is not abnormal for pt and family endorses confusion is often exacerbated by illness and hospital admissions. Of note, patient with BTNP 63481, K5.2, creatinine 3.7, lactic 2.3, WBC 14.9, hemoglobin 9.5, pH 7.28, CT chest moderate right pleural effusion and small left pleural effusion, multifocal bilateral upper lobe opacities consistent with pneumonia. Patient will be admitted for further evaluation management presenting concern Home Medications Scheduled Amiodarone HCl (Amiodarone HCl) 200 Mg Tablet, 200 MG PO DAILY, (Reported) Amlodipine Besylate (Amlodipine Besylate) 5 Mg Tablet, 5 MG PO DAILY, (Reported) Amoxicillin/Potassium Clav (Amox-Clav 500-125 mg Tablet) 1 Each Tablet, 500 MG PO BID, (Reported) FOR 7 DAYS, LAST DOSE OF COURSE 01/31 AT BEDTIME Apixaban (Eliquis) 2.5 Mg Tab, 2.5 MG PO BID, (Reported) Eplerenone (Eplerenone) 25 Mg Tablet, 25 MG PO DAILY, (Reported) Levothyroxine Sodium (Levothyroxine Sodium) 75 Mcg Tablet, 75 MCG PO DAILY, (Reported) Lisinopril (Lisinopril) 10 Mg Tablet, 10 MG PO DAILY, (Reported) Metoprolol Tartrate (Metoprolol Tartrate) 50 Mg Tablet, 50 MG PO BID, (Reported) Oxcarbazepine (Oxcarbazepine) 150 Mg Tab, 300 MG PO BID, (Reported) Pantoprazole Sodium (Pantoprazole Sodium) 40 Mg Tablet.dr, 40 MG PO BID, (Reported) Potassium Chloride (K-Tab ER) 20 Meq Tab, 20 MEQ PO BID, (Reported) Pravastatin Sodium (Pravastatin Sodium) 20 Mg Tablet, 20 MG PO DAILY, (Reported) Torsemide (Torsemide) 100 Mg Tablet, 100 MG PO DAILY, (Reported) Trazodone HCl (Trazodone HCl) 50 Mg Tab, 25 MG PO QHS, (Reported) Allergies Coded Allergies: spironolactone (Unverified Adverse Reaction, Mild, "BREAST LUMP", 11/10/20) Past Medical History Medical History A. 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 liver Surgical History Subdural hematoma s/p evacuation, colonoscopy with polypectomy, TURP, tonsillectomy, pacemaker placement Jan 09 Family History Significant Family History: No pertinent family hx Social History * Smoker: Denies Alcohol: Denies Drugs: denies Recent Travel/Sick Contacts: Denies: Recent travel, Recent sick contacts Psychosocial History: No pertinent psych hx A-FIB/CHADSVASC A-FIB History Current/History of A-Fib/PAF?: Yes Current PO Anticoag Therapy: Yes Review of Systems Constitutional: Reports: Chills, Weakness, Fatigue; Denies: Fever, Night Sweats Eyes: Denies: Pain, Vision change ENT: Denies: Head Aches, Ear Pain, Dysphagia Skin: Reports: Bruising, Breakdown; Denies: Rash, Lesions Pulmonary: Reports: Dyspnea, Cough Cardiovascular: Reports: Orthopnea, Edema; Denies: Chest Pain, Palpitations, Paroxysmal Noc. Dyspnea, Lt Headedness Gastrointestinal: Denies: Nausea, Vomiting, Abdominal Pain, Diarrhea Genitourinary: Denies: Dysuria, Frequency, Incontinence, Retention Hematologic: Denies: Bruising, Bleeding Excessively Musculoskeletal: Denies: Neck Pain, Back Pain, Joint Pain, Muscle Pain, Spasms Neurological: Denies: Weakness, Numbness, Change in speech, Confusion Psych: Reports: Mood Normal; Denies: Depression, Memory Issues Physical Examination General Exam: Positive: Alert, Cooperative, No Acute Distress Eye Exam: Positive: PERRLA, Conjunctiva & lids normal, EOMI; Negative: Sclera icteric ENT Exam: Positive: Atraumatic, Mucous membr. moist/pink, Pharynx Normal Neck Exam: Positive: Supple; Negative: JVD, thyromegaly Chest Exam: Positive: Rales Heart Exam: Positive: Irregular Rhythm, Normal S1, Normal S2; Negative: Murmurs, Rubs Telemetry: Positive: Atrial fibrillation Abdomen Exam: Positive: Normal bowel sounds, Soft; Negative: Tenderness, Hepatospenomegaly Extremity Exam: Positive: Edema (1+), Normal pulses; Negative: Clubbing, Cyanosis Skin Exam: Positive: Nl turgor and temperature; Negative: Breakdown, Lesion Neuro Exam: Positive: Normal Gait, Normal Speech Psych Exam: Positive: Mood NL; Negative: Oriented x 3 (ox2) Vital Signs Vital Signs Date Time Temp Pulse Resp B/P (MAP) Pulse Ox O2 Delivery O2 Flow Rate FiO2 01/31/21 16:10 97 26 94 Nasal Cannula 3.0 01/31/21 16:04 126/68 (87) 01/31/21 15:57 98.1 Laboratory Data Labs 24H Laboratory Tests 2 01/31/21 16:05: Immature Granulocyte % (Auto) 0.9, Neutrophils (%) (Auto) 81.8H, Lymphocytes (%) (Auto) 5.8L, Monocytes (%) (Auto) 7.3, Eosinophils (%) (Auto) 3.4H, Basophils (%) (Auto) 0.8, Neutrophils # (Auto) 12.2H, Lymphocytes # (Auto) 0.9L, Monocytes # (Auto) 1.1H, Eosinophils # (Auto) 0.5, Basophils # (Auto) 0.1, Nucleated Red Blood Cells % (auto) 1.2H, Blood Gas Bicarbonate Standard 20.9, Venous Blood pH 7.287L, Venous Blood Partial Pressure CO2 48.8, Venous Blood Partial Pressure O2 51.6H, Venous Blood Total Carbon Dioxide 24.3, Venous Blood HCO3 22.8L, Venous Blood Oxygen Saturation 79.3, Venous Blood Base Excess -3.9L, Lactic Acid Level 2.3*H, Total Bilirubin 0.5, Direct Bilirubin 0.2, Aspartate Amino Transf (AST/SGOT) 21, Alanine Aminotransferase (ALT/SGPT) 17, Alkaline Phosphatase 110, Total Creatine Kinase 41, Creatine Kinase MB 3.6, Creatine Kinase MB Relative Index 8.78H, Troponin I < 0.02, GF-Lhv-R-Type Natriuretic Peptide 07661Q, Total Protein 6.7, Albumin 2.9L, Albumin/Globulin Ratio 0.8, Thyroid Stimulating Hormone (TSH) 3.250, Thyroxine (T4) 9.0, Coronavirus (COVID-19)(PCR) NEGATIVE, Influenza Type A (RT-PCR) NEGATIVE, Influenza Type B (RT-PCR) NEGATIVE, Respiratory Syncytial Virus (PCR) NEGATIVE 01/31/21 16:13: POC Glucose (Misc Panel) 109H, POC Sodium (Misc Panel) 137, POC Potassium (Misc Panel) 5.2H, POC Chloride (Misc Panel) 102, POC Total CO2 (Misc Panel) 25.0, POC Blood Urea Nitrogen (Misc Panel 82H, POC Ionized Calcium (Misc Panel) 4.8, POC Creatinine (Misc Panel) 3.7H, POC Hematocrit (Misc Panel) 34.0L CBC/BMP Laboratory Tests 01/31/21 16:05 Microbiology Microbiology 01/31/21 Blood Culture, Received Pending 01/31/21 Blood Culture, Received Pending Assessment/Plan 1. Dyspnea 2/2 Acute on Chronic DHF and presumed aspiration pneumonia: -Last echo on file may 2020 EF45-50 % -Venous pH acidotic 7.2; will order ABG. Patient does have history of TY and intolerant of CPAP & there may be a hypercapnia component. -Monitor for signs symptoms worsening infection and respiratory status -Oxygen as needed to keep saturations greater than 93%; patient baseline 3LNC nocturnally- now requiring 4LNC continuously. -Fluid balance, Carlene for strict I's and O's. Patient does appear hypervolemic -Plan for diuresis. Consulted with nephrology given patient's TRISTA on CKD with recommendations for Lasix 60 mg IV every 6 hours. -Given the moderate size of the pleural effusion noted on CT chest; planned thoracentesis for a.m. (check co-ags, consider transition to hep gtt/ hold eliquis if requested per interventionalist) -We will place on Vanco and Zosyn for aspiration and recent hospitalization consideration. Consider de-escalation accordingly -As needed breathing treatments -Monitoring creatinine closely a.m. labs 2. Aspiration pneumonia: Patient recently admitted for pneumonia in December at [facility] with concerns for aspiration. He underwent a barium swallow and was reportedly deemed to have no issues with food however with liquids patient would require to sit upright take small sips, no requirement for thickening. -Given patient with worsening pneumonia and possible aspiration will make n.p.o. with aspiration precautions. -Obtain records from [facility] -Appreciate speech recommendations 3. TRISTA on CKD: Baseline creatinine 1.8-2.2 per patient's daughter. Patient has not yet began seeing nephrology per family. Today Cr 3.6; was 2.36 per [facility] documentation on 10/26. -Strict I&Os, Concepcion placed -Avoid nephrotoxins as able -A.m. labs -Appreciate nephrology recommendations. 4. Hyperkalemia: K 5.2, in setting of TRISTA and potassium supplement. Supplement held. Veltassa and Lasix given. -Monitor patient on telemetry and repeat BMP. 5. Anemia: 12.31 october 2020 to 9.5 today, in setting of hematoma left hip and recent pacer placement. -Anemia panel -Monitor for overt bleeding -A.m. labs -Consider differential -We will continue oral AC tomorrow; should there be hemoglobin drop would hold. 6. Encephalopathy in setting of infection: Nonfocal neuro exam. Patient encephalopathic during his admission at [facility] and CT Head recently completed 01/09 nonacute. Patient with history of sundowning, toxic encephalopathy and prone to hospital delirium. -Monitor patient and redirect/reorient -Anticipate improvement with treatment above 7. A. fib: Patient presently rate controlled. Pt s/p pacer on 01/09 after complete heart block (hr 20s) and high dose amio in anticipation for cardioversion. Pt next cardiology appointment would be Thursday. -Tele monitoring -Continue amiodarone and lopressor 8. HTN: Monitor BP in setting of above. -Home lisinopril and norvasc held given above 9. Hypothyroidism: TSH and T4 within normal limits. Continue levothyroxine. 10. Hematoma left hip status post fall: Witnessed by family Patient without LLE deformity and denies complaints. No limitation to range of motion other than related to generalized deconditioning and weakness. Monitor site, yeni margins -Fall precautions -Monitor H&H given patient is on anticoagulation and anemia -PT eval and treatment for therapeutic purposes patient deconditioned 11. Pressure injury sacrum/buttock: There is a component of possible excoriation to the lower groin area where the buttocks meet upper thighs. -Encourage repositioning every 2 hours -Patient has Concepcion which will help decrease moisture associated skin damage -Site care, protective barrier cream -wound care monitoring per policy 12. Sundowning in patient with history of encephalitis/residual lesions and baseline cognitive impairment: -Redirect/reorient. -De-escalation techniques accordingly. -Delirium precautions. -Encourage patient family centered care model and family to be at bedside as this helps orient and reassure patient. -As needed medication to be determined if patient were to become agitated DVT prophylaxis: SCDs and Eliquis CODE STATUS: Full code. Patient is however patient's daughter is elected healthcare surrogate her name is Purvi and she can be reached at [phone] Disposition planning: Anticipate at least 2 midnight stay Plan / VTE VTE Prophylaxis Ordered?: Yes EVELIO KONG NP Jan 31, 2021 19:21
[2021-01-31 19:59] LABS: CALCIUM LEVEL 9.1 MG/DL (8.8-10.2); CREATININE FOR GFR 3.78 MG/DL (0.70-1.30); GLOMERULAR FILTRATION RATE 16.3 (>35); POTASSIUM SERUM 5.4 MEQ/L (3.5-5.1)
[2021-01-31] MEDS ORDERED: DOXYCYCLINE HYCLATE 100 MG in D5W MINI-BAG PLUS 100 ML IV SCH (21:00)
[2021-01-31] MEDS ORDERED: APIXABAN 2.5 MG TAB (ELIQUIS) PO SCH (21:00)
[2021-01-31] MEDS ORDERED: diphenhydrAMINE 50MG/ML VIAL (J1200) IV PRN (22:45)
[2021-02-01] MEDS: traZODone 25MG PER 1/2 TABLET PO SCH ×3 (00:01→22:31)
[2021-02-01] MEDS: PANTOPRAZOLE 40MG TAB (PROTONIX) PO SCH ×4 (00:02→21:01)
[2021-02-01] MEDS: OXcarbazepine 150 MG TAB PO SCH ×4 (00:04→22:33)
[2021-02-01] MEDS: METOPROLOL TART 50 MG TAB PO SCH ×4 (00:05→22:32)
[2021-02-01] MEDS ORDERED: FUROSEMIDE 100MG/10ML VIAL (J1940) IV SCH (02:30)
[2021-02-01] MEDS ORDERED: OLANZapine INTRAMUSCULAR 10MG VIAL IM PRN (02:55)
[2021-02-01 03:18] LABS: ABG BASE EXCESS -2.8 (-2.0-2.0); ABG HCO3 21.6 MEQ/L (22.0-26.0); ABG O2 SATURATION 92.1 % (95.0-99.0); ABG PARTIAL PRESSURE O2 66.6 mmHg (75.0-100.0); ABG TOTAL CO2 22.7 MEQ/L (23.0-31.0); ABG pH (ARTERIAL) 7.396 UNITS (7.350-7.450)
[2021-02-01] MEDS ORDERED: OLANZapine INTRAMUSCULAR 10MG VIAL IM ONE (04:20)
[2021-02-01] MEDS ORDERED: LORazepam 2 MG/ML VIAL IV PRN (05:10)
[2021-02-01] MEDS: IPRATROPIUM 0.5MG/ALBUTEROL 2.5MG INH SOL UD 3ML (DUONEB) NEB PRN (05:58)
[2021-02-01] MEDS: PIPERACILLIN/TAZOBACTAM SOD 3.375 GM in D5W MINI-BAG PLUS 50 ML IV SCH ×3 (06:00→20:59)
[2021-02-01] MEDS: LEVOTHYROXINE 75MCG TABLET (0.075MG) PO SCH (06:00)
[2021-02-01 06:34] LABS: BASO # 0.1 10^3/uL (0.0-0.2); BASO % 0.7 % (0.0-1.0); EOS # 0.4 10^3/uL (0.0-0.5); EOS % 2.7 % (0.0-3.0); HEMATOCRIT 32.6 % (42.0-52.0); HEMOGLOBIN 9.2 g/dl (13.5-17.5); LYMPH % 7.7 % (24.0-44.0); MEAN CORPUSCULAR HEMOGLOBIN 25.9 pg (27.0-33.0); MEAN CORPUSCULAR HGB CONC 28.2 g/dl (32.0-36.5); MEAN CORPUSCULAR VOLUME 91.8 fl (80.0-96.0); MONO # 1.2 10^3/uL (0.0-0.8); MONO % 8.9 % (2.0-8.0); NEUTROPHILS # 10.5 10^3/uL (1.5-8.5); PLATELET COUNT, AUTOMATED 443 10^3/uL (150-450); RED BLOOD COUNT 3.55 10^6/uL (4.30-6.10); WHITE BLOOD COUNT 13.3 10^3/uL (4.0-10.0)
[2021-02-01 06:45] LABS: INR 1.82; PROTHROMBIN TIME 21.5 SECONDS (12.7-14.5)
[2021-02-01 06:46] LABS: PARTIAL THROMBOPLASTIN TIME 47.9 SECONDS (25.9-37.0)
[2021-02-01 07:06] LABS: BLOOD UREA NITROGEN 78 MG/DL (7-18); CALCIUM LEVEL 9.1 MG/DL (8.8-10.2); CARBON DIOXIDE LEVEL 25 MEQ/L (21-32); CHLORIDE LEVEL 102 MEQ/L (98-107); CK-MB VALUE MASS 3.7 NG/ML (<3.6); CPK CREATINE PHOSPHOKINASE 51 U/L (39-308); CREATININE FOR GFR 3.99 MG/DL (0.70-1.30); FERRITIN 43 NG/ML (26-388); GLOMERULAR FILTRATION RATE 15.3 (>35); GLUCOSE, FASTING 128 MG/DL (70-100); IRON (FE) 22 UG/DL (65-175); MAGNESIUM LEVEL 2.5 MG/DL (1.8-2.4); MB/CK RELATIVE INDEX 7.25 (< OR =4); PERCENT SATURATION 7.6 % (19.7-50.0); SODIUM LEVEL 138 MEQ/L (136-145); TOTAL IRON BINDING CAPACITY 288 UG/DL (250-450); TROPONIN I < 0.02 NG/ML (< 0.10)
[2021-02-01] MEDS: FUROSEMIDE 40MG/4ML VIAL (J1940) IV SCH ×3 (07:46→23:08)
[2021-02-01 08:13] LABS: ABG HCO3 21.2 MEQ/L (22.0-26.0); ABG O2 SATURATION 91.8 % (95.0-99.0); ABG PARTIAL PRESSURE CO2 39.2 mmHg (35.0-45.0); ABG PARTIAL PRESSURE O2 67.4 mmHg (75.0-100.0); ABG TOTAL CO2 22.4 MEQ/L (23.0-31.0); ABG pH (ARTERIAL) 7.351 UNITS (7.350-7.450)
--- NOTE | 2021-02-01 08:31 | REP ---
INDICATION: sob. COMPARISON: 01/31/2021. TECHNIQUE: Single portable AP view of the chest was performed. FINDINGS: Diffuse bilateral infiltrates appear unchanged. The heart and mediastinum are unchanged. There is left 2 lead pacemaker again noted. IMPRESSION: Stable exam. <Electronically signed by Chris Juarez > 02/01/21 [id number]
[2021-02-01] MEDS: AMIODARONE 200 MG TAB (PACERONE) PO SCH (09:27)
[2021-02-01] MEDS: PRAVASTATIN 20 MG TAB PO SCH (09:27)
[2021-02-01] MEDS ORDERED: ALPRAZolam 0.25 MG TAB PO ONE (10:45)
[2021-02-01] MEDS ORDERED: metOLazone 5 MG TAB PO ONE (12:00)
[2021-02-01 12:22] LABS: ABG BASE EXCESS -2.7 (-2.0-2.0); ABG HCO3 22.3 MEQ/L (22.0-26.0); ABG O2 SATURATION 95.1 % (95.0-99.0); ABG PARTIAL PRESSURE CO2 39.3 mmHg (35.0-45.0); ABG PARTIAL PRESSURE O2 81.6 mmHg (75.0-100.0); ABG STANDARD HCO3 22.2 MEQ/L (22.0-26.0); ABG TOTAL CO2 23.5 MEQ/L (23.0-31.0); ABG pH (ARTERIAL) 7.372 UNITS (7.350-7.450)
[2021-02-01 12:44] LABS: CHOLESTEROL LEVEL 119 MG/DL (<200); CHOLESTEROL RISK RATIO 4.576 (<5); HDL CHOLESTEROL 26 MG/DL (>40); LDL CHOLESTEROL 78 MG/DL (<100); NON-HDL-C 93 MG/DL; TRIGLYCERIDES LEVEL 75 MG/DL (<150)
[2021-02-01 12:47] LABS: HEPATITIS B SURFACE ANTIBODY NEGATIVE (POSITIVE)
--- NOTE | 2021-02-01 12:53 | ROOPDOC ---
[facility] Report Of Operation Report of Operation DATE OF PROCEDURE: 02/01/21 PROCEDURE PERFORMED: trialysis catheter insertion into right internal jugular vein PREPROCEDURE DIAGNOSES: TRISTA, pulmonary edema, hypoxic respiratory failure POSTPROCEDURE DIAGNOSES: TRISTA on CKD, pulmonary edema, hypoxic respiratory failure SURGEON: Dr Zaheer MD Consent: from Thea Muse (daughter, FAY) ANESTHESIA: Local lidocaine 1% without epi ESTIMATED BLOOD LOSS: Approximately 2 mL. COMPLICATIONS: none DESCRIPTION OF PROCEDURE: A time out was performed. My hands were washed immediately prior to the procedure. I wore a surgical cap, mask with protective eyewear, full gown and sterile gloves throughout the procedure. The patient was placed in Trendelenburg position. Right neck and chest region was prepped using chlorhexidine scrub and draped in sterile fashion using a full drape and sterile probe cover and sterile gel employed. The medial and lateral heads of the sternocleidomastoid muscle were identified as was the carotid pulse. The Internal Jugular vein was identified using the ultrasound. Anesthesia was achieved over the vein using 1% lidocaine. Using real-time out of plane guidance, the introducer needle was inserted into the Internal Jugular vein under direct ultrasound visualization. Venous blood was withdrawn. The syringe was removed and a guidewire was advanced into the introducer needle. The guidewire was visualized in the Internal Jugular Vein by ultrasound. A small incision was made at the skin surface with a scalpel and the introducer needle was exchanged for a dilator over the guidewire. After appropriate dilation was obtained, the dilator was exchanged over the wire for a 14Fr Trialysis cathet er. The wire was removed and the catheter was sutured in place at 15 cm. A sterile sorbaview shield was placed over the catheter at the insertion site. The patient tolerated the procedure without any hemodynamic compromise. At time of procedure completion, all ports aspirated and flushed properly. Post- procedure chest x-ray showed proper placement of catheter with no PTX. Kristie mated blood loss is 2cc. MARGA LORA MD Feb 01, 2021 12:53
[2021-02-01 12:58] LABS: HEPATITIS B SURFACE ANTIGEN NEGATIVE (NEGATIVE)
--- NOTE | 2021-02-01 13:05 | REP ---
INDICATION: POST PROCEDURE. COMPARISON: Multiple the latest earlier today at 7:51 a.m. TECHNIQUE: Portable FINDINGS: The technique utilized in obtaining the radiograph has magnified the cardiac silhouette and accentuated the interstitial markings. Since the last examination a right-sided internal jugular central venous catheter has been placed the tip of which is in the superior vena cava. The cardiomediastinal silhouette lung [place] are unchanged. Diffuse bilateral interstitial and airspace opacities are noted status quo. The pacemaker devices unchanged. The osseous structures are unchanged. IMPRESSION: No significant change compared to the prior exam other than recent line placement as described above. <Electronically signed by Fco Horton > 02/01/21 [id number]
[2021-02-01 13:26] LABS: HEPATITIS B CORE ANTIBODY IGM NEGATIVE (NEGATIVE)
[2021-02-01 13:32] LABS: HEMOGLOBIN A1c 5.7 %
[2021-02-01] MEDS ORDERED: SODIUM CHLORIDE 0.9% 1000ML IV PRN (13:40)
[2021-02-01 13:57] LABS: CK-MB VALUE MASS 4.8 NG/ML (<3.6); MB/CK RELATIVE INDEX 6.15 (< OR =4); TROPONIN I 0.02 NG/ML (< 0.10)
--- NOTE | 2021-02-01 15:34 | CR ---
CONSULTATION DATE: 02/01/2021 REQUESTING PHYSICIAN: KLARISSA STALLWORTH MD REASON FOR CONSULTATION: Acute renal failure superimposed on CKD Stage IV and fluid overload with hypoxic respiratory failure. HISTORY OF PRESENT ILLNESS: Mr. Callum Muse is previously unknown to me. He is an 85-year-old male with a past medical history of CKD Stage IIIB borderline Stage IV with baseline GFR around 20s and end up to 30 ml/minute and also concurrent history of congestive heart failure (an echocardiogram in May 2020 with left ventricular ejection fraction of 45%, severe pulmonary hypertension, moderate tricuspid regurgitation). Also, past medical history of atrial fibrillation on Eliquis, coronary artery disease, sleep apnea with nocturnal oxygen use, history of herpes encephalitis, history of seizures, subdural hematoma status post evacuation, short-term impairment, mild cognitive impairment, obesity and other comorbid conditions mentioned below. History was obtained from chart review and discussion with the patient's daughter, Purvi ([phone]). Purvi tells me that patient was admit for septic shock in October of this year at [facility] and had concurrent renal failure and required temporary dialysis for about 2-3 treatments. He had recurrent admissions in December for heart block and pacemaker placement and the patient was also recently treated for pneumonia. He has been unwell at home since his last discharge with progressive fluid retention and increasing shortness of breath. He was using his nocturnal oxygen continuously because of dyspnea and had ongoing and progressive peripheral edema. I saw the patient this morning in the Emergency Room and he was noted to be visibly short of breath and was oriented only to person. Initial saturation on arrival was 88%. The patient is on 3 to 4 liters of oxygen at the time of my visit and pending transition to Vapotherm. He received 220 mg of IV Lasix thus far overnight in the Emergency Room and has had poor urine output. Laboratory studies reveal leukocytosis, lactic acidosis, renal failure and hyperkalemia. Creatinine is 3.99 with BUN of 78 and the patient's BNP is elevated at 13,800. CT of the chest shows new bilateral pleural effusions. Renal imaging has not resulted. He does have a Concepcion catheter in place. Nephrology evaluation was requested for help in the treatment of renal failure in this patient with fluid overload and hypoxic respiratory failure. PAST MEDICAL HISTORY: CKD Stage IIIB, borderline Stage IV with recent temporary hemodialysis in October of this year in the setting of septic shock, atrial fibrillation on chronic Eliquis anticoagulation, systolic congestive heart failure, severe pulmonary hypertension, moderate tricuspid regurgitation, coronary artery disease, sleep apnea, nocturnal oxygen dependent, history of herpes encephalitis, history of seizures, subdural hematoma status post evacuation, short-term memory impairment, mild cognitive impairment, BPH, iron deficiency anemia, heart block status post pacemaker, hypothyroidism, GERD. PAST SURGICAL HISTORY: Subdural hematoma, colonoscopy with polypectomy, TURP, tonsillectomy, pacemaker placement, temporary dialysis catheter placement. FAMILY HISTORY: Unobtainable. ALLERGIES: Spironolactone. SOCIAL HISTORY: He lives with his in [place], nonsmoker, no alcohol, no drugs. HOME MEDICATIONS: 1. Amiodarone 200 mg p.o. daily. 2. Amlodipine 5 mg p.o. daily. 3. Augmentin 500 mg p.o. b.i.d. 4. Eliquis 2.5 mg p.o. b.i.d. 5. Eplerenone 25 mg p.o. daily. 6. Levothyroxine 75 mcg p.o. daily. 7. Lisinopril 10 mg p.o. daily. 8. Metoprolol 50 mg p.o. b.i.d. 9. Oxcarbazepine 300 mg p.o. twice daily. 10.Protonix 40 mg p.o. b.i.d. 11.Potassium chloride 20 mEq p.o. b.i.d. 12.Torsemide 100 mg p.o. daily. 13.Pravastatin 20 mg p.o. daily. 14.Trazodone 25 mg p.o. q.h.s. REVIEW OF SYSTEMS: Unable to obtain secondary to clinical condition. PHYSICAL EXAMINATION: VITAL SIGNS: Temperature 98.6, pulse is 92, respiratory rate is 22, blood pressure is 137/81, saturating 94% on 3 liter nasal cannula. INPUT AND OUTPUT: Urine output since admission is 500 ml. GENERAL APPEARANCE: Patient is seen in the Emergency Room, elderly male, somewhat lethargic appearing but arousable to verbal and tactile stimulus, is able to state his name but does not answer other simple questions appropriately. HEENT: Extraocular muscles are intact. Tongue is moist. NECK: Jugular veins are elevated. HEART: Heart sounds are irregular. There is 2+ peripheral edema. LUNGS: Diminished breath sounds with bibasilar crackles. There is mild tachypnea. He looks mildly short of breath. ABDOMEN: Soft and obese. He does not grimace to palpation. GENITOURINARY: Indwelling Concepcion catheter with minimal urine. EXTREMITIES: 2+ edema, pitting bilaterally in the legs. SKIN: There is a healed pacemaker incision on the left chest wall. He follows simple commands but is noted to be somewhat restless trying to pull on some of his lines and Concepcion catheter. LABORATORY DATA: Sodium 138, potassium is 5.0, bicarbonate 25, BUN 78, creatinine 3.99. Lactic acid 3.1. Magnesium 2.5. Iron 22, transferrin saturation 7%. Troponin is negative. Hemoglobin 9.2, platelets 443,000, white count 13.3, blood gas at 12 p.m. today: pH 7.37, pCO2 39, pO2 81. Blood cultures are pending. CT of the chest non-contrast done yesterday shows a new moderate right pleural effusion, a new small left pleural effusion and multifocal consolidative densities bilaterally. INPATIENT MEDICATIONS: 1. Ceftriaxone 2 grams IV x1. 2. Zosyn 3.375 grams IV q. 6 hourly. 3. Zithromax 500 mg IV x1. 4. DuoNeb q. 6 hourly. 5. Xanax 0.25 mg p.o. x1. 6. Amiodarone 200 mg p.o. daily. 7. Lasix. He has thus far received 220 mg intravenously. 8. Lorazepam 0.25 mg IV q. 12 hourly p.r.n. agitation. 9. Synthroid 75 mcg p.o. daily. 10.Metoprolol 50 mg p.o. b.i.d. 11.Trileptal 300 mg p.o. b.i.d. 12.Zyprexa 5 mg intramuscular x1. 13.Protonix 40 mg p.o. b.i.d. 14.Veltassa 8.4 grams p.o. x1. 15.Trazodone 25 mg p.o. q.h.s. 16.Pravastatin 20 mg p.o. daily. PROBLEMS: 1. Acute renal failure superimposed on CKD Stage IIIB borderline Stage IV in this patient with fluid overload and hypoxic respiratory failure. Patient recently had an episode of acute kidney injury in the setting of septic shock in October of 2020 while at [facility] and had temporary hemodialysis at that time. I discussed with his daughter Purvi today regarding likelihood that he may not recover renal function again this time and may need chronic hemodialysis going forward. I was unable to discuss dialysis with the patient himself because of his clinical condition, however his daughter did understand his current state and was agreeable for dialysis initiation. He received more than 220 mg of IV Lasix in the Emergency Room with insufficient diuretic response and has increasing oxygen requirements and I would not wait another day to begin optimizing his volume status, hence plan is for dialysis catheter and first dialysis treatment this afternoon. 2. Decompensated systolic congestive heart failure with fluid overload refractory to diuretics in the setting of concomitant renal failure. An echocardiogram from May of this year showed left ventricular ejection fraction of about 45%. Patient has new bilateral pleural effusions and increasing peripheral edema and BNP of about 14,000 and has increasing oxygen requirements. He is going to be dialyzed this afternoon with goal fluid removal of 2 liters and he will be reevaluated for dialysis needs again tomorrow. 3. Acute on chronic hypoxic respiratory failure. The patient is in fluid overload and decompensated systolic CHF with concomitant renal failure. He was using his nocturnal oxygen continuously at home. He is having increasing oxygen requirements in the Emergency Room. He had inadequate diuretic response. His creatinine is almost 4. He will have dialysis this afternoon. He previously had temporary dialysis in October and he is most likely going to need chronic dialysis going forward for control of his volume status but we will see how his clinical course progresses. The primary team is also treating him for probable pneumonia. He had elevated white count, blood cultures are pending. CT of the chest showed new bilateral pleural effusions and also multifocal consolidative opacities on both lungs. 4. Iron deficiency anemia. We will give him IV iron once his blood cultures return back. 5. Hyperkalemia, it is mild and will be managed with hemodialysis. 6. Lactic acidosis in the setting of decompensated CHF. Patient's mean arterial pressures have been stable and 80s to 90s. Lactic acidosis will improve with dialysis and we will try to take off two liters with his treatment today. 7. Atrial fibrillation, patient is rate controlled with beta shekhar and he is chronically anticoagulated with low dose Eliquis. 8. Altered mentation. I have requested that the patient have a 1:1 sitter at the bedside today during his dialysis treatment.
[2021-02-01] MEDS ORDERED: cefTRIAXone SOD 1 GM in D5W MINI-BAG PLUS 50 ML IV SCH (17:00)
--- NOTE | 2021-02-01 17:04 | IPN ---
PROGRESS NOTE DATE: 02/01/2021 SUBJECTIVE: Patient is in moderate distress with use of respiratory accessory muscles, JVD at the bedside, confused this morning. No fever or chills, has a slight cough which is non-productive. Patient only put out 600 mL of urine after 160 mg of intravenous Lasix. Nephrology was consulted yesterday and had increased Lasix to 120 mg I.V. q8h. OBJECTIVE: Vital signs: Temperature 98.6, pulse 95, respiratory rate 22, blood pressure 135/80, 95% on 6 liters nasal cannula at the bedside. General: Patient is lethargic, does not questions. He has moderate respiratory distress. There is positive use of respiratory accessory muscles. HEENT: Dry mucous membranes. Neck: Positive JVD, no thyromegaly. Patient has a well healed scar in the left clavicle. Lungs: Diminished, bilateral rales, in moderate distress, positive use of respiratory accessory muscles and conversational dyspnea of 4-5 words. Heart: S1 and S2 sinus rhythm, pacemaker in left anterior chest. Abdomen: Soft, nontender, nondistended, positive bowel sounds. Extremities: Positive edema bilaterally. LABORATORY DATA: White count 13.3, hemoglobin 9.2, hematocrit 32; previously hemoglobin of 9.5, hematocrit of 33, platelet count of 443. Lactic acid is 2.7. Sodium 139, potassium 5, chloride 102, bicarb 25, BUN 78, creatinine 3.99, glucose 128. Troponin less than 0.02. 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 Patient was admitted for decompensated congestive heart failure as well as pneumonia, given intravenous Lasix 100 mg initially then 60 mg with 600 mL of urine output overnight with worsening respiratory distress. He was given ceftriaxone was changed to Zosyn yesterday for broader coverage. CURRENT ISSUES/PLAN: 1. Acute decompensated congestive heart failure with preserved systolic function, diastolic dysfunction: Patient is in severe distress with minimal output of only 600 mL out despite 160 mg of intravenous Lasix. Patient is currently on 120 mg of I.V. q8h of Lasix, strict I&Os, daily weights and 2 liter fluid restriction. Nephrology has been consulted. Per the family patient needed dialysis during his previous hospital admission at [facility] in [place]. Deferred to nephrology to talk to the family regarding possible need for dialysis today. Patient does not have metabolic acidosis or hyperkalemia. We will obtain an arterial blood gas to see if he would benefit from BiPAP otherwise increase the oxygen until patient diuresis well to keep saturations above 90%. 2. Chronic atrial fibrillation: Currently rate controlled and sinus rhythm. Amiodarone 200 daily and metoprolol 50 mg twice a day. He is currently on Eliquis 2.5 twice a day may need to hold temporarily for a dialysis catheter to be placed. 3. Hyperkalemia: Status post VELTASSA 4. Community acquired pneumonia bilaterally: Currently on broad spectrum with Zosyn. 5. Hypothyroidism: On Synthroid. 6. History of seizures: On chronic Trileptal. 7. Disposition: May need to be transferred to ICU for BiPAP as patient has respiratory acidosis on ABG. CODE STATUS: Patient is a Full Code. Patient's Code Status has been confirmed with the patient's and daughter. Daughter's phone number is [phone]; 's phone number at home is [phone]. [facility]
[2021-02-01 19:00] VITALS: O2SAT 95
[2021-02-01 19:07] VITALS: BP 132/76
--- NOTE | 2021-02-01 19:23 | REP ---
INDICATION: john. COMPARISON: 06/20/2020 TECHNIQUE: Grayscale renal sonography. FINDINGS: The right kidney is 9.7 x 5.6 x 5 cm and shows hyperechoic cortex. There is some sinus lipomatosis and echogenic vessels are present. No hydronephrosis or hydroureter noted. 1.2 x 1 x 0.8 cm upper pole cyst and a 2.4 x 2.3 x 2 cm lower pole cyst on the right side. The left kidney is 8.8 x 5.2 x 5.5 cm. It also has hyperechoic cortex with some areas of cortical thinning and lobation. Upper pole as a 2.1 x 1.9 x 2.5 cm cyst in there is an interpolar cyst 1.5 x 1.3 x 1.4 cm. No solid mass, stone hydronephrosis or hydroureter on that side. Concepcion catheter is in place and not clamped therefore bladder cannot be evaluated. The technologist notes the exam was limited due to patient's difficulty following commands, movements and inability to cooperate. IMPRESSION: 1. Interval atrophy of the kidneys with the right kidney 9.7 cm, previously 10.5 and the left kidney 8.8 cm, previously 11.1 cm in May 2020. 2. Medical renal disease with increased cortical echogenicity. There are bilateral cortical cysts. No hydronephrosis, any definite solid mass or stone. <Electronically signed by Estevan Lobato > 02/01/211919
[2021-02-01 20:00] VITALS: O2SAT 94
--- NOTE | 2021-02-01 20:43 | ECGEPIP ---
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
[2021-02-01 21:00] VITALS: O2SAT 91
[2021-02-01 23:00] VITALS: O2SAT 96
[2021-02-02] VITALS (15 sets, daily range): BP systolic 107–144; BP diastolic 51–64; O2SAT 93–98
[2021-02-02] MEDS: PIPERACILLIN/TAZOBACTAM SOD 3.375 GM in D5W MINI-BAG PLUS 50 ML IV SCH ×4 (02:59→21:29)
[2021-02-02] MEDS: LEVOTHYROXINE 75MCG TABLET (0.075MG) PO SCH (05:04)
[2021-02-02 05:27] LABS: BASO # 0.1 10^3/uL (0.0-0.2); BASO % 0.7 % (0.0-1.0); EOS # 0.6 10^3/uL (0.0-0.5); EOS % 5.4 % (0.0-3.0); HEMATOCRIT 29.9 % (42.0-52.0); HEMOGLOBIN 8.6 g/dl (13.5-17.5); LYMPH % 8.9 % (24.0-44.0); MEAN CORPUSCULAR HEMOGLOBIN 25.7 pg (27.0-33.0); MEAN CORPUSCULAR HGB CONC 28.8 g/dl (32.0-36.5); MEAN CORPUSCULAR VOLUME 89.3 fl (80.0-96.0); MONO % 8.4 % (2.0-8.0); NEUTROPHILS # 8.8 10^3/uL (1.5-8.5); NEUTROPHILS % 75.7 % (36.0-66.0); RED BLOOD COUNT 3.35 10^6/uL (4.30-6.10); WHITE BLOOD COUNT 11.6 10^3/uL (4.0-10.0)
[2021-02-02 05:51] LABS: PLATELET COUNT, AUTOMATED 304 10^3/uL (150-450)
[2021-02-02 05:53] LABS: CALCIUM LEVEL 8.7 MG/DL (8.8-10.2); CREATININE FOR GFR 2.64 MG/DL (0.70-1.30); GLOMERULAR FILTRATION RATE 24.7 (>35); MAGNESIUM LEVEL 2.2 MG/DL (1.8-2.4)
--- NOTE | 2021-02-02 08:23 | REP ---
INDICATION: sob. COMPARISON: AP CXR 02/01/2021, 01/31/2021; CT 01/31/2021 TECHNIQUE: AP portable seated FINDINGS: Right jugular central venous catheter again seen with tip in the SVC. Dual lead pacer with lead tips in the right atrium and right ventricle again noted. Extensive alveolar and interstitial infiltrates in both lung [place] with pleural effusions again seen. There is cardiomegaly with left atrial and ventricular enlargement. The aorta is calcified at the arch and tortuous. Do not see a pneumothorax. Bones are unchanged. IMPRESSION: 1. Extensive bilateral alveolar and interstitial infiltrates/edema with bilateral effusions again seen. The appearance is unchanged. 2. Cardiomegaly with left atrial and ventricular enlargement. 3. Lines and tubes unchanged. <Electronically signed by Estevan Lobato > 02/02/21 [id number]
[2021-02-02] MEDS ORDERED: APIXABAN 2.5 MG TAB (ELIQUIS) PO ONE (09:00)
[2021-02-02] MEDS: FUROSEMIDE 40MG/4ML VIAL (J1940) IV SCH ×2 (10:06→18:58)
[2021-02-02] MEDS: PRAVASTATIN 20 MG TAB PO SCH (10:07)
[2021-02-02] MEDS: OXcarbazepine 150 MG TAB PO SCH ×2 (10:08→21:26)
[2021-02-02] MEDS: PANTOPRAZOLE 40MG TAB (PROTONIX) PO SCH ×2 (10:08→21:28)
--- NOTE | 2021-02-02 10:26 | IPN ---
PROGRESS NOTE DATE: 02/02/2021 SUBJECTIVE: Patient said that his breathing has improved. He still has a cough. He is very tired and weak. No nausea or vomiting. OBJECTIVE: Vital signs: Temperature 96.4, pulse 82, respiratory rate 20, blood pressure 134/64, 99% on high flow oxygen 4 liters nasal cannula. General: Patient is lethargic. HEENT: Dry mucous membranes. Neck: Positive JVD. No thyromegaly. Right dialysis catheter, no tenderness, erythema or induration, no crepitus. Lungs: Diminished, bilateral rales. Heart: S1 and S2 regular rate and rhythm. Abdomen: Soft, nontender, nondistended. Extremities: Positive pitting edema bilaterally 2+. LABORATORY DATA/IMAGING STUDIES/MICROBIOLOGY: Have been reviewed. ASSESSMENT: This 85-year-old male with history of chronic kidney disease stage 3-4, baseline GFR 20-30, previous history if systolic and diastolic heart failure, EF of 45% with severe pulmonary hypertension, moderate tricuspid regurgitation, afib, CAD, sleep apnea on oxygen, herpes encephalitis, seizures, subdural hematoma with evacuation, mild cognitive impairment, obesity admitted due to respiratory distress with prior admission to [facility] in October due to septic shock, required temporarily dialysis 2-3 treatments and recurrent admissions in December due to heart block and pacemaker placement as well as treatment for pneumonia. Patient was found to be severely hypoxic required Vapotherm with minimal urine output despite 220 mg of intravenous Lasix with increased creatinine to 3.99, BNP of 13,000. CT chest showed bilateral pleural effusions. Concepcion catheter was placed. Renal ultrasound had no hydronephrosis. Dialysis catheter was placed by Intensive Care physician Dr. Buck. Patient underwent emergency dialysis. Also being treated for pneumonia. IMPRESSIONS: 1. Acute hypoxic respiratory failure secondary to decompensated acute on chronic systolic and diastolic heart failure. 2. Acute systolic and diastolic congestive heart failure, ejection fraction 45%. 3. Acute on chronic kidney disease stage 4 requiring emergency dialysis. 4. Multifocal pneumonia most likely due to congestive heart failure, but being treated with antibiotics. 5. Iron deficiency anemia. 6. Hyperkalemia. 7. Lactic acidosis. 8. Atrial fibrillation. 9. Acute metabolic encephalopathy due to CHF, pneumonia and worsening renal failure. 10. Anemia of chronic disease. Defer to nephrology for I.V. Venofer. 11. Hypothyroidism. 12. History of seizures. PLAN: Patient is still quite hypoxic, but improved significantly from yesterday. Dialysis per nephrology. Patient is to keep O2 saturations at 90% and higher to 92%. Rate controlled afib with metoprolol and amiodarone currently sinus rhythm. Eliquis was temporarily held yesterday due to dialysis catheter placement and may be resumed today. Patient's hyperkalemia resolved with dialysis. Continue with strict I&Os and daily weights. Due to altered mental status and risk of aspiration speech therapy was consulted yesterday. He remains n.p.o. Once mentation is improved may resume on oral diet if no signs of aspiration. Recommendation from speech therapy is modified barium swallow on Thursday. MTDD
--- NOTE | 2021-02-02 13:44 | IPN ---
NEPHROLOGY PROGRESS NOTE DATE: 02/02/2021 SUBJECTIVE: Mr. Muse is seen this morning on his bedside. He is feeling much better today; however, remains on 4 liters of oxygen. He was dialyzed yesterday due to advanced renal failure and acute respiratory distress with congestive heart failure. He did very well and tolerated dialysis along with 3 liters of fluid removal total. Two liters were removed with dialysis and he had 1100 mL urine output. Patient denies any nausea or vomiting today. He has no fever or chills. He is being treated for multifocal pneumonia. PHYSICAL EXAMINATION: Temperature 97 degrees Fahrenheit, heart rate 82 per minute and respiratory rate 20 per minute. Blood pressure 124/60 mmHg and oxygen saturation 100% on 4 liters oxygen. Head: Atraumatic. Neck: Supple and JVD is elevated. He has a temporary hemodialysis catheter in the right internal jugular vein. Heart: Sounds are regular. Lungs: With diminished breath sounds and bibasilar rales. Abdomen: Soft and nontender and bowel sounds are normal. Extremities: Without any cyanosis or clubbing. Neurologically: He is awake, alert and oriented times 3. LABORATORY DATA: Today's labs show: WBC count 11.6, hemoglobin 8.6, hematocrit 29.9, platelets 304. Sodium 141, potassium 4, CO2 25, BUN 37, creatinine 2.64, glucose 69 this morning and his fingerstick blood sugar is now 79. PROBLEMS/PLAN: 1. Hypoxemia: Volume status did improve with dialysis and negative fluid balance. We will plan to dialyze him again today and remove another 2 liters of fluid. 2. Acute renal failure superimposed on chronic kidney disease: The patient has advanced chronic kidney disease at baseline. He was oliguric and requiring urgent dialysis yesterday. We will dialyze him again today and then we can monitor him for the next 24-48 hours. 3. Anemia: At present anemia is stable and does not need any urgent intervention. We will continue to monitor closely. 4. Pneumonia: Patient is being treated for multifocal pneumonia. He is currently on Zosyn and afebrile now.
[2021-02-02] MEDS: METOPROLOL TART 50 MG TAB PO SCH ×2 (18:15→21:28)
[2021-02-02] MEDS: AMIODARONE 200 MG TAB (PACERONE) PO SCH (18:15)
[2021-02-02] MEDS: traZODone 25MG PER 1/2 TABLET PO SCH (21:27)
[2021-02-03] VITALS (12 sets, daily range): BP systolic 106–145; BP diastolic 58–88; O2SAT 94–98
[2021-02-03] MEDS: PIPERACILLIN/TAZOBACTAM SOD 3.375 GM in D5W MINI-BAG PLUS 50 ML IV SCH ×2 (04:23→09:08)
[2021-02-03] MEDS: LEVOTHYROXINE 75MCG TABLET (0.075MG) PO SCH (06:09)
[2021-02-03 06:58] LABS: BASO # 0.1 10^3/uL (0.0-0.2); BASO % 0.8 % (0.0-1.0); EOS % 7.6 % (0.0-3.0); HEMATOCRIT 30.5 % (42.0-52.0); HEMOGLOBIN 8.7 g/dl (13.5-17.5); LYMPH # 0.9 10^3/uL (1.5-5.0); LYMPH % 6.8 % (24.0-44.0); MEAN CORPUSCULAR HEMOGLOBIN 25.5 pg (27.0-33.0); MEAN CORPUSCULAR HGB CONC 28.5 g/dl (32.0-36.5); MEAN CORPUSCULAR VOLUME 89.4 fl (80.0-96.0); MONO # 1.3 10^3/uL (0.0-0.8); MONO % 9.7 % (2.0-8.0); NEUTROPHILS # 9.7 10^3/uL (1.5-8.5); NEUTROPHILS % 74.3 % (36.0-66.0); PLATELET COUNT, AUTOMATED 290 10^3/uL (150-450); RED BLOOD COUNT 3.41 10^6/uL (4.30-6.10)
[2021-02-03 07:28] LABS: CALCIUM LEVEL 8.7 MG/DL (8.8-10.2); CREATININE FOR GFR 2.51 MG/DL (0.70-1.30); GLOMERULAR FILTRATION RATE 26.1 (>35); MAGNESIUM LEVEL 2.2 MG/DL (1.8-2.4); POTASSIUM SERUM 3.7 MEQ/L (3.5-5.1)
--- NOTE | 2021-02-03 08:45 | IPN ---
PROGRESS NOTE DATE: 02/03/2021 SUBJECTIVE: Per nursing, the patient has been eating without signs of aspiration currently on a mechanical soft diet. He is much more awake and alert this morning. He says that he is not short of breath. No chest pain, pressure, fever, or chills overnight. Still has a slight cough. Difficult to expectorate sputum. Afebrile. OBJECTIVE: VITAL SIGNS: Temperature 97.8, pulse 83, respiratory rate 18, blood pressure 134/65, 97% on 2 liters nasal cannula. INTAKE AND OUTPUT: Input overnight 460. Output 2.8 L with 2 L removed via dialysis. Current weight is 88.3 kg with admission weight of 93.64 kg, 500 mL urine output from midnight. GENERAL: The patient is now awake, alert, and oriented to himself. Answering questions appropriately. No conversational dyspnea. Right dialysis catheter noted in the internal jugular vein. No signs of cellulitis without erythema, tenderness, or crepitus. NECK: Unable to assess for JVD. No thyromegaly or cervical lymphadenopathy. HEENT: Moist mucous membranes. LUNGS: Diminished with bilateral basilar crackles. HEART: S1, S2. Regular rate and rhythm. ABDOMEN: Soft, nontender, and nondistended. Positive bowel sounds x4 quadrants. EXTREMITIES: Positive edema decreased. LABORATORY DATA/IMAGING STUDIES/MICROBIOLOGY: Please see the chart. ASSESSMENT: This is an 85-year-old male full code with history of chronic kidney disease stage III to IV. 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 He presented to the emergency room during this admission with complaint of shortness of breath and was hypoxic requiring Vapotherm. Chest x-ray showed pulmonary edema. CT chest showed bilateral pleural effusions. The patient's BNP was 13,000 with minimal urine output and was emergently dialyzed after right internal jugular (IJ) line was placed by water systems engineer Dr. Schwab. CURRENT ISSUES: 1. Acute hypoxic respiratory failure secondary to decompensated acute on chronic systolic and diastolic heart failure, acute systolic and diastolic congestive heart failure (CHF) exacerbation with ejection fraction (EF) of 45%, acute on chronic renal failure requiring emergency dialysis status post right internal jugular vein hemodialysis catheter placement. 2. Multifocal pneumonia. 3. Iron deficiency anemia. 4. Hyperkalemia, resolved. 5. Chronic atrial fibrillation back on Eliquis. 6. Acute metabolic encephalopathy due to CHF pneumonia. 7. Renal failure requiring dialysis. 8. Anemia of chronic disease. 9. Hypothyroidism. 10. 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 11. History of subdural hematoma. 12. Mild cognitive impairment. 13. Obesity complicating care. PLAN: The patient has significantly improved after two sessions of dialysis and has been in net negative balance with weight decreasing from admission of 93.64 kg to 88.3 kg and clinically improved without complaints of shortness of breath. Deferred to nephrology regarding further dialysis needs. The patient's hyperkalemia has resolved. Repeat chest x-ray on 02/02/2021 showed bilateral effusions, cardiomegaly, left atrioventricular enlargement. Still on broad-spectrum antibiotics with Zosyn. Swallow evaluation recommended. Mechanical soft diet with no signs of aspiration. If procalcitonin is negative will discontinue antibiotics. As of yesterday, it was 0.37 so we will continue the Zosyn for now. Encourage ambulation. PT/OT consulted for Thursday.
[2021-02-03] MEDS: AMIODARONE 200 MG TAB (PACERONE) PO SCH (09:08)
[2021-02-03] MEDS: PRAVASTATIN 20 MG TAB PO SCH (09:08)
[2021-02-03] MEDS: METOPROLOL TART 50 MG TAB PO SCH ×2 (09:08→20:38)
[2021-02-03] MEDS: PANTOPRAZOLE 40MG TAB (PROTONIX) PO SCH ×2 (09:08→20:37)
[2021-02-03] MEDS ORDERED: DARBEPOETIN 100 MCG/0.5 ML *DIALYSIS* SYRINGE (J0882) IV SCH (11:00)
--- NOTE | 2021-02-03 11:17 | IPN ---
NEPHROLOGY PROGRESS NOTE DATE: 02/03/2021 SUBJECTIVE: Mr. Muse is seen this morning on his bedside. He underwent hemodialysis yesterday, which he tolerated very well. He is feeling much better today and is fully alert and oriented. He denies any nausea or vomiting. He does not like the Concepcion catheter, which is causing him discomfort. His dyspnea has improved and he has no fever or chills. PHYSICAL EXAMINATION: VITAL SIGNS: Temperature 97.8 degrees Fahrenheit, heart rate 86 per minute, respiratory rate 20 per minute, blood pressure 145/88 mmHg, oxygen saturation 98% on 2 liters oxygen. HEAD: Atraumatic. NECK: Supple and jugular venous distention (JVD) difficult to be assessed. He has a temporary hemodialysis catheter in right internal jugular vein. HEART SOUNDS: Regular. LUNGS: Much clearer now. There is no wheezing and only occasionally rales at the bases. ABDOMEN: Soft and nontender. Bowel sounds are normal. EXTREMITIES: Without any cyanosis or clubbing. NEUROLOGIC: He is awake, alert and oriented times three. LABORATORY DATA: Today's labs show WBC count 13.0, hemoglobin 8.7, hematocrit 30.5. Sodium 139, potassium 3.7, CO2 25, BUN 26, creatinine 2.51. PROBLEMS: 1. Acute renal failure superimposed on chronic kidney disease. Patient has been dialyzed twice in a row, on 02/01/2021 and 02/02/2021. We removed 4 liters of fluid so far. He is still oliguric and we will reevaluate him tomorrow for dialysis. He does not have any uremic symptoms. 2. Congestive heart failure. Patient did not respond to high dose intravenous diuretics. I have stopped his intravenous (IV) Lasix. Four liters of fluid have been removed with dialysis over the last two days and volume status seems well compensated. Will monitor his urine output and his Concepcion catheter is being stopped for now. He is able to urinate in the urinal. No diuretic is being given today. 3. Anemia. Patient has iron deficiency anemia. Will start with intravenous iron during dialysis. No urgent need for dialysis. 4. Pneumonia. Patient is currently being treated for multifocal pneumonia with Zosyn. He is afebrile. 5. Atrial fibrillation. He is currently well controlled and heart rate seems to be regular. He remains on amiodarone and metoprolol. He is not receiving any anticoagulation at present. 6. Dialysis access. Patient currently has a temporary hemodialysis catheter and we will try to get a Permacath placed next week.
[2021-02-03] MEDS: OXcarbazepine 150 MG TAB PO SCH ×2 (12:39→20:39)
[2021-02-03] MEDS ORDERED: PIPERACILLIN/TAZOBACTAM SOD 2.25 GM in D5W MINI-BAG PLUS 50 ML IV SCH (17:00)
[2021-02-03] MEDS: PIPERACILLIN/TAZOBACTAM SOD 4.5 GM in D5W MINI-BAG PLUS 50 ML IV SCH (17:27)
[2021-02-03] MEDS: traZODone 50 MG TAB PO PRN (20:38)
[2021-02-04] MEDS: LEVOTHYROXINE 75MCG TABLET (0.075MG) PO SCH (05:08)
[2021-02-04] MEDS: PIPERACILLIN/TAZOBACTAM SOD 4.5 GM in D5W MINI-BAG PLUS 50 ML IV SCH ×2 (05:08→17:04)
[2021-02-04] MEDS: IPRATROPIUM 0.5MG/ALBUTEROL 2.5MG INH SOL UD 3ML (DUONEB) NEB PRN (05:21)
[2021-02-04 06:00] VITALS: BP 138/81
[2021-02-04 06:26] LABS: BASO # 0.1 10^3/uL (0.0-0.2); BASO % 0.8 % (0.0-1.0); EOS # 0.9 10^3/uL (0.0-0.5); HEMATOCRIT 30.4 % (42.0-52.0); HEMOGLOBIN 8.7 g/dl (13.5-17.5); LYMPH # 0.9 10^3/uL (1.5-5.0); LYMPH % 7.4 % (24.0-44.0); MEAN CORPUSCULAR HEMOGLOBIN 25.8 pg (27.0-33.0); MEAN CORPUSCULAR HGB CONC 28.6 g/dl (32.0-36.5); MEAN CORPUSCULAR VOLUME 90.2 fl (80.0-96.0); MONO # 1.1 10^3/uL (0.0-0.8); MONO % 9.3 % (2.0-8.0); NEUTROPHILS # 8.6 10^3/uL (1.5-8.5); NEUTROPHILS % 73.6 % (36.0-66.0); PLATELET COUNT, AUTOMATED 279 10^3/uL (150-450); RED BLOOD COUNT 3.37 10^6/uL (4.30-6.10); WHITE BLOOD COUNT 11.7 10^3/uL (4.0-10.0)
[2021-02-04 06:49] LABS: CREATININE FOR GFR 2.74 MG/DL (0.70-1.30); GLOMERULAR FILTRATION RATE 23.6 (>35); MAGNESIUM LEVEL 2.1 MG/DL (1.8-2.4); POTASSIUM SERUM 3.8 MEQ/L (3.5-5.1)
[2021-02-04] MEDS: PRAVASTATIN 20 MG TAB PO SCH (10:50)
[2021-02-04] MEDS: TORSEMIDE 100 MG TAB PO SCH (10:50)
[2021-02-04] MEDS: AMIODARONE 200 MG TAB (PACERONE) PO SCH (10:53)
[2021-02-04] MEDS: PANTOPRAZOLE 40MG TAB (PROTONIX) PO SCH ×2 (10:53→20:51)
[2021-02-04] MEDS: OXcarbazepine 150 MG TAB PO SCH ×2 (10:53→20:53)
[2021-02-04] MEDS: METOPROLOL TART 50 MG TAB PO SCH ×2 (10:53→20:52)
--- NOTE | 2021-02-04 10:54 | IPNPDOC ---
Date Seen The patient was seen on 02/04/21. Progress Note SUBJECTIVE: Cough and shortness of breath have improved, but patient is still at risk for aspiration awaiting speech therapy evaluation No fever chills. Input and output documented. OBJECTIVE: VITAL SIGNS: See below INTAKE AND OUTPUT: See chart GENERAL: Head of bed elevated at 45 degrees sleeping but easily arousable Much more oriented answering questions appropriately But goes back to sleep HEENT right dialysis catheter noted in the internal jugular vein. No signs of cellulitis without erythema, tenderness, or crepitus. NECK: Unable to assess for JVD. No thyromegaly or cervical lymphadenopathy. Moist mucous membranes. LUNGS: Diminished with bilateral basilar crackles. HEART: S1, S2. Regular rate and rhythm. ABDOMEN: Soft, nontender, and nondistended. Positive bowel sounds x4 quadrants. EXTREMITIES: Positive edema decreased. LABORATORY DATA/IMAGING STUDIES/MICROBIOLOGY: Please see the chart. ASSESSMENT: This is an 85-year-old male full code with history of chronic kidney disease stage III to IV. 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 He presented to the emergency room during this admission with complaint of shortness of breath and was hypoxic requiring Vapotherm. Chest x-ray showed pulmonary edema. CT chest showed bilateral pleural effusions. The patient's BNP was 13,000 with minimal urine output and was emergently dialyzed after right internal jugular (IJ) line was placed by mottler machine feeder Dr. Schwab. CURRENT ISSUES: 1. Acute hypoxic respiratory failure secondary to decompensated acute on chronic systolic and diastolic heart failure, acute systolic and diastolic congestive heart failure (CHF) exacerbation with ejection fraction (EF) of 45%, acute on chronic renal failure requiring emergency dialysis status post right internal jugular vein hemodialysis catheter placement. 2. Multifocal pneumonia. 3. Iron deficiency anemia. 4. Hyperkalemia, resolved. 5. Chronic atrial fibrillation back on Eliquis. 6. Acute metabolic encephalopathy due to CHF pneumonia. 7. Renal failure requiring dialysis. 8. Anemia of chronic disease. 9. Hypothyroidism. 10. 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 11. History of subdural hematoma. 12. Mild cognitive impairment. 13. Obesity complicating care. PLAN: Awaiting swallow evaluation today regarding dysphagia and risk of aspiration Family is waiting for decision from nephrology whether the patient will require permanent dialysis needs Defer to nephrology for managing patient's fluid balance. He is maintained on antibiotics for pneumonia we will repeat chest x-ray and procalcitonin if negative may discontinue or transition to oral antibiotics once oral intake is resumed without signs of aspiration. PT OT [facility]&O Vital Signs Date Time Temp Pulse Resp B/P (MAP) Pulse Ox O2 Delivery O2 Flow Rate FiO2 02/04/21 06:27 2.0 02/04/21 06:00 98.2 88 22 138/81 (100) 96 High Flow Cannula 02/01/21 14:30 75 I&O- Last 24 Hours up to 6 AM 02/04/21 06:00 Intake Total 1350 ml Output Total 600 ml Balance 750 ml Laboratory Data 24H LABS Laboratory Tests 2 02/04/21 05:48: Anion Gap 6L, Glomerular Filtration Rate 23.6L, Calcium Level 9.0, Magnesium Level 2.1 02/04/21 05:49: Immature Granulocyte % (Auto) 0.9, Neutrophils (%) (Auto) 73.6H, Lymphocytes (%) (Auto) 7.4L, Monocytes (%) (Auto) 9.3H, Eosinophils (%) (Auto) 8.0H, Basophils (%) (Auto) 0.8, Neutrophils # (Auto) 8.6H, Lymphocytes # (Auto) 0.9L, Monocytes # (Auto) 1.1H, Eosinophils # (Auto) 0.9H, Basophils # (Auto) 0.1, Nucleated Red Blood Cells % (auto) 0.0 CBC/BMP Laboratory Tests 02/04/21 05:48 02/04/21 05:49 Microbiology Microbiology 01/31/21 Blood Culture - Preliminary, Resulted No Growth after 72 hours. All specime... 01/31/21 Blood Culture - Preliminary, Resulted No Growth after 72 hours. All specime... KLARISSA STALLWORTH MD Feb 04, 2021 10:54
[2021-02-04] MEDS ORDERED: VARIBAR PUDDING 40% w/v 230ML TUBE As Ordered ONE (12:22)
[2021-02-04] MEDS ORDERED: BARIUM SULFATE 700 MG TABLET (E-Z-DISK) As Ordered ONE (12:22)
[2021-02-04] MEDS ORDERED: VARIBAR NECTAR 40% w/v 240ML SUSP BTL As Ordered ONE (12:22)
[2021-02-04] MEDS ORDERED: E-Z-PAQUE 96% w/w SUSP 176GM BTL As Ordered ONE (12:22)
--- NOTE | 2021-02-04 12:47 | IPN ---
NEPHROLOGY PROGRESS NOTE DATE: 02/04/2021 SUBJECTIVE: Mr. Muse seen this morning on his bedside. He is somewhat discouraged as he has no urine output today. He is still short of breath and requiring 2 liters of oxygen. He denies any nausea or vomiting. PHYSICAL EXAMINATION: On exam patient is awake and alert and without any acute distress. His temperature is 98.2 degrees Fahrenheit, heart rate 88 per minute and respiratory rate 22 per minute. Blood pressure 137/80 mmHg and oxygen saturation 96% on 2 liters of oxygen. Head: Atraumatic. Neck: He has a temporary hemodialysis catheter in the right internal jugular vein. His neck veins are somewhat full. Heart: Sounds are regular. Lungs: With bilateral rales. Abdomen: Soft and nontender and bowel sounds are normal. Extremities: Without any cyanosis or clubbing. He does have mild lower extremity edema. Neurologically: He is awake, alert and oriented times 3. LABORATORY DATA: Today's labs show sodium 141, potassium 3.8, CO2 28, BUN 30, creatinine 2.74, glucose 94, calcium 9. WBC count 11.7, hemoglobin 8.7, hematocrit 30.4, platelets 279. PROBLEMS/PLAN: 1. Oliguric acute renal failure superimposed on chronic kidney disease: Patient has prior history of similar episode when he had congestive heart failure and pneumonia and developed acute renal failure. He required temporary dialysis. So far he is still oliguric and was dialyzed on Thursday. I am going to hold off on dialysis today and watch his urine output. His electrolytes are stable. 2. Congestive heart failure: Volume status still decompensated. A chest x-ray is being ordered and patient will be given torsemide 100 mg this morning. We will watch his urine output and see if he responds to diuretic. 3. Pneumonia: Patient remains on antibiotics for multifocal pneumonia and is currently afebrile. He is receiving Zosyn 4.5 grams q12h. 4. Anemia: His anemia is unchanged, but not improved. We will give him Aranesp with dialysis once a week. He will also get intravenous iron during dialysis. 5. Atrial fibrillation: His heart rate is very well controlled with amiodarone and metoprolol.
[2021-02-04 14:08] LABS: BODY FLUID CULTURE Not indicated. (.); LEGIONELLA ANTIGEN URINE Negative (Negative); ORGANISM ID Not indicated. (.); SPECIMEN SOURCE Urine (.); URINE STREP PNEUMONIAE ANTIGEN Negative (Negative)
--- NOTE | 2021-02-04 14:51 | REP ---
INDICATION: CHF/pneumonia. COMPARISON: Multiple the latest 02/02/2021 portable exam TECHNIQUE: PA and lateral FINDINGS: The diffuse bilateral patchy interstitial and airspace opacities appear to have improved somewhat. Cardiomediastinal silhouette is stable. The heart is mildly enlarged. The pacemaker devices unchanged. There is no change in the osseous structures. Central venous catheter tip remains in the superior vena cava. IMPRESSION: There appears to be some improvement <Electronically signed by Fco Horton > 02/04/21 [id number]
[2021-02-04] MEDS: NYSTATIN 100,000 UNITS/GM TOPICAL PWD 15 GM TOP SCH ×2 (17:04→20:51)
--- NOTE | 2021-02-04 17:24 | REP ---
INDICATION: dysphagia r/o aspiration. COMPARISON: NONE TECHNIQUE: The procedure was performed under the direct supervision of . The procedure was performed with Elyse Berger from speech pathology present. 2.2 minutes of fluoroscopy time was utilized for this procedure. FINDINGS: The patient was assessed upon entering the room. The patient is in an upright position and conversing appropriately. A video pharyngo esophagram was then performed. Thin consistency: The patient was instructed to take a swallow from the cup. Patient was able to form a bolus by cupping the tongue and initiating deglutition without delay. There is aspiration. Passavant's pad zehra and shifted posteriorly normally with no nasopharyngeal aspiration. The patient was then instructed to take a swallow from a straw while keeping the chin tucked. Patient was able to clear the bolus without delay. Pinnacle consistency: Patient was instructed to take a swallow from the cup. Again the patient was able to formal bolus by cupping of the tongue and manipulated the bolus well. Passavant's pad zehra and shifted posteriorly normally with no nasopharyngeal aspiration. The patient was able to clear the bolus without delay. The patient was then instructed to take consecutive swallows from a cup. With this, the patient did aspirate. The patient was then again instructed to take a single swallow of nectar from a cup. The patient was able to clear the bolus without delay. Pudding consistency: The patient was able to form a bolus by cupping of the tongue and manipulated the bolus well. The patient cleared the bolus immediately. Passavant's pad zehra and shifted posteriorly normally with no nasopharyngeal aspiration. Mixed fruit consistency: The patient was able to form a bolus by cupping of the tongue and manipulated the bolus well. There is delay in triggering and pooling in the vallecula, however, the patient was able to clear the bolus. Passavant's pad zehra and shifted posterior normally with no nasopharyngeal aspiration. Soft consistency: The patient was able to form a bolus by cupping of the tongue and manipulated the bolus well. There is delay in triggering and mild pooling in the vallecular. The patient was able to clear the bolus. Passavant's pad zehra and shifted posteriorly normally with no nasopharyngeal aspiration. Solid consistency: The patient was able to form a bolus by cupping of the tongue and manipulated the bolus well. There is delay in triggering. The barium collects on top of and spills over the posterior aspect of the epiglottis, however, the patient was able to clear the bolus. Passavant's pad zehra and shifted anteriorly normally with no nasopharyngeal aspiration. The patient was then given a barium pill with applesauce. The barium pill passed without delay.A detailed report of this examination will be provided by speech pathology. IMPRESSION: There is aspiration with thin and nectar consistency barium as described above. With soft consistency barium there is delayed triggering and pooling in the vallecula, however, the patient was able to clear the bolus. With solid consistency barium the barium collects on top of and spills over the posterior aspect of the epiglottis, however, the patient was able to clear the bolus. A detailed report of this examination will be provided by speech pathology. <Electronically signed by Akash Barnhart > 02/04/21 [id number] <Electronically signed by Chris Juarez > 02/04/21 [id number]
--- NOTE | 2021-02-04 18:35 | CR.PDOC ---
General Date of Consultation: Feb 04, 2021 (615 pm) Referring Provider: KLARISSA STALLWORTH MD Attending Physician: Lillian Shin MD Consultation REASON FOR CONSULTATION/CHIEF COMPLAINT: Permcath for ongoing hemodialysis treatments HISTORY OF PRESENT ILLNESS: Callum Muse is an 85 year old male who was hospitalized with worsening dyspnea on on exertion, leg swelling, and orthopnea. Majority of HPI obtained by patient's daughter and medical proxy, Purvi-as the patient is intermittently confused. The patient's chronic kidney disease worsened, and hemodialysis was initiated on 04/03/2020, through a right internal jugular vein temporary dialysis catheter. He requires ongoing hemodialysis treatments. Hence vascular surgery was consulted for placement of a Permacathe ter. Apparently the patient's renal function deteriorates every time he was hospitalized with a critical illness and recovers. He is right-handed. He recently had a pacemaker placed in the left chest Patient recently discharged from [facility] after treatment of pneumonia and pacemaker placement. Patient had 2 separate admissions from 01/09-01/15 for complete heart block and permanent pacer placement and then returned 01/16/21 due to shortness of breath and cough and was treated for pneumonia with Zosyn and discharged 01/22/21. His PMHx is significant for A. 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 He was started on Augmentin p.o. outpatient by PCP during his follow-up but progressively worsened. He also had recent fall to left hip and subsequent bruising. Additionally, patient has pressure injury to bottom and progressive deconditioning over the past few months. He is alert and oriented to self ,place and situation. He has known history of short-term memory loss /cognitive impairment since his encephalitis and encephalomalacia. He becomes more fatigued and begins to display sundowning type behavior. This is not abnormal for pt and family endorses confusion is often exacerbated by illness and hospital admissions. ALLERGIES: Please see below. HOME MEDICATIONS: Please see below. PAST MEDICAL HISTORY: A. 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 His mother had heart disease. SOCIAL HISTORY: He is and lives with his of 60 years. He quit smoking 60 years ago. 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 GENERAL APPEARANCE: Medium built elderly gentleman, who is arousable, and appropriately responsive, with intermittent confusion. He is oriented to place and person. HEENT: Pallor +, no icterus. hard of hearing RESPIRATORY: Crackles bilateral bases, with intermittent rhonchi and wheezing CARDIOVASCULAR: Jugular venous distention present, no carotid bruits Regular heart sounds, ejection systolic murmur 2/6, left second intercostal space. Bilateral radial pulses +2 palpable. Femoral pulses +2 palpable. Left dorsalis pedis and posterior tibial pulse 2 palpable. Right pedal pulses nonpalpable. Dry skin on legs and the feet, with the evidence of venous stasis changes. No pedal edema. Dependent rubor of the right foot. He denies any significant cl audication or ischemic rest pain of the right foot. Dystrophic toenails ABDOMEN: Soft, nondistended, no obvious masses EXTREMITIES: Warm, dry skin, no deformities NEUROLOGICAL: Grossly nonfocal exam PSYCHIATRIC: Cooperative, normal mood and affect LABORATORY DATA: All relevant labs and imaging, from the current hospitalization has been reviewed in detail. His Eliquis was held on 02/02/2021. ASSESSMENT/PLAN: Acute on chronic renal insufficiency, in a patient with persistent/recurrent pneumonia, CHF, atrial fibrillation, requiring hemodialysis and hemodialysis access. Nephrology plans to dialyze him for a few more treatments, in the hopes that his urine output and creatinine will improve to his baseline. Plan: Permacatheter insertion tomorrow a.m. Informed consent was obtained from his daughter Purvi Vital Signs/I&O Vital Signs Date Time Temp Pulse Resp B/P (MAP) Pulse Ox O2 Delivery O2 Flow Rate FiO2 02/04/21 10:53 88 137/81 02/04/21 09:00 2.0 02/04/21 06:00 98.2 22 96 High Flow Cannula 02/01/21 14:30 75 I&O- Last 24 Hours up to 6 AM 02/04/21 06:00 Intake Total 1350 ml Output Total 600 ml Balance 750 ml Laboratory Data Labs 24H Laboratory Tests 2 02/04/21 05:48: Anion Gap 6L, Glomerular Filtration Rate 23.6L, Calcium Level 9.0, Magnesium Level 2.1 02/04/21 05:49: Immature Granulocyte % (Auto) 0.9, Neutrophils (%) (Auto) 73.6H, Lymphocytes (%) (Auto) 7.4L, Monocytes (%) (Auto) 9.3H, Eosinophils (%) (Auto) 8.0H, Basophils (%) (Auto) 0.8, Neutrophils # (Auto) 8.6H, Lymphocytes # (Auto) 0.9L, Monocytes # (Auto) 1.1H, Eosinophils # (Auto) 0.9H, Basophils # (Auto) 0.1, Nucleated Red Blood Cells % (auto) 0.0 CBC/BMP Laboratory Tests 02/04/21 05:48 02/04/21 05:49 Microbiology Microbiology 01/31/21 Blood Culture - Preliminary, Resulted No Growth after 72 hours. All specime... 01/31/21 Blood Culture - Preliminary, Resulted No Growth after 72 hours. All specime... Allergies Coded Allergies: spironolactone (Unverified Adverse Reaction, Mild, "BREAST LUMP", 11/10/20) Home Medications Scheduled Amiodarone HCl (Amiodarone HCl) 200 Mg Tablet, 200 MG PO DAILY, (Reported) Amlodipine Besylate (Amlodipine Besylate) 5 Mg Tablet, 5 MG PO DAILY, (Reported) Amoxicillin/Potassium Clav (Amox-Clav 500-125 mg Tablet) 1 Each Tablet, 500 MG PO BID, (Reported) FOR 7 DAYS, LAST DOSE OF COURSE 01/31 AT BEDTIME Apixaban (Eliquis) 2.5 Mg Tab, 2.5 MG PO BID, (Reported) Eplerenone (Eplerenone) 25 Mg Tablet, 25 MG PO DAILY, (Reported) Levothyroxine Sodium (Levothyroxine Sodium) 75 Mcg Tablet, 75 MCG PO DAILY, (Reported) Lisinopril (Lisinopril) 10 Mg Tablet, 10 MG PO DAILY, (Reported) Metoprolol Tartrate (Metoprolol Tartrate) 50 Mg Tablet, 50 MG PO BID, (Reported) Oxcarbazepine (Oxcarbazepine) 150 Mg Tab, 300 MG PO BID, (Reported) Pantoprazole Sodium (Pantoprazole Sodium) 40 Mg Tablet.dr, 40 MG PO BID, (Reported) Potassium Chloride (K-Tab ER) 20 Meq Tab, 20 MEQ PO BID, (Reported) Pravastatin Sodium (Pravastatin Sodium) 20 Mg Tablet, 20 MG PO DAILY, (Reported) Torsemide (Torsemide) 100 Mg Tablet, 100 MG PO DAILY, (Reported) Trazodone HCl (Trazodone HCl) 50 Mg Tab, 25 MG PO QHS, (Reported) Lillian Shin MD Feb 04, 2021 18:35
[2021-02-04 20:34] VITALS: BP 140/80
[2021-02-04] MEDS: traZODone 50 MG TAB PO PRN (20:52)
[2021-02-05] MEDS: LEVOTHYROXINE 75MCG TABLET (0.075MG) PO SCH (05:35)
[2021-02-05] MEDS: PIPERACILLIN/TAZOBACTAM SOD 4.5 GM in D5W MINI-BAG PLUS 50 ML IV SCH ×2 (05:35→18:18)
[2021-02-05] MEDS: IPRATROPIUM 0.5MG/ALBUTEROL 2.5MG INH SOL UD 3ML (DUONEB) NEB PRN (05:49)
[2021-02-05 06:21] VITALS: BP 130/76
[2021-02-05] MEDS ORDERED: fentaNYL 100 MCG/2 ML INJECTION (J3010) As Ordered ONE (07:09)
[2021-02-05] MEDS ORDERED: MIDAZOLAM INJ 2MG/2ML VIAL (J2250 PER 1MG) As Ordered ONE (07:10)
[2021-02-05] MEDS ORDERED: LIDOCAINE 1% MDV 20ML VIAL As Ordered ONE (07:10)
[2021-02-05] MEDS ORDERED: SODIUM CHLORIDE 0.9% 1000ML IV PRN (07:15)
[2021-02-05] MEDS ORDERED: diphenhydrAMINE 50MG/ML VIAL (J1200) As Ordered ONE (07:23)
[2021-02-05 08:17] LABS: BASO # 0.1 10^3/uL (0.0-0.2); BASO % 1.1 % (0.0-1.0); EOS # 0.8 10^3/uL (0.0-0.5); EOS % 7.4 % (0.0-3.0); HEMOGLOBIN 8.6 g/dl (13.5-17.5); LYMPH # 0.9 10^3/uL (1.5-5.0); LYMPH % 8.2 % (24.0-44.0); MEAN CORPUSCULAR HEMOGLOBIN 25.5 pg (27.0-33.0); MEAN CORPUSCULAR HGB CONC 28.7 g/dl (32.0-36.5); MONO # 0.9 10^3/uL (0.0-0.8); MONO % 8.8 % (2.0-8.0); NEUTROPHILS # 7.7 10^3/uL (1.5-8.5); NEUTROPHILS % 73.6 % (36.0-66.0); PLATELET COUNT, AUTOMATED 293 10^3/uL (150-450); RED BLOOD COUNT 3.37 10^6/uL (4.30-6.10); WHITE BLOOD COUNT 10.5 10^3/uL (4.0-10.0)
[2021-02-05 08:25] LABS: CALCIUM LEVEL 8.8 MG/DL (8.8-10.2); CREATININE FOR GFR 2.58 MG/DL (0.70-1.30); GLOMERULAR FILTRATION RATE 25.3 (>35); MAGNESIUM LEVEL 2.1 MG/DL (1.8-2.4); POTASSIUM SERUM 3.5 MEQ/L (3.5-5.1)
[2021-02-05 08:27] LABS: INR 1.2; PROTHROMBIN TIME 15.6 SECONDS (12.7-14.5)
[2021-02-05 08:28] LABS: PARTIAL THROMBOPLASTIN TIME 35.5 SECONDS (25.9-37.0)
--- NOTE | 2021-02-05 08:51 | ROOPDOC ---
[facility] Report Of Operation Report of Operation DATE OF PROCEDURE: 02/05/21 PREPROCEDURE DIAGNOSES: Acute on chronic renal insufficiency, requiring ongoing hemodialysis treatments. POSTPROCEDURE DIAGNOSES: Acute on chronic renal insufficiency, requiring ongoing hemodialysis treatments. PROCEDURE PERFORMED: Insertion of a right internal jugular vein permacatheter-23 cm Palindrome, under ultrasound-guided venous access and fluoroscopic guidance. SURGEON: Lillian Shin MD MANAGER CORE: None ANESTHESIA: Local ESTIMATED BLOOD LOSS: Approximately 5 mL. COMPLICATIONS: None FINDINGS: Patent right internal jugular vein. Catheter tip in the junction of the SVC and the right atrium SPECIMENS REMOVED: None PROCEDURE NOTE: Indication for the procedure: The patient is an 85-year-old gentleman, who was hospitalized with congestive heart failure, persistent pneumonia, and noted to have acute worsening of his chronic renal insufficiency, for which she was started on hemodialysis on 02/01/2021, through her right internal jugular vein temporary dialysis catheter. Requires ongoing hemodialysis treatments. Hence the above-mentioned procedure is being performed. Informed consent was obtained from his daughter Purvi, as the pa tient is intermittently confused. DESCRIPTION OF PROCEDURE: The patient was placed supine on the angiographic table. The right side of the neck and chest were cleaned and draped in a sterile fashion. He was already on intravenous antibiotics, and hence no further antibiotics were administered. A timeout was performed. Under ultrasound guidance, after administering local anesthesia with 1% lidocaine, the right internal jugular vein was accessed, using a micropuncture needle and exchanged to micro sheath. The sheath was exchanged to a Amplatz wire. The subcutaneous tunnel for the catheter and the exit site for the catheter were then anesthetized with 1% lidocaine. A stab incision was made at the exit site which was about 3 fingerbreadths below the clavicle, slightly lateral to the midclavicular line. The vein access site was also dilated to accommodate the dilators in the sheath. The catheter that was flushed and attached to the metallic tunneler was then tunneled from the exit site incision to the vein access site subcutaneously. The vein access site was serially dilated, and finally the peel-away sheath was placed over the wire. All steps were performed under fluoroscopic guidance. The dilator of the sheath and the wire were removed, and the catheter that was disengaged from the tunneler was inserted into the sheath, as the sheath was gently peeled away. The tip of the catheter was noted to be at the junction of the SVC and the right atrium. There was good backflow through both ports of the catheter. Both ports were flushed with heparinized saline, and hep-locked with 1000 units/mL of heparin. The catheter was anchored to the skin at the exit site with 2-0 Prolene. The vein access site was closed with 4-0 Monocryl suture. Dry sterile dressings were placed. The patient tolerated the procedure well. He was hemodynamically stable. The procedure and findings were conveyed to his daughter Purvi over the phone. Lillian Shin MD Feb 05, 2021 08:51
[2021-02-05] MEDS: METOPROLOL TART 50 MG TAB PO SCH ×2 (09:00→21:33)
[2021-02-05 09:29] VITALS: BP 130/76
[2021-02-05] MEDS: TORSEMIDE 100 MG TAB PO SCH (10:23)
[2021-02-05] MEDS: PRAVASTATIN 20 MG TAB PO SCH (10:23)
[2021-02-05] MEDS: AMIODARONE 200 MG TAB (PACERONE) PO SCH (10:23)
[2021-02-05] MEDS: PANTOPRAZOLE 40MG TAB (PROTONIX) PO SCH ×2 (10:23→21:32)
[2021-02-05] MEDS: NYSTATIN 100,000 UNITS/GM TOPICAL PWD 15 GM TOP SCH ×2 (10:24→21:33)
[2021-02-05] MEDS: OXcarbazepine 150 MG TAB PO SCH ×2 (10:24→21:32)
--- NOTE | 2021-02-05 11:52 | IPN ---
PROGRESS NOTE DATE: 02/05/2021 SUBJECTIVE: Mr. Muse is seen this morning on his bedside. He just returned from Interventional Radiology getting a Perm-A-Cath placed. He had a temporary catheter in his right internal jugular vein for dialysis. His kidney function has not improved as he has no urine output. He had a Perm-A-Cath placed for preparation for continuation of dialysis. He tells me that for the long-term he would like to do peritoneal dialysis as he lives about an hour away from any hemodialysis center. He denies any nausea or vomiting. His dyspnea persists and he is still requiring 2 liters of oxygen. OBJECTIVE: VITAL SIGNS: Temperature is 97.8 degrees Fahrenheit, heart rate is 70 per minute and respiratory rate is 20 per minute. Blood pressure is 130/76 mmHg and oxygen saturation is 95% on 2 liters of oxygen. INTAKE AND OUTPUT: Intake and output records from yesterday are incomplete. There is no urine output recorded. He did have some incontinent voids yesterday. His weight is essentially unchanged. HEAD: Atraumatic. NECK: Supple. JVD is about 9 cm above sternal angle. He has a right hemodialysis catheter in the right internal jugular vein. HEART: His heart sounds are irregular. LUNGS: Bilateral rhonchi. ABDOMEN: Soft and nontender. Bowel sounds are normal. EXTREMITIES: Without any cyanosis or clubbing. NEUROLOGIC: He is without any focal deficit. LABORATORY DATA: Today's labs showed a WBC of 10.5, hemoglobin is 8.6, and hematocrit is 30, platelets are 293,000. Sodium is 144, potassium is 3.5, BUN is 29 and creatinine is 2.58, glucose is 92 and calcium is 8.8. PROBLEMS: 1. Congestive heart failure. His volume status remains decompensated. He did not respond to diuretics and has no urine output. Yesterday, he had only one incontinent void. Today, no urine output so far. We plan to dialyze him again this afternoon. We will remove about 2.5 liters of fluid with dialysis today. 2. Acute renal failure superimposed on chronic kidney disease. His labs did not change much, however the patient has no urine output. I am concerned that he is getting more volume overloaded. Will remove about 2.5 liters of fluid with dialysis today. I will also check his bladder for any urinary retention as his Concepcion catheter has been removed. 3. Anemia, at present his anemia is stable and does not need any urgent intervention. 4. Pneumonia, patient is currently afebrile and remains on Zosyn.
--- NOTE | 2021-02-05 11:52 | IPN ---
PROGRESS NOTE DATE: 02/05/2021 SUBJECTIVE: No fever or chills, continues to have cough productive of white sputum. Aspiration noted on esophagram yesterday on modified diet. Patient had been aneuric for the past 2 days. Permacath to be placed by vascular surgery. Will need dialysis as outpatient. No nausea, vomiting. No diarrhea or constipation. OBJECTIVE: Vital signs: Temperature 97.8, pulse 70, respiratory rate 20, blood pressure 130/76, 99% on 2 liters nasal cannula. General: Awake, alert, oriented to person and place, answering questions appropriately in no distress. Neck: No JVD, no thyromegaly, no cervical lymphadenopathy. Lungs: Diminished. Heart: S1 and S2 sinus rhythm. Abdomen: Soft, nontender, nondistended, positive bowel sounds. Extremities: No cyanosis or clubbing; with bilateral trace to 1+ pitting edema. LABORATORY DATA/IMAGING STUDIES/MICROBIOLOGY: Have been reviewed. ASSESSMENT: 85-year-old male with history of congestive heart failure, EF of 45%, CKD stage 4, baseline GFR of 20-30, severe pulmonary hypertension, moderate tricuspid regurgitation, chronic afib, CAD, sleep apnea, herpes encephalitis with seizures, subdural hematoma, cognitive impairment, obesity with prior admission to [facility] for septic shock requiring temporary dialysis 2-3 treatments, heart block requiring pacemaker and treatment for pneumonia. He presented due to complaints of dyspnea, was extremely hypoxic requiring Vapotherm with chest x-ray showing pulmonary edema, bilateral infiltrates. 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 Patient requires a Permacath since he remains oliguric. ACTIVE ISSUES: 1. Multifocal pneumonia. 2. Congestive heart failure, acute on chronic decompensated systolic and diastolic heart failure exacerbation requiring emergency dialysis. 3. End-stage renal disease on dialysis during this admission. Prior history of stage 4 with baseline GFR 20-30. 4. Acute hypoxic respiratory failure due to CHF and pneumonia. 5. Chronic afib. Eliquis held due to planned Permacath placement. 6. Acute encephalopathy due to CHF and pneumonia. 7. Anemia of chronic disease. 8. Hypothyroidism. 9. History of seizures, subdural hematoma and herpes encephalitis on chronic cognitive impairment. 10. Obesity. 11. Aspiration requiring dysphagia diet. PLAN: Permacath is to be placed today. May resume patient's Eliquis for chronic afib per vascular surgery recommendation later today or in the morning; we await recommendation. Dialysis needs managed by nephrology. Patient remains oliguric and will need dialysis in the future. Antibiotics are continued with procalcitonin being elevated on 02/02/2021. Blood cultures remain negative. ARU consult. Defer to nephrology for Venofer. No active GI bleed. MTDD
[2021-02-05] MEDS: IRON SUCROSE 100MG 5ML VIAL (J1756 PER 1MG) IV SCH (15:44)
[2021-02-05] MEDS: traZODone 50 MG TAB PO PRN (21:32)
[2021-02-05 22:00] VITALS: BP 129/76
[2021-02-06] MEDS ORDERED: ACETAMINOPHEN TAB 650MG DOSE (2X325MG) PO PRN (02:40)
[2021-02-06] MEDS: LEVOTHYROXINE 75MCG TABLET (0.075MG) PO SCH (05:42)
[2021-02-06] MEDS: PIPERACILLIN/TAZOBACTAM SOD 4.5 GM in D5W MINI-BAG PLUS 50 ML IV SCH ×2 (05:42→17:33)
[2021-02-06 06:00] VITALS: BP 128/74
[2021-02-06 07:09] LABS: CALCIUM LEVEL 8.8 MG/DL (8.8-10.2); CREATININE FOR GFR 2.08 MG/DL (0.70-1.30); GLOMERULAR FILTRATION RATE 32.5 (>35); POTASSIUM SERUM 3.8 MEQ/L (3.5-5.1)
[2021-02-06 07:19] LABS: BASO # 0.1 10^3/uL (0.0-0.2); EOS # 0.6 10^3/uL (0.0-0.5); EOS % 7.3 % (0.0-3.0); HEMATOCRIT 30.1 % (42.0-52.0); HEMOGLOBIN 8.5 g/dl (13.5-17.5); LYMPH # 0.8 10^3/uL (1.5-5.0); LYMPH % 9.4 % (24.0-44.0); MEAN CORPUSCULAR HEMOGLOBIN 25.4 pg (27.0-33.0); MEAN CORPUSCULAR HGB CONC 28.2 g/dl (32.0-36.5); MEAN CORPUSCULAR VOLUME 89.9 fl (80.0-96.0); MONO # 0.8 10^3/uL (0.0-0.8); MONO % 9.3 % (2.0-8.0); NEUTROPHILS # 6.3 10^3/uL (1.5-8.5); NEUTROPHILS % 72.3 % (36.0-66.0); PLATELET COUNT, AUTOMATED 228 10^3/uL (150-450); RED BLOOD COUNT 3.35 10^6/uL (4.30-6.10); WHITE BLOOD COUNT 8.7 10^3/uL (4.0-10.0)
[2021-02-06] MEDS: PANTOPRAZOLE 40MG TAB (PROTONIX) PO SCH ×2 (09:27→20:43)
[2021-02-06] MEDS: NYSTATIN 100,000 UNITS/GM TOPICAL PWD 15 GM TOP SCH ×2 (09:31→20:45)
[2021-02-06] MEDS: TORSEMIDE 100 MG TAB PO SCH (09:39)
[2021-02-06] MEDS: PRAVASTATIN 20 MG TAB PO SCH (09:40)
[2021-02-06] MEDS: AMIODARONE 200 MG TAB (PACERONE) PO SCH (09:40)
[2021-02-06] MEDS: METOPROLOL TART 50 MG TAB PO SCH ×2 (09:40→20:43)
[2021-02-06] MEDS: OXcarbazepine 300 MG TAB PO SCH ×2 (10:29→20:42)
--- NOTE | 2021-02-06 12:29 | IPN ---
NEPHROLOGY PROGRESS NOTE DATE: 02/06/2021 SUBJECTIVE: Mr. Muse seen this morning on his bedside. He is feeling much better today and is very happy as he slept very well last night. He reports that last night was the first time he slept good. He was dialyzed yesterday and we were able to remove another 2.5 liters of fluid. His breathing is much better now. He denies any nausea, vomiting, fever or chills. He still has no or minimal urine output. He feels that he had some urine output when he had a bowel movement, but otherwise he has not urinated. PHYSICAL EXAMINATION: Temperature 97 degrees Fahrenheit, heart rate 85 per minute and respiratory rate 20 per minute. Blood pressure 121/73 mmHg and oxygen saturation 100% on 2 liters of oxygen. Head: Atraumatic. Neck: Supple and JVD not abnormally elevated. A right internal jugular vein hemodialysis catheter is in place. Heart: Sounds are regular. Lungs: Much clearer today with occasional rales. Abdomen: Soft and nontender and bowel sounds are normal. Extremities: Without any cyanosis or clubbing. Neurologically: He is awake, at his baseline mentation and without any focal neurological deficit. LABORATORY DATA: Today's labs show: WBC count down to 8.7, hemoglobin 8.5, hematocrit 30 and platelets 228. Sodium 142, potassium 3.8, CO2 27, BUN 16, creatinine 2.08, calcium 8.8, magnesium 2. PROBLEMS/PLAN: 1. Congestive heart failure: Volume status has improved with aggressive fluid removal and dialysis. Unfortunately he has minimal urine output and has not responded to diuretics. He is likely to remain dependent on dialysis. Patient and his family wish to do peritoneal dialysis. At present there is no emergent need for dialysis today and we are going to plan for next dialysis tomorrow. 2. End-stage renal disease: Patient has advanced chronic kidney disease at baseline. He has a prior history of acute renal failure requiring temporary dialysis and this time again he has superimposed acute renal failure with no recovery of kidney function so far. He has minimal urine output. I am not very optimistic that he has a significant chance for improvement in kidney function. He is likely to remain dependent on dialysis. We will plan next hemodialysis tomorrow. I am also requesting a surgical consult with Dr. Fermin Graff for peritoneal dialysis catheter placement. We will try to get his peritoneal catheter placed before he leaves the hospital. 3. Anemia: His anemia is stable at present and he remains on Aranesp once a week with dialysis. He is also receiving intravenous iron with every hemodialysis. 4. Pneumonia: Patient is receiving Zosyn 4.5 grams q12h. I would recommend to adjust the dose for end-stage renal disease. 5. Atrial fibrillation: His ventricular rate is very well controlled on amiodarone and metoprolol.
--- NOTE | 2021-02-06 13:47 | IPNPDOC ---
Date Seen The patient was seen on 02/06/21. Progress Note SUBJECTIVE: had Tmax `100.2 despite zosyn. no chills, no cough. denies dysuria, urgency, frequency. permacath placed. OBJECTIVE: PE: VITALS: see below General: Awake, alert, oriented to person and place, answering questions appropriately in no distress. sitting on chair at the bedside w daughter in the room. no use of resp acc mm HEENT:EOMI moist mm No JVD, no thyromegaly, no cervical lymphadenopathy. Lungs: Diminished. no w/r/r AEBE. no kyphoscolisis. Heart: S1 and S2 sinus rhythm. Abdomen: Soft, nontender, nondistended, positive bowel sounds. Extremities: No cyanosis or clubbing; with bilateral trace to 1+ pitting edema. LABORATORY DATA/IMAGING STUDIES/MICROBIOLOGY: Have been reviewed. ASSESSMENT: 85-year-old male with history of congestive heart failure, EF of 45%, CKD stage 4, baseline GFR of 20-30, severe pulmonary hypertension, moderate tricuspid regurgitation, chronic afib, CAD, sleep apnea, herpes encephalitis with seizures, subdural hematoma, cognitive impairment, obesity with prior admission to [facility] for septic shock requiring temporary dialysis 2-3 treatments, heart block requiring pacemaker and treatment for pneumonia. He presented due to complaints of dyspnea, was extremely hypoxic requiring Vapotherm with chest x-ray showing pulmonary edema, bilateral infiltrates. Treated for multifocal pneumonia with antibiotics and emergent dialysis via a right internal jugular catheter placed by pouncer. Patient requires a Permacath since he remains oliguric. ACTIVE ISSUES: 1. Multifocal pneumonia. zosyn since admission. no cough. neg covid/blood cx to complete 7days course. vanco dced due to neg mrsa. 2. Congestive heart failure, acute on chronic decompensated systolic and diastolic heart failure exacerbation requiring emergency dialysis. resolved w dialysis managed by nephrology. 3. End-stage renal disease on dialysis during this admission. Prior history of stage 4 with baseline GFR 20-30.permacath placed by vascular. emergency right IJ placed by ICU MD. 4. Acute hypoxic respiratory failure due to CHF and pneumonia, resolved after dialysis. much more comfortable now w.o distress 5. Chronic afib. Eliquis resumed after Permacath placement. 6. Acute encephalopathy due to CHF and pneumonia. resolved 7. Anemia of chronic disease. defer to nephrology for venofer. 8. Hypothyroidism. on synthroid 9. History of seizures, subdural hematoma and herpes encephalitis on chronic cognitive impairment. 10. Obesity. 11. Aspiration requiring dysphagia diet. disposition: awaiting dialysis chair as outpt. monitor for recurrent fevers and r/o line sepsis. repeat blood cx if 100.4 temp VS, I&O, 24H, Fishbone Vital Signs/I&O Vital Signs Date Time Temp Pulse Resp B/P (MAP) Pulse Ox O2 Delivery O2 Flow Rate FiO2 02/06/21 09:40 85 121/73 02/06/21 09:00 2.0 02/06/21 06:00 97.1 20 100 Nasal Cannula 02/01/21 14:30 75 I&O- Last 24 Hours up to 6 AM 02/06/21 06:00 Intake Total 1080 ml Output Total 2500 ml Balance -1420 ml Laboratory Data 24H LABS Laboratory Tests 2 02/06/21 06:45: Immature Granulocyte % (Auto) 0.7, Neutrophils (%) (Auto) 72.3H, Lymphocytes (%) (Auto) 9.4L, Monocytes (%) (Auto) 9.3H, Eosinophils (%) (Auto) 7.3H, Basophils (%) (Auto) 1.0, Neutrophils # (Auto) 6.3, Lymphocytes # (Auto) 0.8L, Monocytes # (Auto) 0.8, Eosinophils # (Auto) 0.6H, Basophils # (Auto) 0.1, Nucleated Red Blood Cells % (auto) 0.0, Anion Gap 6L, Glomerular Filtration Rate 32.5L, Calcium Level 8.8, Magnesium Level 2.0 CBC/BMP Laboratory Tests 02/06/21 06:45 Microbiology Microbiology 01/31/21 Blood Culture - Final, Complete NO GROWTH AFTER 5 DAYS 01/31/21 Blood Culture - Final, Complete NO GROWTH AFTER 5 DAYS KLARISSA STALLWORTH MD Feb 06, 2021 13:47
[2021-02-06 14:21] VITALS: BP 120/72
[2021-02-06] MEDS: CICLOPIROX 0.77% TOP SCH (20:42)
[2021-02-06] MEDS: traZODone 50 MG TAB PO PRN (20:43)
[2021-02-06 22:00] VITALS: BP 129/78
[2021-02-07] MEDS: PIPERACILLIN/TAZOBACTAM SOD 4.5 GM in D5W MINI-BAG PLUS 50 ML IV SCH ×2 (05:34→17:03)
[2021-02-07] MEDS: LEVOTHYROXINE 75MCG TABLET (0.075MG) PO SCH (05:34)
[2021-02-07 06:00] VITALS: BP 129/77
[2021-02-07 06:38] LABS: BASO # 0.1 10^3/uL (0.0-0.2); BASO % 0.8 % (0.0-1.0); EOS # 0.6 10^3/uL (0.0-0.5); EOS % 6.6 % (0.0-3.0); HEMATOCRIT 30.7 % (42.0-52.0); HEMOGLOBIN 8.7 g/dl (13.5-17.5); LYMPH # 0.9 10^3/uL (1.5-5.0); LYMPH % 9.2 % (24.0-44.0); MEAN CORPUSCULAR HEMOGLOBIN 25.3 pg (27.0-33.0); MEAN CORPUSCULAR HGB CONC 28.3 g/dl (32.0-36.5); MEAN CORPUSCULAR VOLUME 89.2 fl (80.0-96.0); MONO % 10.3 % (2.0-8.0); NEUTROPHILS # 6.9 10^3/uL (1.5-8.5); NEUTROPHILS % 72.1 % (36.0-66.0); PLATELET COUNT, AUTOMATED 230 10^3/uL (150-450); RED BLOOD COUNT 3.44 10^6/uL (4.30-6.10); WHITE BLOOD COUNT 9.6 10^3/uL (4.0-10.0)
[2021-02-07 07:05] LABS: CALCIUM LEVEL 9.1 MG/DL (8.8-10.2); CREATININE FOR GFR 2.67 MG/DL (0.70-1.30); GLOMERULAR FILTRATION RATE 24.3 (>35); MAGNESIUM LEVEL 2.1 MG/DL (1.8-2.4); POTASSIUM SERUM 3.4 MEQ/L (3.5-5.1)
[2021-02-07] MEDS ORDERED: POTASSIUM CHLORIDE 10MEQ SR TABLET PO ONE (07:30)
[2021-02-07] MEDS: TORSEMIDE 100 MG TAB PO SCH (08:19)
[2021-02-07] MEDS: PANTOPRAZOLE 40MG TAB (PROTONIX) PO SCH ×2 (08:19→21:47)
[2021-02-07] MEDS: OXcarbazepine 300 MG TAB PO SCH ×2 (08:20→21:46)
[2021-02-07] MEDS: AMIODARONE 200 MG TAB (PACERONE) PO SCH (08:20)
[2021-02-07] MEDS: METOPROLOL TART 50 MG TAB PO SCH ×2 (08:20→21:47)
[2021-02-07] MEDS: PRAVASTATIN 20 MG TAB PO SCH (08:20)
[2021-02-07] MEDS: CICLOPIROX 0.77% TOP SCH ×2 (08:20→21:48)
[2021-02-07] MEDS: NYSTATIN 100,000 UNITS/GM TOPICAL PWD 15 GM TOP SCH ×2 (08:21→21:48)
--- NOTE | 2021-02-07 12:48 | IPNPDOC ---
Text Note Date of Service The patient was seen on 02/07/21. NOTE per RN, pt was exposed to COVID-19. PLAN: Despite negative covid on 01/31/21, pt needs to be on quarantine and monitored for symptoms. contact and droplet precautions. Subjective: Patient seen and examined at bedside. No acute overnight events reported. Patient voices no new medical complaints this morning. Objective: Vital Signs: reviewed General: NAD, lying comfortably in bed HEENT: NC/AT, EOMI Neck: supple, no masses Chest: lungs CTA B/L Heart: +S1S2, RRR Abd: soft, NT, ND, +BS Ext: no edema Skin: no rashes MSK: full ROM at large joints Neuro: no gross focal deficits Psych: AAOx3 A/P: 85M with PMHx including HFrEF, EF of 45%, CKD stage 4, baseline GFR of 20-30, severe pulmonary hypertension, moderate tricuspid regurgitation, chronic afib, CAD, sleep apnea, herpes encephalitis with seizures, subdural hematoma, cognitive impairment, obesity with prior admission to [facility] for septic shock requiring temporary dialysis 2-3 treatments, heart block requiring pacemaker and treatment for pneumonia. He presented due to complaints of dyspnea, was extremely hypoxic requiring Vapotherm with chest x-ray showing pulmonary edema, bilateral infiltrates. Treated for multifocal pneumonia with antibiotics and emergent dialysis via a right internal jugular catheter placed by atg java developer. Patient requires a Permacath since he remains oliguric. #Multifocal pneumonia. zosyn since admission. no cough. neg covid/blood cx to complete 7days course. vanco dced due to neg mrsa. #Congestive heart failure, acute on chronic decompensated systolic and diastolic heart failure exacerbation requiring emergency dialysis. resolved w dialysis managed by nephrology. #End-stage renal disease on dialysis during this admission. Prior history of stage 4 with baseline GFR 20-30.permacath placed by vascular. emergency right IJ placed by ICU MD. #Acute hypoxic respiratory failure due to CHF and pneumonia, resolved after dialysis. much more comfortable now w.o distress #Chronic afib. Eliquis resumed after Permacath placement. #Acute encephalopathy due to CHF and pneumonia. resolved #Anemia of chronic disease. defer to nephrology for venofer. #Hypothyroidism. on synthroid #History of seizures, subdural hematoma and herpes encephalitis on chronic cognitive impairment. # Obesity. # Aspiration requiring dysphagia diet. disposition: awaiting dialysis chair as outpt. monitor for recurrent fevers and r/o line sepsis. repeat blood cx if 100.4 temp VS,Fishbone, I+O VS, Fishbone, I+O Laboratory Tests 02/07/21 06:27 Vital Signs Date Time Temp Pulse Resp B/P (MAP) Pulse Ox O2 Delivery O2 Flow Rate FiO2 02/07/21 09:00 2.0 02/07/21 08:20 86 128/75 02/07/21 06:00 97.2 18 97 Nasal Cannula 02/01/21 14:30 75 I&O- Last 24 Hours up to 6 AM 02/07/21 06:00 Intake Total 1320 ml Output Total 675 ml Balance 645 ml SUKH GUZMÁN MD Feb 07, 2021 12:48
[2021-02-07 14:00] VITALS: BP 105/68
--- NOTE | 2021-02-07 14:38 | IPN ---
NEPHROLOGY PROGRESS NOTE DATE: 02/07/2021 SUBJECTIVE: Mr. Muse is seen this morning on his bedside. His daughter is present in the room, who is staying with him from [place]. Patient is feeling better and denies any nausea or vomiting. He had a good breakfast this morning. He reports that he slept well last night. He did make about just under 700 mL of urine yesterday; however, urine output remains minimal today. He has been receiving torsemide 100 mg daily. We did not dialyze him as we wanted to assess his renal function with 24 hour urine output. PHYSICAL EXAMINATION: VITAL SIGNS: Temperature 97.2 degrees Fahrenheit, heart rate 86 per minute, respiratory rate 18 per minute, blood pressure 128/75 mmHg, oxygen saturation 97% on 2 liters oxygen. HEAD: Atraumatic. NECK: Supple and jugular venous distention (JVD) is moderately elevated. Hemodialysis catheter in right internal jugular vein is intact. HEART SOUNDS: Regular. LUNGS: Have a few scattered rhonchi. ABDOMEN: Soft and nontender. Bowel sounds are normal. EXTREMITIES: Without any cyanosis or clubbing. He does have trace edema on his legs. NEUROLOGIC: He is awake, alert and oriented times three. LABORATORY DATA: Today's labs show WBC count 9.6, hemoglobin 8.7, hematocrit 30.7. Sodium, 142, potassium 3.4, CO2 27, BUN 22, creatinine 2.67, glucose 91, calcium 9.1. PROBLEMS: 1. Acute renal failure superimposed on chronic kidney disease. Patient remains oliguric. He is receiving torsemide 100 mg daily; however, urine output is still minimal. We are going to collect urine for 24 hours to assess creatinine clearance. No dialysis today and we will plan his next dialysis for tomorrow. 2. Congestive heart failure. Volume status significantly improved since admission, mostly since dialysis and fluid removal. He is slightly decompensated and we want to see how his 24 hour urine output is. Tomorrow we will plan to dialyze him and remove about 2.5 to 3 liters of fluid. 3. Anemia. At present, his anemia is stable and he is receiving Aranesp with dialysis. 4. Hypertension. Blood pressure very well controlled and no changed are being made. DISPOSITION: I discussed with his daughter at length about possibility of requiring terminal makeup operator maintenance dialysis. She understands and arrangements are already being made. Once we determine and confirm that he will need terminal makeup operator dialysis, then he can probably be discharged to home. NAVYA
[2021-02-07 20:36] VITALS: BP 132/77
[2021-02-07] MEDS: traZODone 50 MG TAB PO PRN (21:46)
[2021-02-08] MEDS: PIPERACILLIN/TAZOBACTAM SOD 4.5 GM in D5W MINI-BAG PLUS 50 ML IV SCH ×2 (05:20→18:30)
[2021-02-08] MEDS: LEVOTHYROXINE 75MCG TABLET (0.075MG) PO SCH (05:20)
[2021-02-08 05:27] VITALS: BP 133/76
[2021-02-08] MEDS ORDERED: SODIUM CHLORIDE 0.9% 1000ML IV PRN (07:40)
[2021-02-08 08:29] LABS: ALBUMIN 2.3 GM/DL (3.2-5.2); CALCIUM LEVEL 8.8 MG/DL (8.8-10.2); CREATININE FOR GFR 2.58 MG/DL (0.70-1.30); GLOMERULAR FILTRATION RATE 25.3 (>35); POTASSIUM SERUM 3.4 MEQ/L (3.5-5.1)
[2021-02-08 09:20] VITALS: BP 128/74
[2021-02-08] MEDS: OXcarbazepine 300 MG TAB PO SCH (09:32)
[2021-02-08] MEDS: TORSEMIDE 100 MG TAB PO SCH (09:32)
[2021-02-08 09:33] VITALS: BP 128/74
[2021-02-08] MEDS: AMIODARONE 200 MG TAB (PACERONE) PO SCH (09:33)
[2021-02-08] MEDS: PANTOPRAZOLE 40MG TAB (PROTONIX) PO SCH (09:33)
[2021-02-08] MEDS: CICLOPIROX 0.77% TOP SCH (09:33)
[2021-02-08] MEDS: PRAVASTATIN 20 MG TAB PO SCH (09:33)
[2021-02-08] MEDS: METOPROLOL TART 50 MG TAB PO SCH (09:33)
[2021-02-08] MEDS: NYSTATIN 100,000 UNITS/GM TOPICAL PWD 15 GM TOP SCH (09:34)
[2021-02-08] MEDS ORDERED: AMOX500T2 PO (09:35)
[2021-02-08 12:40] LABS: CREATININE, SERUM 2.6 MG/DL (0.6-1.3)
[2021-02-08 13:14] LABS: CREATININE CLEARANCE, URINE 11.8 ML/MIN (85-125); CREATININE, URINE 88.6 MG/DL
[2021-02-08] MEDS ORDERED: TORS100T PO (14:10)
[2021-02-08] MEDS: IRON SUCROSE 100MG 5ML VIAL (J1756 PER 1MG) IV SCH (14:45)
--- NOTE | 2021-02-08 16:54 | DS.PDOC ---
Discharge Summary General Date of Admission Jan 31, 2021 at 18:40 Date of Discharge 02/08/21 Discharge Summary PROCEDURES PERFORMED DURING STAY: [None]. DISCHARGE DIAGNOSES: #Multifocal pneumonia. #HFrEF, EF of 45% #CKDIV #severe pulmonary HTN #moderate tricuspid regurgitation #chronic afib #CAD #TY #Congestive heart failure, acute on chronic decompensated systolic and diastolic #End-stage renal disease on dialysis #Acute hypoxic respiratory failure due to CHF and pneumonia #Chronic afib. Eliquis resumed after Permacath placement. #metabolic encephalopathy due to CHF and pneumonia #Anemia of chronic disease #Hypothyroidism #History of seizures, subdural hematoma and herpes encephalitis with chronic cognitive impairment. # Obesity. # Aspiration requiring dysphagia diet. COMPLICATIONS/CHIEF COMPLAINT: Chf (Congestive Heart Failure), Pneumonia. HISTORY OF PRESENT ILLNESS: From [place] [place] is an 85 year old male with a PMHx of A. 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 Majority of HPI obtained by patient's daughter and medical proxy, Purvi, and patient's -although limitation to exam as patient's has trouble speaking at times. Patient recently discharged from [facility] after treatment of pneumonia and pacemaker placement. Patient had 2 separate admissions from 01/09-01/15 for complete heart block and permanent pacer placement and then returned 01/16 due to shortness of breath and cough and was treated for pneumonia with Zosyn and discharged 01/22. Upon discharge, pt reportedly "never fully recovered" from his pneumonia. He was started on Augmentin p.o. outpatient by PCP during his follow-up but p rogressively worsened. Patient has had notable SOB and inc WOB in past 36 hours per . Patient with "wet cough" but nonproductive. Afebrile but reported chills. Patient has been using 3 L nasal cannula nocturnally but due to his shortness of breath he has had to increase to 4 L continuously. Endorses bilateral lower extremity swelling, + orthopnea. Of note, patient did have recent fall to left hip and subsequent bruising. Additionally, patient has pressure injury to bottom and progressive deconditioning over the past few months. Plans for home health nurse and physical therapy to be started. Pt denies mata, sinus congestion, sore throat, palpitations, chest pain, n/v/d, abdominal pain, sensory changes or syncope. He is alert and oriented to self place and situation. He has known history of short-term memory loss given his underlying cognitive impairment since his encephalitis and encephalomalacia. He requires redirection during the admission process and as he becomes more fatigued and begins to display sundowning type behavior. This is not abnormal for pt and family endorses confusion is often exacerbated by illness and hospital admissions. Of note, patient with BTNP 17344, K5.2, creatinine 3.7, lactic 2.3, WBC 14.9, hemoglobin 9.5, pH 7.28, CT chest moderate right pleural effusion and small left pleural effusion, multifocal bilateral upper lobe opacities consistent with pneumonia. Patient will be admitted for further evaluation management presenting concern HOSPITAL COURSE: 85M with PMHx including HFrEF, EF of 45%, CKD stage 4, baseline GFR of 20-30, severe pulmonary hypertension, moderate tricuspid regurgitation, chronic afib, CAD, sleep apnea, herpes encephalitis with seizures, subdural hematoma, cognitive impairment, obesity with prior admission to [facility] for septic shock requiring temporary dialysis 2-3 treatments, heart block requiring pacemaker and treatment for pneumonia. He presented due to complaints of dyspnea, was extremely hypoxic requiring Vapotherm with chest x-ray showing pulmonary edema, bilateral infiltrates. Treated for multifocal pneumonia with antibiotics and emergent dialysis via a right internal jugular catheter placed by manager educational. #Multifocal pneumonia. zosyn since admission. no cough. neg covid/blood cx - discharged with augmentin vanco dced due to neg mrsa. #Congestive heart failure, acute on chronic decompensated systolic and diastolic heart failure exacerbation requiring emergency dialysis. resolved w dialysis managed by nephrology. - grossly compensated and euvolemic #End-stage renal disease on dialysis during this admission. Prior history of stage 4 with baseline GFR 20-30.permacath placed by vascular. #Acute hypoxic respiratory failure due to CHF and pneumonia - resolved after dialysis #Chronic afib. Eliquis resumed after Permacath placement. #Acute encephalopathy due to CHF and pneumonia. resolved #Anemia of chronic disease. defer to nephrology for venofer. #Hypothyroidism. on synthroid #History of seizures, subdural hematoma and herpes encephalitis with chronic cognitive impairment. # Obesity. # Aspiration requiring dysphagia diet. DISCHARGE MEDICATIONS: Please see below. ALLERGIES: Please see below. PHYSICAL EXAMINATION ON DISCHARGE: Vital Signs: reviewed General: NAD, lying comfortably in bed HEENT: NC/AT, EOMI Neck: supple, no masses Chest: lungs CTA B/L Heart: +S1S2, RRR Abd: soft, NT, ND, +BS Ext: no edema Skin: no rashes MSK: full ROM at large joints Neuro: no gross focal deficits Psych: AAOx3 LABORATORY DATA: Please see below. ACTIVITY: [As tolerated]. DISCHARGE INSTRUCTIONS: 1. PCP in 3-5 days 2. nephrology/HD as scheduled DISCHARGE CONDITION: [Stable]. TIME SPENT ON DISCHARGE: 35 minutes. Vital Signs/I&Os Vital Signs Date Time Temp Pulse Resp B/P (MAP) Pulse Ox O2 Delivery O2 Flow Rate FiO2 02/08/21 09:33 89 128/74 02/08/21 05:27 97.8 16 96 Nasal Cannula 2.0 I&O- Last 24 Hours up to 6 AM 02/08/21 06:00 Intake Total 1210 ml Output Total 300 ml Balance 910 ml Laboratory Data Labs 24H Laboratory Tests 2 02/08/21 07:05: Anion Gap 7L, Glomerular Filtration Rate 25.3L, Calcium Level 8.8, Phosphorus Level 3.0, Albumin 2.3L 02/08/21 09:12: Urine Creatinine 88.6, Urine Creatinine 24 Hour 443.0L, Creatinine Clearance 11.8L, Urine Total Volume (Protein) 500 CBC/BMP Laboratory Tests 02/08/21 07:05 02/08/21 09:12 Microbiology Microbiology 01/31/21 Blood Culture - Final, Complete NO GROWTH AFTER 5 DAYS 01/31/21 Blood Culture - Final, Complete NO GROWTH AFTER 5 DAYS Discharge Medications Scheduled Amiodarone HCl (Amiodarone HCl) 200 Mg Tablet, 200 MG PO DAILY, (Reported) Amlodipine Besylate (Amlodipine Besylate) 5 Mg Tablet, 5 MG PO DAILY, (Reported) Amoxicillin/Potassium Clav (Amox-Clav 500-125 mg Tablet) 1 Each Tablet, 500 MG PO BID Apixaban (Eliquis) 2.5 Mg Tab, 2.5 MG PO BID, (Reported) Levothyroxine Sodium (Levothyroxine Sodium) 75 Mcg Tablet, 75 MCG PO DAILY, (Reported) Lisinopril (Lisinopril) 10 Mg Tablet, 10 MG PO DAILY, (Reported) Metoprolol Tartrate (Metoprolol Tartrate) 50 Mg Tablet, 50 MG PO BID, (Reported) Oxcarbazepine (Oxcarbazepine) 150 Mg Tab, 300 MG PO BID, (Reported) Pantoprazole Sodium (Pantoprazole Sodium) 40 Mg Tablet.dr, 40 MG PO BID, (Reported) Potassium Chloride (K-Tab ER) 20 Meq Tab, 20 MEQ PO BID, (Reported) Pravastatin Sodium (Pravastatin Sodium) 20 Mg Tablet, 20 MG PO DAILY, (Reported) Torsemide (Torsemide) 100 Mg Tablet, 100 MG PO DAILY, (Reported) Torsemide (Torsemide) 100 Mg Tablet, 100 MG PO DAILY Trazodone HCl (Trazodone HCl) 50 Mg Tab, 25 MG PO QHS, (Reported) Allergies Coded Allergies: spironolactone (Unverified Adverse Reaction, Mild, "BREAST LUMP", 11/10/20) SUKH GUZMÁN MD Feb 08, 2021 16:54
[2021-02-08] MEDS ORDERED: POTASSIUM CHLORIDE 10MEQ SR TABLET PO ONE (18:00)
--- NOTE | 2021-02-08 18:39 | IPN ---
PROGRESS NOTE DATE: 02/08/2021 SUBJECTIVE: Mr. Muse is seen this morning on his bedside. He is sitting in the chair and reports a nose bleed. He was able to stop it and feels okay now. He denies any nausea or vomiting. He is still oxygen via nasal cannula. He completed his 24-hour urine and volume was only just below 400 mL despite high dose diuretic use. PHYSICAL EXAMINATION: VITALS: Temperature 97.8 degrees Fahrenheit, heart rate 88 per minute, respiratory rate 16 per minute, blood pressure 128/74 mmHg, oxygen saturation 96% on 2 liters oxygen. HEENT: Head is atraumatic. Neck is supple and JVD is about 10 cm above sternal angle. Right internal jugular vein hemodialysis catheter is in place. HEART: Heart sounds are regular. LUNGS: With scattered rhonchi. ABDOMEN: Soft and nontender. Bowel sounds are normal. EXTREMITIES: Without any cyanosis or clubbing. NEUROLOGIC: He is awake, alert and oriented x3. LABORATORY DATA: Today's labs show sodium 142, potassium 3.4, CO2 26, BUN 23, creatinine 2.6. 24-hour urine; creatinine clearance is only 11.8 and urine volume was just about 400 mL. PROBLEMS: 1. End-stage renal disease: Patient has GFR of just below 12 and major problem with congestive heart failure and volume overload. He has been receiving 100 mg Torsemide and still not responding. It is likely that he will be dialysis dependent for the rest of his life. He is going to be hemodialyzed this afternoon and then he will continue with dialysis as an outpatient. In the long-term, he wants to switch to peritoneal dialysis and we will try to get a peritoneal dialysis catheter placed as soon as possible. 2. Congestive heart failure: Patient remains decompensated and not responding very well to high-dose diuretic. He is dialysis dependent and we will try to remove 3 liters of fluid with dialysis. 3. Hypokalemia: He has mild hypokalemia related to poor oral intake and diuretic use. We will dialyze him with 3.0 mEq potassium bath and he can be given one dose of potassium chloride in order to correct the deficit. 4. Anemia: His anemia has been stable and he is receiving Aranesp once a week with dialysis. Note; this will be managed as an outpatient. 5. Atrial fibrillation: His ventricular rate has been well controlled and he remains on Eliquis and beta-shekhar. DISPOSITION: From a renal standpoint, patient can be discharged to home after dialysis today or tomorrow morning. He already has a slot for outpatient dialysis on Thursday. I have explained to the patient and answered all his questions. I discussed with his daughter at length yesterday and answered all questions too.
== END 2021-02-08 19:09 | disposition home health service (06) | DRG 177 ==
LOC: M ED 14:40 → M ED INP 18:40 → ENRESERV 02-01 17:56 → M PCU 02-01 18:45 → M MS5PR 02-03 08:55
PROVIDERS: ADMIT General Practice; ATTEND Internal Medicine
PROC: 02HV33Z Insertion of Infusion Device into Superior Vena Cava, Percutaneous Approach (ICD-10-PCS; principal; 2021-02-01)
PROC: 5A1D70Z Performance of Urinary Filtration, Intermittent, Less than 6 Hours Per Day (ICD-10-PCS; 2021-02-01)
PROC: 0JH63XZ Insertion of Tunneled Vascular Access Device into Chest Subcutaneous Tissue and Fascia, Percutaneous Approach (ICD-10-PCS; 2021-02-05)
PROC: 02H633Z Insertion of Infusion Device into Right Atrium, Percutaneous Approach (ICD-10-PCS; 2021-02-05)
DX: J69.0 Pneumonitis due to inhalation of food and vomit (principal); I50.43 Acute on chronic combined systolic (congestive) and diastolic (congestive) heart failure; J96.21 Acute and chronic respiratory failure with hypoxia; N18.6 End stage renal disease; I13.2 Hypertensive heart and chronic kidney disease with heart failure and with stage 5 chronic kidney disease, or end stage renal disease; N17.9 Acute kidney failure, unspecified; E87.2 Acidosis; I48.20 Chronic atrial fibrillation, unspecified; I25.10 Atherosclerotic heart disease of native coronary artery without angina pectoris; G47.33 Obstructive sleep apnea (adult) (pediatric); E87.5 Hyperkalemia; G31.84 Mild cognitive impairment of uncertain or unknown etiology; E66.9 Obesity, unspecified; N40.0 Benign prostatic hyperplasia without lower urinary tract symptoms; I27.20 Pulmonary hypertension, unspecified; D50.9 Iron deficiency anemia, unspecified; I25.2 Old myocardial infarction; I36.1 Nonrheumatic tricuspid (valve) insufficiency; Z20.822 Contact with and (suspected) exposure to COVID-19; Z79.01 Long term (current) use of anticoagulants; Z79.899 Other long term (current) drug therapy; Z88.8 Allergy status to other drugs, medicaments and biological substances; Z95.0 Presence of cardiac pacemaker; Z99.2 Dependence on renal dialysis; Z68.28 Body mass index [BMI] 28.0-28.9, adult

== ENCOUNTER 2021-02-11 16:58 | Emergency (ER) | payer MEDICARE ==
[~2021-02-11] VITALS: Ht 177.8 cm; Wt 84.9 kg
[~2021-02-11 16:58] MED LIST changes: +AMIO200T3 PO; +AMOX500T2 PO; +EPLE25TA PO; +LISI10TA22 PO; +METO50TA7 PO; +PANT40TA29 PO
[2021-02-11 17:01] VITALS: BP 162/72
== END 2021-02-11 20:40 | disposition left against medical advice (07) ==
LOC: M ED 16:58
DX: Z53.21 Procedure and treatment not carried out due to patient leaving prior to being seen by health care provider (principal)

== ENCOUNTER → 2021-04-26 | Outpatient (CLI) | payer MEDICARE ==
[~2021-04-26] MED LIST changes: -AMIO200T3 PO; +AMIO200T49 PO; +BUSP1TAB PO; +VITMTA PO
== END ==
LOC: M LABSMTC 10:19
PROVIDERS: ATTEND Anesthesiology
DX: Z01.818 Encounter for other preprocedural examination (principal); Z11.52 Encounter for screening for COVID-19

== ENCOUNTER → 2021-05-06 | Outpatient (CLI) | payer MEDICARE | LOC: M LABSMTC 11:59 | PROVIDERS: ATTEND Anesthesiology | DX: Z01.812 Encounter for preprocedural laboratory examination (principal); Z20.822 Contact with and (suspected) exposure to COVID-19 ==

== ENCOUNTER 2021-05-10 06:16 | Day surgery (SDC) | payer MEDICARE ==
[~2021-05-10] VITALS: Ht 177.8 cm; Wt 83.0 kg
[~2021-05-10 06:16] MED LIST changes: +D5W/0.2% SODIUM CHLORIDE 1,000 ML IV ONE; +LR 1,000 ML IV ONE; +ceFAZolin SOD 2 GM in IV 1 EA IV ONE
[2021-05-10] MEDS ORDERED: ceFAZolin 2 GM/D5W 50 ML IV BAG (J0690 PER 500MG) As Ordered ONE (06:53)
[2021-05-10] MEDS ORDERED: HEPARIN SOD (PORCINE) 5000UNITS/ML 1ML VIAL/SYRINGE As Ordered ONE (07:11)
[2021-05-10] MEDS ORDERED: LIDOCAINE 1% MDV 20ML VIAL As Ordered ONE (07:11)
[2021-05-10] MEDS ORDERED: propofoL 200 MG/20 ML VIAL As Ordered ONE (07:56)
[2021-05-10] MEDS ORDERED: fentaNYL 100 MCG/2 ML INJECTION As Ordered ONE (07:56)
[2021-05-10] MEDS ORDERED: MIDAZOLAM INJ 2MG/2ML VIAL (J2250 PER 1MG) As Ordered ONE (07:56)
[2021-05-10] MEDS ORDERED: ETOMIDATE INJ 20MG/10ML VIAL As Ordered ONE (07:56)
[2021-05-10] MEDS ORDERED: oxyCODONE 5MG TAB PO PRN (09:20)
[2021-05-10] MEDS ORDERED: LR 1,000 ML IV SCH (09:20)
[2021-05-10] MEDS ORDERED: fentaNYL 100 MCG/2 ML INJECTION IV PRN (09:20)
[2021-05-10] MEDS ORDERED: ONDANSETRON 4MG/2ML VIAL IV PRN (09:20)
[2021-05-10] MEDS ORDERED: HYDR-4571 PO (09:26)
[2021-05-10 09:35] VITALS: BP 131/82
== END 2021-05-10 09:55 | disposition home or self-care (01) ==
LOC: M SDC 06:16
PROVIDERS: ATTEND Surgery
DX: N18.6 End stage renal disease (principal); Z99.2 Dependence on renal dialysis; I13.2 Hypertensive heart and chronic kidney disease with heart failure and with stage 5 chronic kidney disease, or end stage renal disease; I50.9 Heart failure, unspecified; N25.81 Secondary hyperparathyroidism of renal origin; E87.5 Hyperkalemia; I48.91 Unspecified atrial fibrillation; I27.20 Pulmonary hypertension, unspecified; I25.10 Atherosclerotic heart disease of native coronary artery without angina pectoris; E03.9 Hypothyroidism, unspecified; Z95.0 Presence of cardiac pacemaker; Z86.19 Personal history of other infectious and parasitic diseases; F41.9 Anxiety disorder, unspecified; R06.83 Snoring; G47.33 Obstructive sleep apnea (adult) (pediatric); I36.1 Nonrheumatic tricuspid (valve) insufficiency; G40.909 Epilepsy, unspecified, not intractable, without status epilepticus; K25.9 Gastric ulcer, unspecified as acute or chronic, without hemorrhage or perforation; G31.84 Mild cognitive impairment of uncertain or unknown etiology; Z79.899 Other long term (current) drug therapy; Z79.01 Long term (current) use of anticoagulants; Z88.8 Allergy status to other drugs, medicaments and biological substances; Z87.891 Personal history of nicotine dependence
CPT/HCPCS: 36415; 49421; 84132; J0690; J1644; J2250; J3010

== ENCOUNTER → 2021-05-29 | Outpatient (CLI) | payer MEDICARE ==
[~2021-05-29] MED LIST changes: +BARIUM SULFATE 700 MG TABLET (E-Z-DISK) As Ordered ONE; -D5W/0.2% SODIUM CHLORIDE 1,000 ML IV ONE; +E-Z-PAQUE 96% w/w SUSP 176GM BTL As Ordered ONE; +HYDR-4571 PO; -LR 1,000 ML IV ONE; +VARIBAR NECTAR 40% w/v 240ML SUSP BTL As Ordered ONE; +VARIBAR PUDDING 40% w/v 230ML TUBE As Ordered ONE; -ceFAZolin SOD 2 GM in IV 1 EA IV ONE
== END ==
LOC: M RAD 15:08
PROVIDERS: ATTEND Internal Medicine
DX: R13.10 Dysphagia, unspecified (principal)

== ENCOUNTER → 2021-06-25 | Outpatient (POV) | payer MEDICARE ==
[~2021-06-25] VITALS: Ht 177.8 cm; Wt 88.6 kg
[~2021-06-25] MED LIST changes: -BARIUM SULFATE 700 MG TABLET (E-Z-DISK) As Ordered ONE; -E-Z-PAQUE 96% w/w SUSP 176GM BTL As Ordered ONE; -VARIBAR NECTAR 40% w/v 240ML SUSP BTL As Ordered ONE; -VARIBAR PUDDING 40% w/v 230ML TUBE As Ordered ONE
[2021-06-25 13:45] VITALS: BP 143/70
== END ==
LOC: M IRPOV 13:41
PROVIDERS: ATTEND Radiology Diagnostic Radiology
DX: N18.6 End stage renal disease (principal); Z45.2 Encounter for adjustment and management of vascular access device; Z99.2 Dependence on renal dialysis; Z88.8 Allergy status to other drugs, medicaments and biological substances

== ENCOUNTER → 2021-07-24 | Outpatient (REF) | payer MEDICARE ==
[2021-07-24 19:41] LABS: BASOPHILS 1 % (0-1); EOSINOPHILS 2 % (0-3); LYMPHOCYTES 19 % (16-44); MONOCYTES 6 % (0-5); NEUTROPHILS 70 % (28-66)
[2021-07-24 19:42] LABS: PLATELET ESTIMATE NORMAL (NORMAL)
== END ==
LOC: M LAB REF 16:41
PROVIDERS: ATTEND Internal Medicine
DX: D72.89 Other specified disorders of white blood cells (principal)

== ENCOUNTER → 2021-10-09 | Outpatient (CLI) | payer MEDICARE ==
[~2021-10-09] MED LIST changes: +ALBU2.5V10 INH; -ALBU83IN INH
== END ==
LOC: M RAD 10:18
PROVIDERS: ATTEND Internal Medicine Nephrology
DX: K65.9 Peritonitis, unspecified (principal); N18.6 End stage renal disease

== ENCOUNTER → 2022-08-29 | Outpatient (REF) | payer MEDICARE ==
[2022-08-29 19:56] LABS: EOSINOPHILS 3 % (0-3); LYMPHOCYTES 17 % (16-44); METAMYELOCYTES 2 % (0-0); MONOCYTES 7 % (0-5); NEUTROPHILS 70 % (28-66)
[2022-08-29 19:57] LABS: PLATELET ESTIMATE NORMAL (NORMAL)
== END ==
LOC: M LAB REF 16:37
PROVIDERS: ATTEND Internal Medicine
DX: D72.9 Disorder of white blood cells, unspecified (principal)

== ENCOUNTER 2022-10-18 17:02 | Emergency (ER) | payer MEDICARE ==
[~2022-10-18] VITALS: Ht 175.3 cm; Wt 91.4 kg
[2022-10-18] MEDS ORDERED: ENTR1TAB7 (17:18)
[2022-10-18] MEDS ORDERED: EPLE25TA (17:18)
[2022-10-18] MEDS ORDERED: POTA-151 (17:18)
[2022-10-18] MEDS ORDERED: TORS100T (17:18)
[2022-10-18] MEDS ORDERED: VANCOMYCIN 1000MG/20ML VIAL IP STA (18:24)
[2022-10-18] MEDS ORDERED: GENTAMICIN SULF 80MG/2ML VIAL IP ONE (18:25)
[2022-10-18 18:50] LABS: VENOUS BASE EXCESS 0.9 (-2.0-2.0); VENOUS O2 SATURATION 72.9 % (60.0-80.0); VENOUS PARTIAL PRESSURE CO2 50.3 mmHg (38.0-50.0); VENOUS PARTIAL PRESSURE O2 43.3 mmHg (30.0-50.0); VENOUS PH 7.347 UNITS (7.330-7.430); VENOUS STANDARD HCO3 24.9 MMOL/L; VENOUS TOTAL CO2 28.5 MMOL/L (24.0-28.0)
[2022-10-18 19:23] LABS: ALBUMIN 2.7 G/DL (3.2-5.2); ALKALINE PHOSPHATASE 107 U/L (46-116); ALT/SGPT 14 U/L (7.0-40); AST/SGOT 15 U/L (<34); BILIRUBIN,DIRECT < 0.1 MG/DL (<0.4); BILIRUBIN,TOTAL 0.2 MG/DL (0.3-1.2); BLOOD UREA NITROGEN 55 MG/DL (9-23); CALCIUM LEVEL 8.9 MG/DL (8.3-10.6); CARBON DIOXIDE LEVEL 26 MMOL/L (20-31); CHLORIDE LEVEL 104 MMOL/L (98-107); CREATININE FOR GFR 3.08 MG/DL (0.70-1.30); GLOMERULAR FILTRATION RATE 20.5 (>35); GLUCOSE, FASTING 103 MG/DL (74-106); POTASSIUM SERUM 4.4 MMOL/L (3.5-5.1); SODIUM LEVEL 141 MMOL/L (136-145); TOTAL PROTEIN 5.8 G/DL (5.7-8.2)
[2022-10-18 19:25] LABS: OSMOLALITY SERUM 308 MOSM/KG (280-301); THYROID STIMULATING HORMONE 6.256 uIU/ML (0.55-4.78)
[2022-10-18 19:44] LABS: BASO # 0.1 10^3/uL (0.0-0.2); BASO % 0.5 % (0.0-1.0); EOS # 0.4 10^3/uL (0.0-0.5); HEMATOCRIT 25.9 % (42.0-52.0); HEMOGLOBIN 8.4 g/dl (13.5-17.5); LYMPH # 1.8 10^3/uL (1.5-5.0); LYMPH % 13.9 % (24.0-44.0); MEAN CORPUSCULAR HEMOGLOBIN 33.3 pg (27.0-33.0); MEAN CORPUSCULAR HGB CONC 32.4 g/dl (32.0-36.5); MEAN CORPUSCULAR VOLUME 102.8 fl (80.0-96.0); MONO # 0.8 10^3/uL (0.0-0.8); MONO % 6.1 % (2.0-8.0); NEUTROPHILS # 9.8 10^3/uL (1.5-8.5); NEUTROPHILS % 75.6 % (36.0-66.0); PLATELET COUNT, AUTOMATED 330 10^3/uL (150-450); RED BLOOD COUNT 2.52 10^6/uL (4.30-6.10)
[2022-10-18 20:31] LABS: PROCALCITONIN 0.29 ng/ml
[2022-10-18 21:15] VITALS: O2SAT 97
[2022-10-18 22:34] VITALS: BP 133/60; TEMP 96.5
[2022-10-18 22:48] LABS: APPEARANCE, BODY FLUID CLEAR (CLEAR); PERITONEAL FL COLOR COLORLESS (COLORLESS); SOURCE, BODY FLUID PERITONEAL
[2022-10-18 22:54] LABS: SOURCE, BODY FLUID ALBUMIN PERITONEAL
[2022-10-18 22:59] LABS: SOURCE, BODY FLUID GLUCOSE PERITONEAL
[2022-10-18 23:02] LABS: SOURCE, BODY FLUID TOT PROTEIN PERITONEAL; TOTAL PROTEIN, BODY FLUID < 2.0 G/DL (NOT ESTABLISHED)
== END 2022-10-18 22:49 | disposition left against medical advice (07) ==
LOC: M ED 17:02
DX: R41.82 Altered mental status, unspecified (principal); I48.91 Unspecified atrial fibrillation; I50.20 Unspecified systolic (congestive) heart failure; I25.10 Atherosclerotic heart disease of native coronary artery without angina pectoris; N18.9 Chronic kidney disease, unspecified; Z95.0 Presence of cardiac pacemaker; Z87.891 Personal history of nicotine dependence; Z88.8 Allergy status to other drugs, medicaments and biological substances; Z79.01 Long term (current) use of anticoagulants; Z79.899 Other long term (current) drug therapy
CPT/HCPCS: 36415; 71045; 80048; 80076; 82042; 82140; 82803; 82945; 83605; 83930; 84145; 84157; 84443; 85025; 87040; 87070; 87075; 87077; 87102; 87116; 87186; 87205; 87206; 87635; 89051; 93005; 93041; 94760; 99285; J1580

== ENCOUNTER → 2022-11-04 | Outpatient (REF) | payer MEDICARE ==
[~2022-11-04] MED LIST changes: +ENTR1TAB7; +POTA-151; +TORS100T
== END ==
LOC: M LAB REF 17:38
PROVIDERS: ATTEND Internal Medicine
DX: N18.9 Chronic kidney disease, unspecified (principal); D63.1 Anemia in chronic kidney disease

== ENCOUNTER → 2022-11-09 | Outpatient (CLI) | payer MEDICARE | LOC: M LAB 10:58 | PROVIDERS: ATTEND Internal Medicine | DX: D64.9 Anemia, unspecified (principal); N18.6 End stage renal disease ==

== ENCOUNTER 2022-11-10 09:51 | Outpatient (CLI) | payer MEDICARE ==
[2022-11-10] VITALS (8 sets, daily range): BP systolic 117–151; BP diastolic 58–81; TEMP 98.2–98.9; O2SAT 96–99
[2022-11-10] MEDS ORDERED: diphenhydrAMINE 25MG CAP PO ONE (10:35)
[2022-11-10] MEDS ORDERED: ACETAMINOPHEN TAB 650MG DOSE (2X325MG) PO ONE (10:35)
== END 2022-11-10 16:10 ==
LOC: M INFU 09:51
PROVIDERS: ATTEND Internal Medicine
DX: N18.6 End stage renal disease (principal); D63.1 Anemia in chronic kidney disease; Z88.8 Allergy status to other drugs, medicaments and biological substances
CPT/HCPCS: 36430; P9016

== ENCOUNTER → 2022-12-02 | Outpatient (REF) | payer MEDICARE ==
[2022-12-02 18:41] LABS: PERCENT SATURATION 27.1 % (19.7-50.0)
== END ==
LOC: M LAB REF 17:04
PROVIDERS: ATTEND Internal Medicine
DX: D50.9 Iron deficiency anemia, unspecified (principal); D63.1 Anemia in chronic kidney disease

== ENCOUNTER → 2023-01-26 | Outpatient (REF) | payer MEDICARE ==
[2023-01-27 14:58] LABS: PERCENT SATURATION 20.9 % (19.7-50.0)
== END ==
LOC: M LAB REF 12:45
PROVIDERS: ATTEND Internal Medicine
DX: D50.9 Iron deficiency anemia, unspecified (principal)

== ENCOUNTER → 2023-04-16 | Outpatient (REF) | payer MEDICARE ==
[2023-04-16 17:57] LABS: ATYPICAL LYMPH 9 % (0-5); BASOPHILS 1 % (0-1); MONOCYTES 8 % (0-5); NEUTROPHILS 82 % (28-66); PLATELET ESTIMATE NORMAL (NORMAL); SMUDGE CELLS 1+
== END ==
LOC: M LAB REF 16:33
PROVIDERS: ATTEND Nurse Practitioner Family
DX: D50.9 Iron deficiency anemia, unspecified (principal); D72.9 Disorder of white blood cells, unspecified

== ENCOUNTER → 2023-04-16 | Outpatient (CLI) | payer MEDICARE | LOC: M WUC 14:48 | PROVIDERS: ATTEND Nurse Practitioner Family | DX: I51.7 Cardiomegaly (principal); Z95.0 Presence of cardiac pacemaker; D50.9 Iron deficiency anemia, unspecified; D72.9 Disorder of white blood cells, unspecified ==

== ENCOUNTER → 2023-07-29 | Outpatient (REF) | payer OTHER ==
[~2023-07-29] MED LIST changes: +D 101000 PO; +ECOT81TA5 PO; +HYDR50TA70 PO; +LEVOTAB10 PO; +MAGN400C PO; +MM S100C PO; -POTA-151; +POTA-151 PO; +RENATAB5 PO; -TORS100T
[2023-07-29 18:12] LABS: EOSINOPHILS 2 % (0-3); LYMPHOCYTES 4 % (16-44); MONOCYTES 3 % (0-5); NEUTROPHILS 91 % (28-66)
[2023-07-29 18:13] LABS: ANISOCYTOSIS 1+; PLATELET ESTIMATE NORMAL (NORMAL)
== END ==
LOC: M LAB REF 16:37
PROVIDERS: ATTEND Internal Medicine
DX: D72.9 Disorder of white blood cells, unspecified (principal)

== ENCOUNTER 2023-08-05 07:37 | Day surgery (SDC) | payer OTHER ==
[~2023-08-05] VITALS: Ht 177.8 cm; Wt 91.8 kg
[~2023-08-05 07:37] MED LIST changes: -EPLE25TA; -EPLE25TA PO; +EPLE25TA2; +EPLE25TA2 PO; -EPLE50TA PO; +EPLE50TA8 PO; +PHENYLEPHRINE 10% OPHTH SOL 5ML OS PRN
[2023-08-05] MEDS: LIDOCAINE 3.5 % 1ML OPHTH TOPICAL GEL OU ONE (08:30)
[2023-08-05] MEDS: OFLOXACIN 0.3 % (OCUFLOX) OPTH SOL 5ML OS ONE (08:30)
[2023-08-05] MEDS: ATROPINE SULFATE 1% OPHTH SOLN 2ML BTL OS SCH (08:49)
[2023-08-05] MEDS: PHENYLEPHRINE 2.5% OPHTH SOL 2ML OS SCH (08:49)
[2023-08-05] MEDS: TROPICAMIDE 1% OPHTH SOLN 15ML OS SCH (08:49)
[2023-08-05] MEDS ORDERED: fentaNYL 100 MCG/2 ML INJECTION As Ordered ONE (09:03)
[2023-08-05] MEDS ORDERED: MIDAZOLAM INJ 2MG/2ML VIAL As Ordered ONE (09:04)
[2023-08-05] MEDS: BSS IRRIG/VANCO(10MG)/TOBRA(5MG)/EPINEPH(1:1000-0.5CC)500ML BAG-ORONLY As Ordered ONE (09:14)
[2023-08-05] MEDS: CEFUROXIME 1MG/0.1ML INTRACAMERAL INJ As Ordered ONE (09:14)
[2023-08-05] MEDS: LIDOCAINE 1% SDV 5ML VIAL As Ordered ONE (09:14)
[2023-08-05 09:34] VITALS: BP 145/83; TEMP 97.3; O2SAT 97
== END 2023-08-05 09:55 | disposition home or self-care (01) ==
LOC: M SDC 07:37
PROVIDERS: ATTEND Ophthalmology
DX: H25.12 Age-related nuclear cataract, left eye (principal); I48.91 Unspecified atrial fibrillation; I50.9 Heart failure, unspecified; G47.30 Sleep apnea, unspecified; I13.2 Hypertensive heart and chronic kidney disease with heart failure and with stage 5 chronic kidney disease, or end stage renal disease; E03.9 Hypothyroidism, unspecified; E78.00 Pure hypercholesterolemia, unspecified; K21.9 Gastro-esophageal reflux disease without esophagitis; Z95.2 Presence of prosthetic heart valve; N18.6 End stage renal disease; Z88.8 Allergy status to other drugs, medicaments and biological substances; Z79.899 Other long term (current) drug therapy; Z79.82 Long term (current) use of aspirin; Z79.01 Long term (current) use of anticoagulants; F41.9 Anxiety disorder, unspecified; F32.A Depression, unspecified; R56.9 Unspecified convulsions; Z79.890 Hormone replacement therapy
CPT/HCPCS: 36415; 66984; 84132; 92015; J0697; J2250; J3010

== ENCOUNTER 2023-08-26 08:46 | Day surgery (SDC) | payer OTHER ==
[~2023-08-26] VITALS: Ht 180.3 cm; Wt 89.7 kg
[~2023-08-26 08:46] MED LIST changes: +PHENYLEPHRINE 10% OPHTH SOL 5ML OD PRN; -PHENYLEPHRINE 10% OPHTH SOL 5ML OS PRN
[2023-08-26] MEDS: OFLOXACIN 0.3 % (OCUFLOX) OPTH SOL 5ML OD ONE (12:00)
[2023-08-26] MEDS: LIDOCAINE 3.5 % 1ML OPHTH TOPICAL GEL OU ONE (12:00)
[2023-08-26] MEDS: ATROPINE SULFATE 1% OPHTH SOLN 2ML BTL OD SCH (12:26)
[2023-08-26] MEDS: PHENYLEPHRINE 2.5% OPHTH SOL 2ML OD SCH (12:26)
[2023-08-26] MEDS: TROPICAMIDE 1% OPHTH SOLN 15ML OD SCH (12:26)
[2023-08-26] MEDS ORDERED: fentaNYL 100 MCG/2 ML INJECTION As Ordered ONE (12:37)
[2023-08-26] MEDS: LIDOCAINE 1% SDV 5ML VIAL As Ordered ONE (12:51)
[2023-08-26] MEDS: BSS IRRIG/VANCO(10MG)/TOBRA(5MG)/EPINEPH(1:1000-0.5CC)500ML BAG-ORONLY As Ordered ONE (12:51)
[2023-08-26] MEDS: CEFUROXIME 1MG/0.1ML INTRACAMERAL INJ As Ordered ONE (12:52)
[2023-08-26 13:05] VITALS: BP 159/82; TEMP 97.3; O2SAT 100
== END 2023-08-26 13:38 | disposition home or self-care (01) ==
LOC: M SDC 08:46
PROVIDERS: ATTEND Ophthalmology
DX: H25.11 Age-related nuclear cataract, right eye (principal); I48.91 Unspecified atrial fibrillation; I50.9 Heart failure, unspecified; I11.0 Hypertensive heart disease with heart failure; I05.9 Rheumatic mitral valve disease, unspecified; Z95.0 Presence of cardiac pacemaker; G47.30 Sleep apnea, unspecified; Z98.42 Cataract extraction status, left eye; Z79.899 Other long term (current) drug therapy; Z79.01 Long term (current) use of anticoagulants
CPT/HCPCS: 36415; 66984; 84132; 92015; J0697; J3010; V2788

== ENCOUNTER → 2024-02-18 | Outpatient (REF) | payer OTHER ==
[~2024-02-18] MED LIST changes: +EPLE25TA15; +EPLE25TA15 PO; -EPLE25TA2; -EPLE25TA2 PO; +EPLE50TA12 PO; -EPLE50TA8 PO; -PHENYLEPHRINE 10% OPHTH SOL 5ML OD PRN
== END ==
LOC: M LAB REF 13:26
PROVIDERS: ATTEND Internal Medicine
DX: R74.8 Abnormal levels of other serum enzymes (principal)

== ENCOUNTER → 2024-05-24 | Outpatient (REF) | payer OTHER ==
[2024-05-24 18:26] LABS: URIC ACID 6.5 MG/DL (3.7-9.2)
[2024-05-24 18:29] LABS: PHOSPHORUS LEVEL 3.1 MG/DL (2.4-5.1)
[2024-05-24 18:30] LABS: PTH INTACT 527.7 PG/ML (18.5-88.0)
== END ==
LOC: M LAB REF 17:41
PROVIDERS: ATTEND Internal Medicine
DX: I13.2 Hypertensive heart and chronic kidney disease with heart failure and with stage 5 chronic kidney disease, or end stage renal disease (principal); I50.9 Heart failure, unspecified; N18.5 Chronic kidney disease, stage 5

== ENCOUNTER 2024-06-23 18:22 | Inpatient (IN) | payer MEDICARE, OTHER ==
[~2024-06-23] VITALS: Ht 175.3 cm; Wt 95.7 kg
[2024-06-23 20:57] LABS: MEAN CORPUSCULAR HEMOGLOBIN 31.9 pg (27.0-33.0); MEAN CORPUSCULAR HGB CONC 31.4 g/dl (32.0-36.5); MEAN CORPUSCULAR VOLUME 101.6 fl (80.0-96.0); PLATELET COUNT, AUTOMATED 433 10^3/uL (150-450); RED BLOOD COUNT 1.85 10^6/uL (4.30-6.10); WHITE BLOOD COUNT 17.4 10^3/uL (4.0-10.0)
[2024-06-23 21:03] LABS: HEMATOCRIT 18.8 % (42.0-52.0); HEMOGLOBIN 5.9 g/dl (13.5-17.5)
[2024-06-23 21:10] LABS: INR 1.18; PARTIAL THROMBOPLASTIN TIME 30.8 SECONDS (24.8-34.2); PROTHROMBIN TIME 15.3 SECONDS (12.5-14.5)
[2024-06-23 21:26] LABS: CALCIUM LEVEL 8.3 MG/DL (8.3-10.6); CREATININE FOR GFR 3.43 MG/DL (0.70-1.30); GLOMERULAR FILTRATION RATE 18.1 (>35); POTASSIUM SERUM 4.5 MMOL/L (3.5-5.1)
[2024-06-23] MEDS: PANTOPRAZOLE 40MG VIAL IV ONE (21:28)
[2024-06-23] MEDS: PANTOPRAZOLE SODIUM 40 MG in D5W 50 ML IV SCH (21:32)
[2024-06-23 21:58] VITALS: BP 120/58; TEMP 96.8; O2SAT 98
[2024-06-23 21:59] VITALS: BP 116/64; TEMP 96.8; O2SAT 98
[2024-06-23 22:19] VITALS: BP 118/58; TEMP 97.7; O2SAT 100
[2024-06-23] MEDS ORDERED: MAGN400T2 PO (22:24)
[2024-06-23] MEDS ORDERED: EPLE50TA12 PO (22:24)
[2024-06-23] MEDS ORDERED: GABA-1171 PO (22:24)
[2024-06-23] MEDS ORDERED: LEVO150T7 PO (22:24)
[2024-06-23] MEDS ORDERED: DOXE10CA PO (22:24)
[2024-06-23] MEDS ORDERED: CEPH500C PO (22:24)
[2024-06-23] MEDS ORDERED: HOME MED LIST COMPLETE! XX SCH (22:25)
[2024-06-23 23:05] VITALS: BP 123/59; TEMP 97; O2SAT 98
[2024-06-23] MEDS ORDERED: MOM 30ML SUSPENSION UDC PO PRN (23:30)
[2024-06-23] MEDS ORDERED: ACETAMINOPHEN 325 MG TAB PO PRN (23:30)
[2024-06-23] MEDS ORDERED: MAALOX 30 ML SUSP *UDC PO PRN (23:30)
[2024-06-24] VITALS (19 sets, daily range): BP systolic 119–147; BP diastolic 57–93; PULSE 88; TEMP 96.8–98.5; O2SAT 95–100
[2024-06-24] MEDS: LEVALBUTEROL 1.25MG 0.5ML CONCENTRATE NEB NEB ONE (00:09)
[2024-06-24] MEDS: PANTOPRAZOLE SODIUM 40 MG in DEXTROSE 5% (D5W) ADV/MINI-BAG 50 ML IV SCH (00:29)
[2024-06-24] MEDS ORDERED: PILL CUTTER 1 EACH XX PRN (00:55)
[2024-06-24] MEDS: OCTREOTIDE ACETATE 100MCG/ML VIAL **IV ADMINISTRATION ONLY IV ONE (01:47)
[2024-06-24] MEDS: OCTREOTIDE ACETATE 1,200 MCG in NS 238.8 ML IV SCH (01:52)
[2024-06-24] MEDS: cefTRIAXone SOD 1 GM in DEXTROSE 5% (D5W) ADV/MINI-BAG 50 ML IV SCH (02:04)
[2024-06-24 02:14] LABS: APPEARANCE, URINE HAZY (CLEAR); BACTERIA, URINE AUTO NEGATIVE (NEGATIVE); BILIRUBIN, URINE AUTO NEGATIVE (NEGATIVE); BLOOD, URINE BLOOD NEGATIVE (NEGATIVE); COLOR, URINE YELLOW (YELLOW); GLUCOSE, URINE (UA) AUTO NEGATIVE (NEGATIVE); KETONE, URINE AUTO NEGATIVE (NEGATIVE); LEUKOCYTE ESTERASE, URINE AUTO NEGATIVE (NEGATIVE); NITRITE, URINE AUTO NEGATIVE (NEGATIVE); PROTEIN, URINE AUTO NEGATIVE (NEGATIVE); RBC, URINE AUTO 1 /HPF (0-3); SPECIFIC GRAVITY URINE AUTO 1.014 (1.002-1.035); SQUAMOUS EPITHELIAL CELL UR AU 0 /HPF (0-6); UROBILINOGEN, URINE AUTO 0.2 mg/dL (0.0-2.0); WBC, URINE AUTO 1 /HPF (0-3)
[2024-06-24] MEDS: DOXYCYCLINE HYCLATE 100MG TABLET PO SCH (03:54)
[2024-06-24 04:35] LABS: HEMATOCRIT 24.4 % (42.0-52.0); HEMOGLOBIN 7.6 g/dl (13.5-17.5); MEAN CORPUSCULAR HEMOGLOBIN 31.1 pg (27.0-33.0); MEAN CORPUSCULAR HGB CONC 31.1 g/dl (32.0-36.5); PLATELET COUNT, AUTOMATED 373 10^3/uL (150-450); RED BLOOD COUNT 2.44 10^6/uL (4.30-6.10); WHITE BLOOD COUNT 15.3 10^3/uL (4.0-10.0)
[2024-06-24 05:08] LABS: ALBUMIN 2.1 G/DL (3.2-5.2); BILIRUBIN,TOTAL 0.4 MG/DL (0.3-1.2); CREATININE FOR GFR 3.58 MG/DL (0.70-1.30); GLOMERULAR FILTRATION RATE 17.2 (>35); POTASSIUM SERUM 4.2 MMOL/L (3.5-5.1); TOTAL PROTEIN 5.1 G/DL (5.7-8.2)
[2024-06-24 07:20] LABS: HEMATOCRIT 23.8 % (42.0-52.0); HEMOGLOBIN 7.6 g/dl (13.5-17.5)
[2024-06-24] MEDS: busPIRone 5 MG TAB PO SCH (09:00)
[2024-06-24] MEDS: SUCRALFATE 1 GM TAB PO SCH (09:00)
[2024-06-24] MEDS: OXcarbazepine 150 MG TAB PO SCH (09:00)
[2024-06-24] MEDS: DOCUSATE SODIUM 100MG CAPSULE PO SCH (09:00)
[2024-06-24 11:39] LABS: PROCALCITONIN 0.45 ng/ml
[2024-06-24 15:16] LABS: HEMATOCRIT 26.5 % (42.0-52.0); HEMOGLOBIN 8.7 g/dl (13.5-17.5); MEAN CORPUSCULAR HEMOGLOBIN 31.3 pg (27.0-33.0); MEAN CORPUSCULAR HGB CONC 32.8 g/dl (32.0-36.5); MEAN CORPUSCULAR VOLUME 95.3 fl (80.0-96.0); PLATELET COUNT, AUTOMATED 363 10^3/uL (150-450); RED BLOOD COUNT 2.78 10^6/uL (4.30-6.10); WHITE BLOOD COUNT 15.6 10^3/uL (4.0-10.0)
[2024-06-24] MEDS ORDERED: propofoL 200 MG/20 ML VIAL As Ordered ONE (16:09)
[2024-06-24] MEDS ORDERED: LIDOCAINE 2% 100MG/5ML SDV (FOR ANES.) As Ordered ONE (16:09)
[2024-06-24] MEDS ORDERED: GLUCOSE 4 GM CHEW PO PRN (17:20)
[2024-06-24] MEDS ORDERED: DEXTROSE 50% 50ML SYRINGE IV PRN (17:20)
[2024-06-24] MEDS ORDERED: GLUCAGON INJ 1MG VIAL SC PRN (17:20)
[2024-06-24] MEDS: SUCRALFATE SUSP 1GM/10ML UD PO SCH (18:28)
[2024-06-24 18:51] LABS: CALCIUM LEVEL 7.8 MG/DL (8.3-10.6); CREATININE FOR GFR 3.19 MG/DL (0.70-1.30); GLOMERULAR FILTRATION RATE 19.7 (>35); POTASSIUM SERUM 4.3 MMOL/L (3.5-5.1)
[2024-06-24 19:48] LABS: HEMATOCRIT 27.4 % (42.0-52.0); HEMOGLOBIN 8.9 g/dl (13.5-17.5)
[2024-06-24] MEDS: LEVOTHYROXINE 150MCG TABLET (0.15MG) PO SCH (20:58)
[2024-06-24] MEDS: hydrOXYzine 50 MG TAB PO SCH (20:59)
[2024-06-24] MEDS: traZODone 50 MG TAB PO SCH (20:59)
[2024-06-24] MEDS: GABAPENTIN 100 MG CAP PO SCH (20:59)
[2024-06-24] MEDS: PANTOPRAZOLE 40MG VIAL IV SCH (21:03)
[2024-06-25] VITALS: BP 147/62; TEMP 97.2; O2SAT 95
[2024-06-25 00:53] LABS: CREATININE FOR GFR 3.15 MG/DL (0.70-1.30); POTASSIUM SERUM 4.4 MMOL/L (3.5-5.1)
[2024-06-25 01:09] LABS: HEMATOCRIT 26.8 % (42.0-52.0); HEMOGLOBIN 8.8 g/dl (13.5-17.5)
[2024-06-25 04:03] VITALS: BP 136/69; TEMP 97.6; O2SAT 96
[2024-06-25 07:08] LABS: BASO # 0.1 10^3/uL (0.0-0.2); BASO % 0.4 % (0.0-1.0); EOS # 0.4 10^3/uL (0.0-0.5); EOS % 1.6 % (0.0-3.0); HEMOGLOBIN 8.7 g/dl (13.5-17.5); LYMPH # 0.8 10^3/uL (1.5-5.0); LYMPH % 3.5 % (24.0-44.0); MEAN CORPUSCULAR HGB CONC 32.2 g/dl (32.0-36.5); MEAN CORPUSCULAR VOLUME 96.1 fl (80.0-96.0); MONO # 1.4 10^3/uL (0.0-0.8); NEUTROPHILS # 20.7 10^3/uL (1.5-8.5); NEUTROPHILS % 87.2 % (36.0-66.0); PLATELET COUNT, AUTOMATED 379 10^3/uL (150-450); RED BLOOD COUNT 2.81 10^6/uL (4.30-6.10); WHITE BLOOD COUNT 23.7 10^3/uL (4.0-10.0)
[2024-06-25 07:39] LABS: CALCIUM LEVEL 8.2 MG/DL (8.3-10.6); CREATININE FOR GFR 3.2 MG/DL (0.70-1.30); GLOMERULAR FILTRATION RATE 19.6 (>35); MAGNESIUM LEVEL 1.8 MG/DL (1.8-2.4); POTASSIUM SERUM 4.4 MMOL/L (3.5-5.1)
[2024-06-25 07:41] VITALS: BP 136/68; TEMP 97.6; O2SAT 94
[2024-06-25] MEDS: TORSEMIDE 100 MG TAB PO SCH (10:03)
[2024-06-25] MEDS: ALBUTEROL SULFATE 2.5MG/0.5ML INH NEB SOLN NEB PRN (12:02)
[2024-06-25 13:21] LABS: CALCIUM LEVEL 8.1 MG/DL (8.3-10.6); CREATININE FOR GFR 3.07 MG/DL (0.70-1.30); GLOMERULAR FILTRATION RATE 20.6 (>35); POTASSIUM SERUM 3.8 MMOL/L (3.5-5.1)
[2024-06-25 16:00] VITALS: BP 124/64; TEMP 97.6; O2SAT 92
[2024-06-25 18:53] LABS: CALCIUM LEVEL 8.3 MG/DL (8.3-10.6); CREATININE FOR GFR 3.05 MG/DL (0.70-1.30); GLOMERULAR FILTRATION RATE 20.7 (>35); POTASSIUM SERUM 3.7 MMOL/L (3.5-5.1)
[2024-06-25 19:40] VITALS: BP 137/66; TEMP 97.1; O2SAT 97
[2024-06-26 00:22] LABS: CALCIUM LEVEL 7.9 MG/DL (8.3-10.6); CREATININE FOR GFR 3.13 MG/DL (0.70-1.30); GLOMERULAR FILTRATION RATE 20.1 (>35); POTASSIUM SERUM 3.8 MMOL/L (3.5-5.1)
[2024-06-26 04:00] VITALS: BP 124/59; TEMP 97.2; O2SAT 93
[2024-06-26 05:39] LABS: BASO # 0.1 10^3/uL (0.0-0.2); BASO % 0.4 % (0.0-1.0); EOS # 0.6 10^3/uL (0.0-0.5); EOS % 3.4 % (0.0-3.0); HEMATOCRIT 25.9 % (42.0-52.0); HEMOGLOBIN 8.4 g/dl (13.5-17.5); LYMPH # 1.1 10^3/uL (1.5-5.0); LYMPH % 6.7 % (24.0-44.0); MEAN CORPUSCULAR HEMOGLOBIN 31.5 pg (27.0-33.0); MEAN CORPUSCULAR HGB CONC 32.4 g/dl (32.0-36.5); MONO # 1.1 10^3/uL (0.0-0.8); MONO % 6.8 % (2.0-8.0); NEUTROPHILS # 13.4 10^3/uL (1.5-8.5); NEUTROPHILS % 81.4 % (36.0-66.0); PLATELET COUNT, AUTOMATED 334 10^3/uL (150-450); RED BLOOD COUNT 2.67 10^6/uL (4.30-6.10); WHITE BLOOD COUNT 16.4 10^3/uL (4.0-10.0)
[2024-06-26 06:07] LABS: C REACTIVE PROTEIN QUANTITATIV 9.36 MG/DL (<1.0); CALCIUM LEVEL 7.8 MG/DL (8.3-10.6); CREATININE FOR GFR 3.21 MG/DL (0.70-1.30); FERRITIN 179.2 NG/ML (10.5-307.3); GLOMERULAR FILTRATION RATE 19.5 (>35); MAGNESIUM LEVEL 1.5 MG/DL (1.8-2.4); PHOSPHORUS LEVEL 4.3 MG/DL (2.4-5.1)
[2024-06-26 07:26] VITALS: BP 133/65; TEMP 97.9; O2SAT 98
[2024-06-26 07:51] LABS: PROCALCITONIN 0.5 ng/ml
[2024-06-26 12:00] VITALS: BP 127/62; TEMP 97.9; O2SAT 98
[2024-06-26 12:37] LABS: CALCIUM LEVEL 7.7 MG/DL (8.3-10.6); CREATININE FOR GFR 3.07 MG/DL (0.70-1.30); GLOMERULAR FILTRATION RATE 20.6 (>35); POTASSIUM SERUM 3.8 MMOL/L (3.5-5.1)
[2024-06-26] MEDS: LEVALBUTEROL 1.25MG 0.5ML CONCENTRATE NEB INH PRN (13:42)
[2024-06-26 14:24] VITALS: BP 119/66; O2SAT 98
[2024-06-26] MEDS: HEPARIN SOD (PORCINE) 5000UNITS/ML 1ML VIAL/SYRINGE PD PRN (14:32)
[2024-06-26] MEDS: FERRIC CARBOXYMALTOSE INJ 750 MG, VIAL MATE ADAPTER 1 EACH in NS 100 ML IV ONE (15:08)
[2024-06-26] MEDS: MAGNESIUM OXIDE 400MG TAB (MAG-OX) PO SCH (16:05)
[2024-06-26] MEDS: MAG SULF 1GM/100ML (MAG RUN) 1 GM in IV 1 EA IV SCH (16:05)
[2024-06-26 16:22] VITALS: BP 125/59; TEMP 97.6; O2SAT 97
[2024-06-26 20:07] VITALS: BP 120/65; TEMP 97.2; O2SAT 99
[2024-06-27 04:05] VITALS: BP 129/65; TEMP 97; O2SAT 94
[2024-06-27 04:23] LABS: BASO % 0.3 % (0.0-1.0); EOS # 0.6 10^3/uL (0.0-0.5); EOS % 4.3 % (0.0-3.0); HEMATOCRIT 27.6 % (42.0-52.0); HEMOGLOBIN 8.8 g/dl (13.5-17.5); LYMPH # 1.1 10^3/uL (1.5-5.0); MEAN CORPUSCULAR HEMOGLOBIN 30.4 pg (27.0-33.0); MEAN CORPUSCULAR HGB CONC 31.9 g/dl (32.0-36.5); MEAN CORPUSCULAR VOLUME 95.5 fl (80.0-96.0); MONO % 7.2 % (2.0-8.0); NEUTROPHILS # 10.8 10^3/uL (1.5-8.5); NEUTROPHILS % 78.9 % (36.0-66.0); PLATELET COUNT, AUTOMATED 355 10^3/uL (150-450); RED BLOOD COUNT 2.89 10^6/uL (4.30-6.10); WHITE BLOOD COUNT 13.7 10^3/uL (4.0-10.0)
[2024-06-27 04:46] LABS: MAGNESIUM LEVEL 1.9 MG/DL (1.8-2.4)
[2024-06-27 07:10] LABS: CALCIUM LEVEL 7.9 MG/DL (8.3-10.6); CREATININE FOR GFR 2.9 MG/DL (0.70-1.30); POTASSIUM SERUM 3.4 MMOL/L (3.5-5.1)
[2024-06-27] MEDS ORDERED: CALCIUM CARBONATE 500 MG CHEW U/D PO PRN (07:10)
[2024-06-27 08:30] VITALS: BP 125/66; TEMP 97; O2SAT 92
[2024-06-27] MEDS: CALCITRIOL 0.25 MCG CAP (S0169) PO SCH (10:21)
[2024-06-27 12:00] VITALS: BP 134/70; TEMP 97; O2SAT 95
[2024-06-27 17:42] LABS: LYME TOTAL ANTIBODY CIA <= 0.90 Index (<=0.90)
[2024-06-27 19:56] VITALS: BP 137/67; TEMP 97.4; O2SAT 95
[2024-06-27] MEDS: CEFDINIR 300 MG CAP (OMNICEF) PO SCH (20:47)
[2024-06-28 04:25] VITALS: BP 133/66; TEMP 97.3; O2SAT 96
[2024-06-28 08:00] VITALS: BP 112/56; TEMP 97.2; O2SAT 96
[2024-06-28 08:53] LABS: BASO # 0.1 10^3/uL (0.0-0.2); BASO % 0.5 % (0.0-1.0); EOS # 0.5 10^3/uL (0.0-0.5); EOS % 3.7 % (0.0-3.0); HEMATOCRIT 30.2 % (42.0-52.0); HEMOGLOBIN 9.4 g/dl (13.5-17.5); LYMPH # 0.8 10^3/uL (1.5-5.0); LYMPH % 5.3 % (24.0-44.0); MEAN CORPUSCULAR HEMOGLOBIN 30.4 pg (27.0-33.0); MEAN CORPUSCULAR HGB CONC 31.1 g/dl (32.0-36.5); MEAN CORPUSCULAR VOLUME 97.7 fl (80.0-96.0); MONO # 0.9 10^3/uL (0.0-0.8); MONO % 6.5 % (2.0-8.0); NEUTROPHILS % 83.3 % (36.0-66.0); PLATELET COUNT, AUTOMATED 373 10^3/uL (150-450); RED BLOOD COUNT 3.09 10^6/uL (4.30-6.10); WHITE BLOOD COUNT 14.4 10^3/uL (4.0-10.0)
[2024-06-28 09:08] LABS: CREATININE FOR GFR 2.68 MG/DL (0.70-1.30); GLOMERULAR FILTRATION RATE 24.1 (>35); MAGNESIUM LEVEL 1.7 MG/DL (1.8-2.4); POTASSIUM SERUM 3.6 MMOL/L (3.5-5.1)
[2024-06-28] MEDS: MAGNESIUM OXIDE 400MG TAB (MAG-OX) PO SCH (10:06)
[2024-06-28] MEDS: NYSTATIN 100,000 UNITS/GM TOPICAL PWD 15GM TOP SCH (11:20)
[2024-06-28] MEDS: DARBEPOETIN 100MCG/0.5ML *NON-DIALYSIS* SYRINGE SC SCH (11:20)
[2024-06-28] MEDS ORDERED: MAGN400T2 PO (16:06)
[2024-06-28] MEDS ORDERED: CEFD300CAP PO (16:06)
[2024-06-28] MEDS ORDERED: CALC1CAP31 PO (16:06)
[2024-06-28] MEDS ORDERED: DOXY100T PO (16:06)
[2024-06-28] MEDS ORDERED: NYST10006 TOP (16:06)
== END 2024-06-28 17:54 | disposition home health service (06) | DRG 377 ==
LOC: M ED 18:22 → M ED INP 23:00 → M PCU 06-24 00:51
PROVIDERS: ADMIT Family Medicine; ATTEND Internal Medicine
PROC: 3E1M39Z Irrigation of Peritoneal Cavity using Dialysate, Percutaneous Approach (ICD-10-PCS; 2024-06-23)
PROC: 0DB68ZX Excision of Stomach, Via Natural or Artificial Opening Endoscopic, Diagnostic (ICD-10-PCS; principal; 2024-06-24 15:00)
DX: K25.4 Chronic or unspecified gastric ulcer with hemorrhage (principal); N18.6 End stage renal disease; I48.11 Longstanding persistent atrial fibrillation; I50.32 Chronic diastolic (congestive) heart failure; I13.2 Hypertensive heart and chronic kidney disease with heart failure and with stage 5 chronic kidney disease, or end stage renal disease; D62 Acute posthemorrhagic anemia; E78.5 Hyperlipidemia, unspecified; K21.9 Gastro-esophageal reflux disease without esophagitis; E03.9 Hypothyroidism, unspecified; D72.829 Elevated white blood cell count, unspecified; G47.33 Obstructive sleep apnea (adult) (pediatric); D63.1 Anemia in chronic kidney disease; F41.9 Anxiety disorder, unspecified; D49.0 Neoplasm of unspecified behavior of digestive system; R53.1 Weakness; Z99.2 Dependence on renal dialysis; Z86.73 Personal history of transient ischemic attack (TIA), and cerebral infarction without residual deficits; Z95.0 Presence of cardiac pacemaker; Z95.2 Presence of prosthetic heart valve; Z95.828 Presence of other vascular implants and grafts; Z87.891 Personal history of nicotine dependence; L89.322 Pressure ulcer of left buttock, stage 2; Z79.82 Long term (current) use of aspirin; Z79.890 Hormone replacement therapy; Z79.899 Other long term (current) drug therapy; Z88.8 Allergy status to other drugs, medicaments and biological substances

== ENCOUNTER 2024-07-05 11:22 | Emergency (ER) | payer OTHER ==
[~2024-07-05] VITALS: Ht 175.3 cm; Wt 91.0 kg
[~2024-07-05 11:22] MED LIST changes: +CALC1CAP31 PO; +CEFD300CAP PO; +CEPH500C PO; +DOXE10CA PO; +DOXY100T PO; +GABA-1171 PO; +LEVO150T7 PO; +MAGN400T2 PO; +NYST10006 TOP
[2024-07-05 14:04] LABS: BASO # 0.1 10^3/uL (0.0-0.2); BASO % 0.5 % (0.0-1.0); EOS # 0.2 10^3/uL (0.0-0.5); EOS % 1.6 % (0.0-3.0); HEMATOCRIT 31.4 % (42.0-52.0); HEMOGLOBIN 9.6 g/dl (13.5-17.5); LYMPH # 0.9 10^3/uL (1.5-5.0); LYMPH % 6.9 % (24.0-44.0); MEAN CORPUSCULAR HEMOGLOBIN 30.2 pg (27.0-33.0); MEAN CORPUSCULAR HGB CONC 30.6 g/dl (32.0-36.5); MEAN CORPUSCULAR VOLUME 98.7 fl (80.0-96.0); MONO % 7.4 % (2.0-8.0); NEUTROPHILS # 11.2 10^3/uL (1.5-8.5); NEUTROPHILS % 83.2 % (36.0-66.0); PLATELET COUNT, AUTOMATED 323 10^3/uL (150-450); RED BLOOD COUNT 3.18 10^6/uL (4.30-6.10); WHITE BLOOD COUNT 13.4 10^3/uL (4.0-10.0)
[2024-07-05 14:13] LABS: INR 1.08; PROTHROMBIN TIME 14.3 SECONDS (12.5-14.5)
[2024-07-05 14:26] LABS: ALBUMIN 2.4 G/DL (3.2-5.2); BILIRUBIN,DIRECT 0.2 MG/DL (<0.4); BILIRUBIN,TOTAL 0.4 MG/DL (0.3-1.2); C REACTIVE PROTEIN QUANTITATIV 5.44 MG/DL (<1.0); CALCIUM LEVEL 8.8 MG/DL (8.3-10.6); CREATININE FOR GFR 2.65 MG/DL (0.70-1.30); GLOMERULAR FILTRATION RATE 22.5 (>35); POTASSIUM SERUM 4.1 MMOL/L (3.5-5.1); TOTAL PROTEIN 5.5 G/DL (5.7-8.2)
[2024-07-05 14:30] LABS: ERYTHROCYTE SEDIMENTATION RATE 49 mm/hr (0-20)
[2024-07-05 17:15] VITALS: BP 128/66; TEMP 97.1; O2SAT 100
== END 2024-07-05 17:35 | disposition home or self-care (01) ==
LOC: M ED 11:22
DX: R22.32 Localized swelling, mass and lump, left upper limb (principal); I48.91 Unspecified atrial fibrillation; I50.22 Chronic systolic (congestive) heart failure; E03.9 Hypothyroidism, unspecified; K21.9 Gastro-esophageal reflux disease without esophagitis; N18.9 Chronic kidney disease, unspecified; Z88.8 Allergy status to other drugs, medicaments and biological substances; Z79.01 Long term (current) use of anticoagulants; Z79.2 Long term (current) use of antibiotics; Z79.899 Other long term (current) drug therapy

== ENCOUNTER → 2024-08-16 | Outpatient (REF) | payer OTHER ==
[~2024-08-16] MED LIST changes: +SIME1CAP4 PO
[2024-08-16 19:23] LABS: ATYPICAL LYMPH 1 % (0-5); BASOPHILS 1 % (0-1); EOSINOPHILS 1 % (0-3); LYMPHOCYTES 8 % (16-44); MONOCYTES 7 % (0-5); NEUTROPHILS 82 % (28-66)
[2024-08-16 19:25] LABS: PLATELET CLUMPS SMALL AMT; PLATELET ESTIMATE INCREASED (NORMAL)
== END ==
LOC: M LAB REF 17:16
PROVIDERS: ATTEND Internal Medicine
DX: N18.9 Chronic kidney disease, unspecified (principal); D63.1 Anemia in chronic kidney disease

== ENCOUNTER → 2024-10-17 | Outpatient (REF) | payer OTHER ==
[~2024-10-17] MED LIST changes: -AMIO200T49 PO; +AMIO200T54 PO; +CEFE1INJ2 PD; +LEVO112T2 PO; +MAGN400C2 PO; -PRAV20TA2 PO; +PRAV20TA78 PO; -PRAV40TA2 PO; +PRAV40TA85 PO
[2024-10-17 18:40] LABS: IRON (FE) 76.0 UG/DL (65-175); PERCENT SATURATION 38.2 % (19.7-50.0)
== END ==
LOC: M LAB REF 17:24
PROVIDERS: ATTEND Internal Medicine
DX: N18.9 Chronic kidney disease, unspecified (principal); D63.1 Anemia in chronic kidney disease

== ENCOUNTER → 2025-01-26 | Outpatient (REF) | payer OTHER ==
[2025-01-26 18:59] LABS: IRON (FE) 64.0 UG/DL (65-175); PERCENT SATURATION 28.2 % (19.7-50.0)
== END ==
LOC: M LAB REF 17:23
PROVIDERS: ATTEND Internal Medicine
DX: D64.9 Anemia, unspecified (principal)